=== PATIENT | female | born 1935 | race Caucasian/White ===

== ENCOUNTER 2016-11-22 20:02 | Emergency (ER) | payer MEDICARE, OTHER ==
[~2016-11-22] VITALS: Ht 157.5 cm; Wt 67.8 kg
[~2016-11-22 20:02] MED LIST: CALC-603 PO; DOCU-139 PO; ESTR0.3T26 PO; LEVO125T70 PO; MELO-31 PO; MULT-806 PO; [UNRECOGNIZED DRUG - CODE] PO
[2016-11-22 20:08] VITALS: Ht 157.5 cm; Wt 67.8 kg
--- OUTSIDE RECORDS SUMMARY | 2016-11-22 20:08 | XMS REPORT | Referral Summary ---
Author Author [facility], [facility] Medicine Organization [facility] Address Unknown Phone Unavailable Care Team Providers Care Overnight Caregiver Name Role Phone Marlena Silva Primary Care Physician [phone] Encounter Date(s): 10/27/15 - 10/27/15 [facility], [address] [place] [address] Discharge Diagnosis: Hypertension Discharge Diagnosis: Encounter for removal of sutures Discharge Disposition: 01-Home or Self Care Attending Physician: Tahira Reyes PA-C Admitting Physician: Tahira Reyes PA-C Vital Signs Most recent to 1 oldest [Reference Range]: Peripheral Pulse 68 bpm Rate [60-100 bpm] (10/27/15 12:58 PM) Blood Pressure 165/85 mmHg [90-140/60-90 mmHg] *HI* (10/27/15 12:58 PM) Problem List Condition Effective Dates Status Health Status Informant Allergic Active rhinitis(Confirmed) Hay fever(Confirmed) Active Benign essential Active hypertension(Confirm ed) Bronchitis(Confirmed Active ) Cervical Active radiculopathy(Confir med) Cervical vertebral Active fusion(Confirmed) Cervical Active spondylosis(Confirme d) Cervicogenic Active headache(Confirmed) 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 ) Degeneration of Active lumbar disc(Confirmed) HEADACHE(Confirmed) Active Herpes 2011 Active zoster(Confirmed) 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) IBS (irritable bowel Active syndrome)(Confirmed) Lumbago(Confirmed) Active Lumbosacral Active spondylosis w/o myelopathy(Confirmed ) Neck pain Active (finding)(Confirmed) Cervicalgia(Confirme Active d) Osteoarthritis(Confi Resolved rmed) Overweight(Confirmed Active ) Parotidectomy(Confir Resolved med) PUD (peptic ulcer Active disease)(Confirmed) Sinus Active infections(Confirmed ) Spinal stenosis in Active cervical region (disorder)(Confirmed ) Spinal stenosis, Active lumbar(Confirmed) Spondylolisthesis 2010 Resolved l4-5, l5-S1(Confirmed) Subacromial Active bursitis(Confirmed) Thoracic or Active lumbosacral neuritis or radiculitis, unspecified(Confirme d) thyroid Resolved disease(Confirmed) Ulcers(Confirmed) Active Chicken Active pox(Confirmed) Allergies, Adverse Reactions, Alerts Substance Reaction Severity Status erythromycin Dizziness Active vertigo penicillin Hives/Skin Rash Active WELTS sulfamethoxazole rash Active Medications calcium calcium, 600 mg, Daily, 0 Refill(s) Start Date: 02/04/14 Status: Ordered levothyroxine 100 mcg (0.1 mg) oral tablet See Instructions, TAKE ONE TABLET BY MOUTH DAILY, # 90 tabs, eRx: [facility] #[id number], TAKE ONE TABLET BY MOUTH DAILY Start Date: 09/22/15 Status: Ordered lisinopril 20 mg oral tablet 20 mg 1 tabs, Oral, Daily, # 30 tabs, 1 Refill(s), Pharmacy: [facility] # [id number] Start Date: 10/27/15 Status: Ordered Multivitamin Multivitamin, take 1 by oral route every day, 0 Refill(s) Start Date: 02/04/14 Status: Ordered [place] 5 mg-325 mg oral tablet 1 tabs, Oral, q6hr, as needed for pain, rx must last 30 days Needs appt. for next refill., # 90 tabs, 0 Refill(s) Start Date: 07/15/15 Status: Ordered omeprazole 20 mg oral delayed release capsule See Instructions, TAKE ONE CAPSULE BY MOUTH DAILY, # 30 caps, eRx: [facility] #[id number], TAKE ONE CAPSULE BY MOUTH DAILY Start Date: 10/14/15 Status: Ordered Stool softener Stool softener, take 1 capsule by oral route every day at bedtime as needed, 0 Refill(s) Start Date: 02/04/14 Status: Ordered Results No data available for this section Immunizations Vaccine Date Refusal Reason hepatitis A adult vaccine 06/23/05 hepatitis A adult vaccine 12/29/04 influenza virus vaccine, live 09/14/13 influenza virus vaccine, live 09/15/12 pneumococcal 23-polyvalent vaccine 07/01/06 pneumococcal 23-polyvalent vaccine 05/26/01 tetanus-diphth toxoids (Td) adult/adol 06/11/03 Procedures Procedure Date Related Diagnosis Body Site Left C3-4/C4-5 Transforaminal 08/19/15 Left C2-3 Radiofrequency 06/18/15 Left C4-6 Radiofrequency 04/30/15 Left C2-3 Radiofrequency 10/23/14 Left C2-3 Medial Branch Block w/Diff 09/26/14 Left C2-3 Medial Branch Block 09/12/14 Left Subacromial Bursa Injection Under US 08/26/14 Left C4-6 Radiofrequency 03/06/14 Left C4-6 Medial Branch Block 02/26/14 Left C4-6 Medial Branch Block 02/19/14 NKECHI/BSO 02/06/14 Left C5-6/C6-7 Transforaminal 01/17/14 Left C5-6/C6-7 Transforaminal 12/25/13 Left L3-4/L4-5 Transforaminal 12/13/13 cysto,retrograde pyelogram, balloon dil or 01/20/11 right UPJ obstru bilateral L4-5 Transforaminal 09/29/10 Neck Surgery 2003 Hysterectomy1 1976 Breast Biospy Cataract extraction left Cataract extraction Right Knee Replacement 1ovary sparing Social History Social History Type Response Smoking Status Never smoker Assessment and Plan Extracted from: Title: Ambulatory Patient Education Author: Tahira Reyes PA-C Date : 10/27/15 Family Medicine Suture Removal, Care After Refer to this sheet in the next few weeks. These instructions provide you with information on caring for yourself after your procedure. Your health care provider may also give you more specific instructions. Your treatment has been planned according to current medical practices, but problems sometimes occur. Call your health care provider if you have any problems or questions after your procedure. WHAT TO EXPECT AFTER THE PROCEDURE After your stitches (sutures) are removed, it is typical to have the following: Some discomfort and swelling in the wound area. Slight redness in the area. HOME CARE INSTRUCTIONS If you have skin adhesive strips over the wound area, do not take the strips off. They will fall off on their own in a few days. If the strips remain in place after 14 days, you may remove them. Change any bandages (dressings) at least once a day or as directed by your health care provider. If the bandage sticks, soak it off with warm, soapy water. Apply cream or ointment only as directed by your health care provider. If using cream or ointment, wash the area with soap and water 2 times a day to remove all the cream or ointment. Rinse off the soap and pat the area dry with a clean towel. Keep the wound area dry and clean. If the bandage becomes wet or dirty, or if it develops a bad smell, change it as soon as possible. Continue to protect the wound from injury. Use sunscreen when out in the sun. New scars become sunburned easily. SEEK MEDICAL CARE IF: You have increasing redness, swelling, or pain in the wound. You see pus coming from the wound. You have a fever. You notice a bad smell coming from the wound or dressing. Your wound breaks open (edges not staying together). This information is not intended to replace advice given to you by your health care provider. Make sure you discuss any questions you have with your health care provider. Document Released: 05/17/2002 Document Revised: 06/12/2014 Document Reviewed: [facility] Patient Information 2015 [employer]. Hypertension Hypertension, commonly called high blood pressure, is when the force of blood pumping through your arteries is too strong. Your arteries are the blood vessels that carry blood from your heart throughout your body. A blood pressure reading consists of a higher number over a lower number, such as 110/72. The higher number (systolic) is the pressure inside your arteries when your heart pumps. The lower number (diastolic) is the pressure inside your arteries when your heart relaxes. Ideally you want your blood pressure below 120/80. Hypertension forces your heart to work harder to pump blood. Your arteries may become narrow or stiff. Having hypertension puts you at risk for heart disease, stroke, and other problems. RISK FACTORS Some risk factors for high blood pressure are controllable. Others are not. Risk factors you cannot control include: Race. You may be at higher risk if you are . Age. Risk increases with age. Gender. Men are at higher risk than women before age 45 years. After age 65, women are at higher risk than men. Risk factors you can control include: Not getting enough exercise or physical activity. Being overweight. Getting too much fat, sugar, calories, or salt in your diet. Drinking too much alcohol. SIGNS AND SYMPTOMS Hypertension does not usually cause signs or symptoms. Extremely high blood pressure (hypertensive crisis) may cause headache, anxiety, shortness of breath , and nosebleed. DIAGNOSIS To check if you have hypertension, your health care provider will measure your blood pressure while you are seated, with your arm held at the level of your heart. It should be measured at least twice using the same arm. Certain conditions can cause a difference in blood pressure between your right and left arms. A blood pressure reading that is higher than normal on one occasion does not mean that you need treatment. If it is not clear whether you have high blood pressure, you may be asked to return on a different day to have your blood pressure checked again. Or, you may be asked to monitor your blood pressure at home for 1 or more weeks. TREATMENT Treating high blood pressure includes making lifestyle changes and possibly taking medicine. Living a healthy lifestyle can help lower high blood pressure. You may need to change some of your habits. Lifestyle changes may include: Following the DASH diet. This diet is high in fruits, vegetables, and whole grains. It is low in salt, red meat, and added sugars. Keep your sodium intake below 2,300 mg per day. Getting at least 3045 minutes of aerobic exercise at least 4 times per week. Losing weight if necessary. Not smoking. Limiting alcoholic beverages. Learning ways to reduce stress. Your health care provider may prescribe medicine if lifestyle changes are not enough to get your blood pressure under control, and if one of the following is true: Your systolic blood pressure is above 150. Your diastolic blood pressure is above 90. You have diabetes, and your systolic blood pressure is over 140 or your diastolic blood pressure is over 85. You have heart disease or have had a stroke or heart attack, and your blood pressure is above 130 over 80, which is written as 130/80. HOME CARE INSTRUCTIONS Have your blood pressure rechecked as directed by your health care provider. Take medicines only as directed by your health care provider. Follow the directions carefully. Blood pressure medicines must be taken as prescribed. The medicine does not work as well when you skip doses. Skipping doses also puts you at risk for problems. Do not smoke. Monitor your blood pressure at home as directed by your health care provider. SEEK MEDICAL CARE IF: You think you are having a reaction to medicines taken. You have recurrent headaches or feel dizzy. You have swelling in your ankles. You have trouble with your vision. SEEK IMMEDIATE MEDICAL CARE IF: You develop a severe headache or confusion. You have unusual weakness, numbness, or feel faint. You have severe chest or abdominal pain. You vomit repeatedly. You have trouble breathing. MAKE SURE YOU: Understand these instructions. Will watch your condition. Will get help right away if you are not doing well or get worse. This information is not intended to replace advice given to you by your health care provider. Make sure you discuss any questions you have with your health care provider. Document Released: 08/22/2006 Document Revised: 06/10/2015 Document Reviewed: [facility] Patient Information 2015 [employer]. No follow up information was provided. Extracted from: Title: Office Visit Note- Suture Author: Tahira Reyes PA-C Date: removal/HTN Assessment/Plan Encounter for removal of sutures Sutures were easily removed. Lesion was benign, so no further treatment needed. Ordered: Office Visit Level 4 Est 59887 Hypertension I d/w pt that we should increase lisinopril to 20mg daily. She will take 2 tabs ofwhat she has at home, and a new script wassent to pharmacy. She is to f/u if BP's are still elevated. Ordered: Office Visit Level 4 Est 86258 Orders: lisinopril, 20 mg 1 tabs, Oral, Daily, # 30 tabs, 1 Refill(s), Pharmacy: [facility] #[id number]
--- OUTSIDE RECORDS SUMMARY | 2016-11-22 20:08 | XMS REPORT | Referral Summary ---
Author Author [facility], Family Medicine Organization [facility] Address Unknown Phone Unavailable Care Team Providers Care Cinder Block Mason Name Role Phone Marlena Silva Primary Care Physician [phone] Encounter VC Date(s): 09/29/15 - 09/29/15 [facility] [address] [place] [address]- Discharge Disposition: 01-Home or Self Care Attending Physician: Miguel Angel Silva MD Admitting Physician: Miguel Angel Silva MD Vital Signs Most recent to 1 oldest [Reference Range]: Peripheral Pulse 72 bpm Rate [60-100 bpm] (09/29/15 8:50 AM) Blood Pressure 138/80 mmHg [90-140/60-90 mmHg] (09/29/15 8:50 AM) Problem List Condition Effective Dates Status Health Status Informant Allergic Active rhinitis(Confirmed) Hay fever(Confirmed) Active Bronchitis(Confirmed Active ) Cervical Active radiculopathy(Confir med) Cervical vertebral Active fusion(Confirmed) Cervical Active spondylosis(Confirme d) Cervicogenic Active headache(Confirmed) 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 ) Degeneration of Active lumbar disc(Confirmed) HEADACHE(Confirmed) Active Herpes 2011 Active zoster(Confirmed) IBS (irritable bowel Active syndrome)(Confirmed) Lumbago(Confirmed) Active Lumbosacral Active spondylosis w/o myelopathy(Confirmed ) Neck pain Active (finding)(Confirmed) Cervicalgia(Confirme Active d) Osteoarthritis(Confi Resolved rmed) Overweight(Confirmed Active ) Parotidectomy(Confir Resolved med) PUD (peptic ulcer Active disease)(Confirmed) Sinus Active infections(Confirmed ) Spinal stenosis in Active cervical region (disorder)(Confirmed ) Spinal stenosis, Active lumbar(Confirmed) Spondylolisthesis 2011 Resolved l4-5, l5-S1(Confirmed) Subacromial Active bursitis(Confirmed) Thoracic [...] BY MOUTH DAILY, # 90 tabs, eRx: [facility] #[id number], TAKE ONE TABLET BY MOUTH DAILY Start Date: 09/22/15 Status: Ordered Multivitamin Multivitamin, take 1 by oral route every day, 0 Refill(s) Start Date: 02/04/14 Status: Ordered [place] 5 mg-325 mg oral tablet 1 tabs, Oral, q6hr, as needed for pain, rx must last 30 days Needs appt. for next refill., # 90 tabs, 0 Refill(s) Start Date: 07/15/15 Status: Ordered omeprazole 20 mg oral delayed release capsule See Instructions, TAKE ONE CAPSULE BY MOUTH DAILY, # 30 caps, eRx: [facility] #[id number], TAKE ONE CAPSULE BY MOUTH DAILY Start Date: 09/15/15 Status: Ordered Stool softener Stool softener, take [...] obstru bilateral L4-5 Transforaminal 09/29/10 Neck Surgery 2004 Hysterectomy1 1977 Breast Biospy Cataract extraction left Cataract extraction Right Knee Replacement 1ovary sparing Social History Social History Type Response Smoking Status Never smoker Assessment and Plan Extracted from: Title: Ambulatory Patient Education Author: Miguel Angel Silva MD Date: Allergy Allergic Rhinitis Allergic rhinitis is when the mucous membranes in the nose respond to allergens. Allergens are particles in the air that cause your body to have an allergic reaction. This causes you to release allergic antibodies. Through a chain of events, these eventually cause you to release histamine into the blood stream. Although meant to protect the body, it is this release of histamine that causes your discomfort, such as frequent sneezing, congestion, and an itchy , runny nose. CAUSES Seasonal allergic rhinitis (hay fever) is caused by pollen allergens that may come from grasses, trees, and weeds. Year-round allergic rhinitis (perennial allergic rhinitis) is caused by allergens such as house dust mites, pet dander, and mold spores. SYMPTOMS Nasal stuffiness (congestion). Itchy, runny nose with sneezing and tearing of the eyes. DIAGNOSIS Your health care provider can help you determine the allergen or allergens that trigger your symptoms. If you and your health care provider are unable to determine the allergen, skin or blood testing may be used. TREATMENT Allergic rhinitis does not have a cure, but it can be controlled by: Medicines and allergy shots (immunotherapy). Avoiding the allergen. Hay fever may often be treated with antihistamines in pill or nasal spray forms. Antihistamines block the effects of histamine. There are over-the- counter medicines that may help with nasal congestion and swelling around the eyes. Check with your health care provider before taking or giving this medicine. If avoiding the allergen or the medicine prescribed do not work, there are many new medicines your health care provider can prescribe. Stronger medicine may be used if initial measures are ineffective. Desensitizing injections can be used if medicine and avoidance does not work. Desensitization is when a patient is given ongoing shots until the body becomes less sensitive to the allergen. Make sure you follow up with your health care provider if problems continue. HOME CARE INSTRUCTIONS It is not possible to completely avoid allergens, but you can reduce your symptoms by taking steps to limit your exposure to them. It helps to know exactly what you are allergic to so that you can avoid your specific triggers. SEEK MEDICAL CARE IF: You have a fever. You develop a cough that does not stop easily (persistent). You have shortness of breath. You start wheezing. Symptoms interfere with normal daily activities. Document Released: 05/17/2002 Document Revised: 08/27/2014 Document Reviewed: [facility] Patient Information 2015 [employer]. This information is not intended to replace advice given to you by your health care provider. Make sure you discuss any questions you have with your health care provider. Family Medicine Radicular Pain Radicular pain in either the arm or leg is usually from a bulging or herniated disk in the spine. A piece of the herniated disk may press against the nerves as the nerves exit the spine. This causes pain which is felt at the tips of the nerves down the arm or leg. Other causes of radicular pain may include: Fractures. Heart disease. Cancer. An abnormal and usually degenerative state of the nervous system or nerves (neuropathy). Diagnosis may require CT or MRI scanning to determine the primary cause. Nerves that start at the neck (nerve roots) may cause radicular pain in the outer shoulder and arm. It can spread down to the thumb and fingers. The symptoms vary depending on which nerve root has been affected. In most cases radicular pain improves with conservative treatment. Neck problems may require physical therapy, a neck collar, or cervical traction. Treatment may take many weeks, and surgery may be considered if the symptoms do not improve. Conservative treatment is also recommended for sciatica. Sciatica causes pain to radiate from the lower back or buttock area down the leg into the foot. Often there is a history of back problems. Most patients with sciatica are better after 2 to 4 weeks of rest and other supportive care. Short term bed rest can reduce the disk pressure considerably. Sitting, however, is not a good position since this increases the pressure on the disk. You should avoid bending , lifting, and all other activities which make the problem worse. Traction can be used in severe cases. Surgery is usually reserved for patients who do not improve within the first months of treatment. Only take [id number] or prescription medicines for pain, discomfort, or fever as directed by your caregiver. Narcotics and muscle relaxants may help by relieving more severe pain and spasm and by providing mild sedation. Cold or massage can give significant relief. Spinal manipulation is not recommended. It can increase the degree of disc protrusion. Epidural steroid injections are often effective treatment for radicular pain. These injections deliver medicine to the spinal nerve in the space between the protective covering of the spinal cord and back bones (vertebrae). Your caregiver can give you more information about steroid injections. These injections are most effective when given within two weeks of the onset of pain. You should see your caregiver for follow up care as recommended. A program for neck and back injury rehabilitation with stretching and strengthening exercises is an important part of management. SEEK IMMEDIATE MEDICAL CARE IF: You develop increased pain, weakness, or numbness in your arm or leg. You develop difficulty with bladder or bowel control. You develop abdominal pain. Document Released: 09/29/2005 Document Revised: 11/13/2012 Document Reviewed: [facility] Patient Information 2015 [facility], [facility]. This information is not intended to replace advice given to you by your health care provider. Make sure you discuss any questions you have with your health care provider. No follow up information was provided. Extracted from: Title: Office Visit Note Author: Miguel Angel Silva MD Date: 09/29/15 Assessment/Plan Allergic rhinitis Continue with the current medications. Will also get lab and follow up. Ordered: Office Visit Level 4 Est 38852 Cervical radiculopathy Ordered: Office Visit Level 4 Est 86662 Cervical spondylosis Ordered: Office Visit Level 4 Est 49745 Degeneration of lumbar disc Ordered: Office Visit Level 4 Est 78281 Orders: Comprehensive Metabolic Panel Lipid Panel MG Mammogram Routine Screening Bilat MG Mammogram Routine Screening Bilat TSH with Reflex Free T4
--- OUTSIDE RECORDS SUMMARY | 2016-11-22 20:08 | XMS REPORT | Continuity of Care Document ---
Author Author [facility] Organization 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 Visit Date/Time Discharge Status Pt. Type Provider Facility Loc./Unit Complaint [id number] 11/12/2013 05:32:00 2013 12:30:00 DIS Outpatient Ivan Diaz MD [facility] [id number] 11/08/2013 08:46:00 2013 23:59:59 CLS Outpatient Ivan Diaz MD [facility]
--- OUTSIDE RECORDS SUMMARY | 2016-11-22 20:08 | XMS REPORT | Referral Summary ---
Author Author [facility] Organization [facility] Address Unknown Phone Unavailable Care Team Providers Care Piercing Specialist Name Role Phone Marlena Silva Primary Care Physician [phone] Encounter VC Date(s): 12/29/15 - 12/29/15 [facility] 1946 [address] [place] [id number] Discharge Disposition: 01-Home or Self Care Attending Physician: Wayne Regan Admitting Physician: Wayne Regan Vital Signs Most recent to 1 oldest [Reference Range]: Blood Pressure 156/88 mmHg [90-140/60-90 mmHg] *HI* (12/29/15 10:38 AM) Problem List Condition Effective Dates Status [...] or radiculitis, unspecified(Confirme d) thyroid Resolved disease(Confirmed) Trochanteric Active bursitis, left hip(Confirmed) Ulcers(Confirmed) Active Chicken Active pox(Confirmed) Allergies, Adverse Reactions, Alerts Substance Reaction Severity Status erythromycin Dizziness Active vertigo penicillin Hives/Skin Rash Active WELTS sulfamethoxazole rash Active Medications calcium calcium, 600 mg, Daily, 0 Refill(s) Start Date: 02/04/14 Status: Ordered levothyroxine 100 mcg (0.1 mg) oral tablet See Instructions, TAKE ONE TABLET BY MOUTH DAILY, # 90 tabs, eRx: [facility] #[id number], TAKE ONE TABLET BY MOUTH DAILY Start Date: 12/19/15 Status: Ordered lisinopril 20 mg oral tablet See Instructions, TAKE ONE TABLET BY MOUTH DAILY, # 30 tabs, eRx: [facility] #[id number], TAKE ONE TABLET BY MOUTH DAILY Start Date: 12/29/15 Status: Ordered metoprolol succinate 25 mg oral tablet, extended release 25 mg 1 tabs, Oral, Daily, # 30 tabs, 0 Refill(s), Pharmacy: [facility] # [id number] Start Date: 12/17/15 Status: Ordered Multivitamin Multivitamin, take 1 by oral route every day, 0 Refill(s) Start Date: 02/04/14 Status: Ordered [place] 5 mg-325 mg oral tablet 1 tabs, Oral, q6hr, as needed for pain, rx must last 30 days Needs appt. for next refill., # 90 tabs, 0 Refill(s) Start Date: 07/15/15 Status: Ordered omeprazole 20 mg oral delayed release capsule See Instructions, TAKE ONE CAPSULE BY MOUTH DAILY, # 30 caps, eRx: [facility] #[id number], TAKE ONE CAPSULE BY MOUTH DAILY Start Date: 12/09/15 Status: Ordered Stool softener Stool softener, take [...] Procedure Date Related Diagnosis Body Site Left C4-6 Radiofrequency 11/05/15 Left C3-4/C4-5 Transforaminal 08/19/15 Left C2-3 Radiofrequency [...] Smoking Status Never smoker Assessment and Plan No data available for this section
--- OUTSIDE RECORDS SUMMARY | 2016-11-22 20:08 | XMS REPORT | Continuity of Care Document ---
Author Author [facility] Address Unknown Phone Unavailable Care Team Providers Care Telecommunications Analyst Name Role Phone Miguel Angel Silva PP Unavailable Miguel Angel Silva RP Unavailable Payers Payer name Insurance type Covered green party ID Authorization(s) Unknown Problems Condition Effective Dates (start - stop) Clinical Status Follow-up examination, following other surgery - *Routine Positional vertigo - *Acute URI (upper respiratory infection) - *Acute Epistaxis - *Acute 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 Cervicalgia - Acute Exacerbation Cervicalgia - *Chronic Degeneration of cervical intervertebral disc - *Chronic Postsurgical arthrodesis status - *Chronic Spinal stenosis in cervical region - *Chronic Brachial neuritis or radiculitis nos - *Chronic Cervicalgia - *Chronic Degeneration of cervical intervertebral disc - *Chronic Postsurgical arthrodesis status - *Chronic Spinal stenosis in cervical region - *Chronic Brachial neuritis or radiculitis nos - *Chronic Cervicalgia - Chronic Degeneration of cervical intervertebral disc - Chronic Postsurgical arthrodesis status - Chronic Spinal stenosis in cervical region - Chronic Brachial neuritis or radiculitis nos - Chronic Abdominal pain - *Chronic Anxiety and depression - *Acute Otitis media of right ear - *Acute Postsurgical arthrodesis status - *Chronic Spinal stenosis in cervical region - *Chronic Brachial neuritis or radiculitis nos - *Chronic Postsurgical arthrodesis status - Chronic Spinal stenosis in cervical region - Chronic Brachial neuritis or radiculitis nos - Chronic Benign neoplasm of parotid gland - *Symptomatic Sinusitis, maxillary, chronic - Mild Adult hypothyroidism - *Controlled 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 Postsurgical arthrodesis status - *Chronic Brachial neuritis or radiculitis nos - *Chronic Spinal stenosis in cervical region - *Chronic Postsurgical arthrodesis status - Chronic Brachial neuritis or radiculitis nos - Chronic Spinal stenosis in cervical region - Chronic Influenza Vaccine - Generalized headaches - *Chronic Sinusitis - *Chronic Urinary frequency - *Acute Skin lesion of face - *Acute Hypothyroidism - *Chronic Vaginitis - *Acute LUMBOSACRAL SPONDYLOSIS - LUMB/LUMBOSAC DISC DEGEN - SPIN STEN,LUMBR WO [place] - LUMBAGO - LUMBOSACRAL NEURITIS NOS - ACQ SPONDYLOLISTHESIS - Acute maxillary sinusitis - *Acute Acute bronchitis - *Acute Ear discomfort - *Fair Control Sensorineural hearing loss - *Chronic Sinusitis - *Fair Control Parotid mass - *Stable Swelling, mass, or lump in head and neck - *Chronic Hypothyroidism - *Controlled Other seborrheic keratosis - *Chronic Benign paroxysmal positional vertigo - *Chronic Hyperlipidemia - *Chronic Postsurgical arthrodesis status - *Chronic Spinal stenosis in cervical region - *Chronic Brachial neuritis or radiculitis nos - *Chronic Postsurgical arthrodesis status - Chronic Spinal stenosis in cervical region - Chronic Brachial neuritis or radiculitis nos - Chronic Seborrheic keratosis - *Chronic Solar keratosis - *Chronic Muscle spasm of left shoulder area - *Acute Family History Family Member Diagnosis Age At Onset Status Mother (Unknown) Cancer - breast Yes Father (Unknown) CVA (Stroke) Yes Mother (Unknown) old age Yes Social History Social History Element Description Quantity Unknown Allergies, Adverse Reactions, Alerts Substance Reaction Severity Status ERYTHROMYCIN BASE Dizziness Unknown PENICILLINS Hives/Skin Rash Unknown SULFA (SULFONAMIDE ANTIBIOTICS) RASH Unknown Medications Medication Instructions Dosage Effective Dates (start - stop) Status NORCO (unknown strength) take 1 tablet by oral route every 4 - 6 hours as needed for pain - Active MULTIVITAMINS (unknown strength) take 1 by Oral route every day 2011 - Active Calcium 600 600 mg (1,500 mg) tablet DAILY - Active Synthroid 100 mcg tablet take 1 tablet (100MCG) by oral route every day 100 MCG - Active Flexeril 10 mg tablet take 1 tablet (10MG) by oral route 3 times every day 10 MG - Active ADVIL (unknown strength) take 2 tablet by oral route every 4 - 6 hours as needed with food - Active STOOL SOFTENER (unknown strength) take 1 capsule by oral route every day at bedtime as needed - Active Premarin 0.3 mg tablet QOD - Active gabapentin 100 mg capsule Take 1 capsule by mouth at bedtime for 3 nights. If tolerated, take 2 capsules by mouth at bedtime for 3 nights. If symptoms persist, and medication is tolerated, may take 3 capsules by mouth at bedtime as needed. - Active [place] 5 mg-325 mg tablet take 1 tablet by oral route every 6 hours as needed for pain 0 - Active Immunizations Vaccine Date Status Comments Flu (split) (3 yrs or older) completed Flu (split) (3 yrs or older) completed Results Test Name Date and Time Measure Units Reference Range Abnormal Flag Comments Unknown Vital Signs Date / Time: Height Weight Pulse Rate Blood Pressure Temperature /16:07:00 62.00 in 142.20 lbs 98.1 F Procedures Procedure Date Unknown Encounters Encounter Location Date Patient Visit [facility] FC ENT Patient Visit [facility] FM Patient Visit [facility] New FM Patient Visit Patient Visit [facility] FM Patient Visit [facility] Patient [facility] FM Patient Visit [facility] Patient [facility] FM Patient [facility] New FM Patient [facility] New FM Patient [facility] Patient [facility] Patient Visit [facility] New FM Patient Visit [facility] New FM Patient Visit Con[facility] Patient Visit [facility] FM Patient [facility] Patient [facility] New FM Patient Visit [facility] Patient Visit [facility] New FM Patient Visit [facility] New Patient Visit [facility] Advance Directives Directive Effective Date Unknown
--- OUTSIDE RECORDS SUMMARY | 2016-11-22 20:08 | XMS REPORT | Referral Summary ---
Author Author [facility] Organization [facility] Address Unknown Phone Unavailable Care Team Providers Care Campaign Coordinator Name Role Phone Marlena Silva Primary Care Physician [phone] Encounter VC Date(s): 10/21/15 - 10/21/15 [facility] [address] [facility] [place] [address] Discharge Diagnosis: Cervical vertebral fusion Discharge Diagnosis: Degeneration of cervical intervertebral disc (disorder) Discharge Diagnosis: Cervical spondylosis Discharge Diagnosis: Cervicalgia Discharge Disposition: 01-Home or Self Care Attending Physician: Katelyn Mejia PA-C Admitting Physician: Katelyn Mejia PA-C Referring Physician: Miguel Angel Silva MD Vital Signs Most recent to 1 oldest [Reference Range]: Temperature Tympanic 36.5 degC [36.6-38.1 degC] *LOW* (10/21/15 9:24 AM) Blood Pressure 148/72 mmHg [90-140/60-90 mmHg] *HI* (10/21/15 9:24 AM) Problem List Condition Effective Dates Status [...] BY MOUTH DAILY, # 90 tabs, eRx: [facility] #[id number], TAKE ONE TABLET BY MOUTH DAILY Start Date: 09/22/15 Status: Ordered lisinopril 10 mg oral tablet 10 mg 1 tabs, Oral, Daily, # 30 tabs, 2 Refill(s), Pharmacy: [facility] # [id number], 1 tabs Oral Daily Start Date: 10/16/15 Status: Ordered Multivitamin Multivitamin, take 1 by oral route every day, 0 Refill(s) Start Date: 02/04/14 Status: Ordered [place] 5 mg-325 mg oral tablet 1 tabs, Oral, q6hr, as needed for pain, rx must last 30 days Needs appt. for next refill., # 90 tabs, 0 Refill(s) Start Date: 07/15/15 Status: Ordered omeprazole 20 mg oral delayed release capsule See Instructions, TAKE ONE CAPSULE BY MOUTH DAILY, # 30 caps, eRx: [facility] #[id number], TAKE ONE CAPSULE BY MOUTH DAILY Start Date: 10/14/15 Status: Ordered Stool softener Stool softener, take 1 capsule by oral route every day at bedtime as needed, 0 Refill(s) Start Date: 02/04/14 Status: Ordered Results No data available for this section Immunizations Vaccine Date Refusal Reason hepatitis A adult vaccine 06/23/05 hepatitis A adult vaccine 4/26/05 influenza virus vaccine, live 09/14/13 influenza virus [...] smoker Assessment and Plan Extracted from: Title: Office Visit Note Author: Katelyn Mejia PA-C Date: 10/21/15 Assessment/Plan Cervical spondylosis Cervical vertebral fusion Cervicalgia Degeneration of cervical intervertebral disc (disorder) I discussed the patient's plan of care with Dr. Albright. I also reviewed the patient's most recent cervical MRI. According to this MRI the patient has postoperative changes with ACDF from C5 to C7. She has multiple levels of facet arthropathy with degenerationat the adjacent levelsof her surgery, C3 4 and C4 5 with some stenosis. She is primarily having mechanical painand generally benefits from periodic radiofrequency ablations, although had epidurals years ago. Dr. Albright recommends proceeding with repeating her left C4 to C6 radiofrequency ablation after October 31, 2015.The patient does understand the rationale for the procedure as well as possible complications including bleeding, infection, allergic reaction, nerve irritation or damage. The patient also understands other remote possible complications including paraplegia, quadriplegia, , stroke, and seizure. The patient voiced understanding and wishes to proceed. The patient does request sedation and understands there is no guarantee on insurance coverage of sedation. The patient will follow-up in 2-3 months following the injection. If the patient fails to improve or worsening symptoms, they will follow-up sooner. The patient voiced understanding and agrees to the above plan. The above was in discussionwith .
--- OUTSIDE RECORDS SUMMARY | 2016-11-22 20:08 | XMS REPORT | Referral Summary ---
Author Author [facility] Organization [facility] Address Unknown Phone Unavailable Care Team Providers Care Guide Foreign Tour Name Role Phone Marlena Silva Primary Care Physician [phone] Encounter VC Date(s): 08/04/15 - 08/04/15 [facility] 1946 [facility] [place], [place] [address] Discharge Diagnosis: Cervical vertebral fusion Discharge Diagnosis: Cervical spondylosis Discharge Diagnosis: Cervical radiculopathy Discharge Diagnosis: Spinal stenosis in cervical region (disorder) Discharge Diagnosis: Degeneration of cervical intervertebral disc (disorder) Discharge Disposition: 01-Home or Self Care Attending Physician: Katelyn Mejia PA-C Admitting Physician: Katelyn Mejia PA-C Vital Signs Most recent to 1 oldest [Reference Range]: Temperature Oral 36.6 degC [35.8-37.3 degC] (08/04/15 8:02 AM) Blood Pressure 126/74 mmHg [90-140/60-90 mmHg] (08/04/15 8:02 AM) Problem List Condition Effective Dates Status [...] levothyroxine 100 mcg (0.1 mg) oral tablet 100 mcg 1 tabs, Oral, Daily, # 90 tabs, 1 Refill(s), Pharmacy: [facility] #[id number], 1 tabs Oral Daily,x90 days Start Date: 03/25/15 Stop Date: 06/23/15 Status: Ordered Mobic 7.5 mg oral tablet See Instructions, TAKE ONE TABLET BY MOUTH TWICE A DAY, # 60 tabs, 1 Refill(s), eRx: [facility] #[id number], TAKE ONE TABLET BY MOUTH TWICE A DAY Start Date: 07/23/14 Status: Ordered Multivitamin Multivitamin, take 1 by oral route every day, 0 Refill(s) Start Date: 02/04/14 Status: Ordered [place] 5 mg-325 mg oral tablet 1 tabs, Oral, q6hr, as needed for pain, rx must last 30 days Needs appt. for next refill., # 90 tabs, 0 Refill(s) Start Date: 07/15/15 Status: Ordered omeprazole 20 mg oral delayed release capsule See Instructions, TAKE ONE CAPSULE BY MOUTH DAILY, # 30 caps, 1 Refill(s), eRx: [facility] #[id number], TAKE ONE CAPSULE BY MOUTH DAILY Start Date: 07/15/15 Status: Ordered Premarin 0.3 mg oral tablet See Instructions, TAKE ONE TABLET BY MOUTH EVERY OTHER DAY, # 30 tabs, eRx: [facility] #[id number], TAKE ONE TABLET BY MOUTH EVERY OTHER DAY Start Date: 03/03/15 Status: Ordered Stool softener Stool softener, take [...] Procedure Date Related Diagnosis Body Site Left C2-3 Radiofrequency 06/18/15 Left C4-6 Radiofrequency [...] Visit Note Author: Katelyn Mejia PA-C Date: 08/04/15 Assessment/Plan Cervical radiculopathy Cervical spondylosis Cervical vertebral fusion Degeneration of cervical intervertebral disc (disorder) Spinal stenosis in cervical region (disorder) I discussed this patient's plan of care with Dr. Albright. I also reviewed the patient's most recent cervical MRI. According to this MRI the patient has postoperative changes with ACDF from C5 to C7. She has multiple levels of facet arthropathywithdegeneration abovethe level of her surgery at C3 4 and C4 5causing some moderate to severespinal stenosis . There is no current surgical indication and she does not feel that any further interventional treatments are needed at this time. She does have some mild tenderness in the left paraspinal region, but reports that this is manageable at this time. We discussed that if her symptoms worsen, she may call back to the clinic to repeat her leftC3 4 and C4 5 transforaminal epiduralin the next 4-6 weeks. Otherwise,the patient will follow-up here on an as-needed basis if symptoms worsen. The patient voiced understanding and agrees to the above plans. The above was in discussion with Dr. Albright.
--- OUTSIDE RECORDS SUMMARY | 2016-11-22 20:08 | XMS REPORT | Referral Summary ---
Author Author [facility], [facility] Medicine Organization [facility] Address Unknown Phone Unavailable Care Team Providers Care Product Expert Name Role Phone Marlena Silva Primary Care Physician [phone] Encounter VC Date(s): 12/30/15 - 12/30/15 [facility] [address] [place] [address] Discharge Diagnosis: Benign essential hypertension Discharge Disposition: 01-Home or Self Care Attending Physician: Tahira Reyes PA-C Admitting Physician: Tahira Reyes PA-C Vital Signs Most recent to 1 oldest [Reference Range]: Blood Pressure 136/80 mmHg [90-140/60-90 mmHg] (12/30/15 8:40 AM) Problem List Condition Effective Dates Status [...] Reaction Severity Status erythromycin Dizziness Active vertigo lisinopril JV-I cough Active penicillin Hives/Skin Rash Active WELTS sulfamethoxazole rash Active Medications calcium calcium, 600 mg, Daily, 0 Refill(s) Start Date: 02/04/14 Status: Ordered levothyroxine 100 mcg (0.1 mg) oral tablet See Instructions, TAKE ONE TABLET BY MOUTH DAILY, # 90 tabs, eRx: [facility] #[id number], TAKE ONE TABLET BY MOUTH DAILY Start Date: 12/19/15 Status: Ordered metoprolol succinate 25 mg oral tablet, extended release 25 mg 1 tabs, Oral, Daily, # 30 tabs, 0 Refill(s), Pharmacy: [facility] # [id number] Start Date: 12/17/15 Status: Ordered Multivitamin Multivitamin, take 1 by oral route every day, 0 Refill(s) Start Date: 02/04/14 Status: Ordered [place] 5 mg-325 mg oral tablet 1 tabs, Oral, q6hr, as needed for pain, rx must last 30 days Needs appt. for next refill., # 90 tabs, 0 Refill(s) Start Date: 07/15/15 Status: Ordered omeprazole 20 mg oral delayed release capsule See Instructions, TAKE ONE CAPSULE BY MOUTH DAILY, # 30 caps, eRx: [facility] #[id number], TAKE ONE CAPSULE BY MOUTH DAILY Start Date: 12/09/15 Status: Ordered Stool softener Stool softener, take 1 capsule by oral route every day at bedtime as needed, 0 Refill(s) Start Date: 02/04/14 Status: Ordered Results No data available for this section Immunizations Vaccine Date Refusal Reason tetanus/diphth/pertuss (Tdap) adult/adol 12/30/15 hepatitis A adult vaccine 06/23/05 hepatitis A [...] L4-5 Transforaminal 09/29/10 Neck Surgery 2004 Hysterectomy1 1976 Breast Biospy Cataract extraction left Cataract extraction Right Knee Replacement 1ovary sparing Social History Social History Type Response Smoking Status Never smoker Assessment and Plan Extracted from: Title: Ambulatory Patient Education Author: Tahira Reyes PA-C Date : 12/30/15 Family Medicine Hypertension Hypertension, commonly called high blood pressure, [...] Released: 08/22/2006 Document Revised: 06/10/2015 Document Reviewed: [facility] Patient Information 2015 [employer] [facility]. Tdap Vaccine (Tetanus, Diphtheria and Pertussis): What You Need to Know 1. Why get vaccinated? Tetanus, diphtheria and pertussis are very serious diseases. Tdap vaccine can protect us from these diseases. And, Tdap vaccine given to women can protect babies against pertussis. TETANUS (Lockjaw) is rare in the [place] today. It causes painful muscle tightening and stiffness, usually all over the body. It can lead to tightening of muscles in the head and neck so you can't open your mouth, swallow, or sometimes even breathe. Tetanus kills about 1 out of 10 people who are infected even after receiving the best medical care. DIPHTHERIA is also rare in the [place] today. It can cause a thick coating to form in the back of the throat. It can lead to breathing problems, heart failure, paralysis, and . PERTUSSIS (Whooping Cough) causes severe coughing spells, which can cause difficulty breathing, vomiting and disturbed sleep. It can also lead to weight loss, incontinence, and rib fractures. Up to 2 in 100 adolescents and 5 in 100 adults with pertussis are hospitalized or have complications, which could include pneumonia or . These diseases are caused by bacteria. Diphtheria and pertussis are spread from person to person through secretions from coughing or sneezing. Tetanus enters the body through cuts, scratches, or wounds. Before vaccines, as many as 200,000 cases of diphtheria, 200,000 cases of pertussis, and hundreds of cases of tetanus, were reported in the [place] each year. Since vaccination began, reports of cases for tetanus and diphtheria have dropped by about 99% and for pertussis by about 80%. 2. Tdap vaccine Tdap vaccine can protect adolescents and adults from tetanus, diphtheria, and pertussis. One dose of Tdap is routinely given at age 11 or 12. People who did not get Tdap at that age should get it as soon as possible. Tdap is especially important for healthcare professionals and anyone having close contact with a baby younger than 12 months. women should get a dose of Tdap during every , to protect the from pertussis. Infants are most at risk for severe, life-threatening complications from pertussis. Another vaccine, called Td, protects against tetanus and diphtheria, but not pertussis. A Td booster should be given every 10 years. Tdap may be given as one of these boosters if you have never gotten Tdap before. Tdap may also be given after a severe cut or burn to prevent tetanus infection. Your doctor or the person giving you the vaccine can give you more information. Tdap may safely be given at the same time as other vaccines. 3. Some people should not get this vaccine A person who has ever had a life-threatening allergic reaction after a previous dose of any diphtheria, tetanus or pertussis containing vaccine, OR has a severe allergy to any part of this vaccine, should not get Tdap vaccine. Tell the person giving the vaccine about any severe allergies. Anyone who had coma or long repeated seizures within 7 days after a childhood dose of DTP or DTaP, or a previous dose of Tdap, should not get Tdap, unless a cause other than the vaccine was found. They can still get Td. Talk to your doctor if you: have seizures or another nervous system problem, had severe pain or swelling after any vaccine containing diphtheria, tetanus or pertussis, ever had a condition called Guillain-Hull Syndrome (GBS), aren't feeling well on the day the shot is scheduled. 4. Risks With any medicine, including vaccines, there is a chance of side effects. These are usually mild and go away on their own. Serious reactions are also possible but are rare. Most people who get Tdap vaccine do not have any problems with it. Mild problems following Tdap (Did not interfere with activities) Pain where the shot was given (about 3 in 4 adolescents or 2 in 3 adults) Redness or swelling where the shot was given (about 1 person in 5) Mild fever of at least 100.4F (up to about 1 in 25 adolescents or 1 in 100 adults) Headache (about 3 or 4 people in 10) Tiredness (about 1 person in 3 or 4) Nausea, vomiting, diarrhea, stomach ache (up to 1 in 4 adolescents or 1 in 10 adults) Chills, sore joints (about 1 person in 10) Body aches (about 1 person in 3 or 4) Rash, swollen glands (uncommon) Moderate problems following Tdap (Interfered with activities, but did not require medical attention) Pain where the shot was given (up to 1 in 5 or 6) Redness or swelling where the shot was given (up to about 1 in 16 adolescents or 1 in 12 adults) Fever over 102F (about 1 in 100 adolescents or 1 in 250 adults) Headache (about 1 in 7 adolescents or 1 in 10 adults) Nausea, vomiting, diarrhea, stomach ache (up to 1 or 3 people in 100) Swelling of the entire arm where the shot was given (up to about 1 in 500 ). Severe problems following Tdap (Unable to perform usual activities; required medical attention) Swelling, severe pain, bleeding and redness in the arm where the shot was given (rare). Problems that could happen after any vaccine: People sometimes faint after a medical procedure, including vaccination. Sitting or lying down for about 15 minutes can help prevent fainting, and injuries caused by a fall. Tell your doctor if you feel dizzy, or have vision changes or ringing in the ears. Some people get severe pain in the shoulder and have difficulty moving the arm where a shot was given. This happens very rarely. Any medication can cause a severe allergic reaction. Such reactions from a vaccine are very rare, estimated at fewer than 1 in a million doses, and would happen within a few minutes to a few hours after the vaccination. As with any medicine, there is a very remote chance of a vaccine causing a serious injury or . The safety of vaccines is always being monitored. For more information, visit: www.cdc.gov/vaccinesafety/ 5. What if there is a serious problem? What should I look for? Look for anything that concerns you, such as signs of a severe allergic reaction, very high fever, or unusual behavior. Signs of a severe allergic reaction can include hives, swelling of the face and throat, difficulty breathing, a fast heartbeat, dizziness, and weakness. These would usually start a few minutes to a few hours after the vaccination. What should I do? If you think it is a severe allergic reaction or other emergency that can 't wait, call or get the person to the nearest hospital. Otherwise, call your doctor. Afterward, the reaction should be reported to the Vaccine Adverse Event Reporting System (VAERS). Your doctor might file this report, or you can do it yourself through the VAERS web site at www.vaers.hhs.gov, or by calling 9-613- 825-1519. VAERS does not give medical advice. 6. The National Vaccine Injury Compensation Program The National Vaccine Injury Compensation Program (VICP) is a federal program that was created to compensate people who may have been injured by certain vaccines. Persons who believe they may have been injured by a vaccine can learn about the program and about filing a claim by calling or visiting the VICP website at www.hrsa.gov/vaccinecompensation. There is a time limit to file a claim for compensation. 7. How can I learn more? Ask your doctor. He or she can give you the vaccine package insert or suggest other sources of information. Call your local or state health department. Contact the Centers for Disease Control and Prevention (CDC): Call (4-793-GKA-INFO) or Visit CDC's website at www.cdc.gov/vaccines CDC Tdap Vaccine VIS (10/29/14) This information is not intended to replace advice given to you by your health care provider. Make sure you discuss any questions you have with your health care provider. Document Released: 02/20/2013 Document Revised: 06/10/2015 Document Reviewed: [employer] Patient Information 2015 [employer]. No follow up information was provided. Extracted from: Title: Office Visit Note- HTN, TDAP Author: Tahira Reyes PA-C Date : 12/30/15 Assessment/Plan Benign essential hypertension Pt advised to stay off of the Lisinopril for now. Continue on Metoprolol. Today, BP seems to be fairly controlled. Check BP' s at home/Sunil's and RTC if consistently elevated. Could add Norvasc, or ARB. Ordered: Office Visit Level 3 Est 61191 Encounter for immunization TdAP given to pt today. Monitor abrasion, and let us know if changing. Ordered: Office Visit Level 3 Est [id number]
--- OUTSIDE RECORDS SUMMARY | 2016-11-22 20:08 | XMS REPORT | Referral Summary ---
Author Author [facility], [facility] Organization [facility] Address Unknown Phone Unavailable Care Team Providers Care Certified Nuclear Medicine Technologist Name Role Phone Marlena Silva Primary Care Physician [phone] Encounter VC Date(s): 10/22/16 - 10/22/16 [facility] [address] [place] [id number] Discharge Disposition: 01-Home or Self Care Attending Physician: Miguel Angel Silva MD Admitting Physician: Miguel Angel Silva MD Vital Signs Most recent to 1 oldest [Reference Range]: Blood Pressure 158/82 mmHg [90-140/60-90 mmHg] *HI* (10/22/16 10:28 AM) Problem List Condition Effective Dates Status Health Status Informant Allergic Active rhinitis(Confirmed) Hay fever(Confirmed) Active Benign essential Active hypertension(Confirm ed) Abnormal blood Active sugar(Confirmed) Bronchitis(Confirmed Active ) Cervical Active radiculopathy(Confir med) [...] TABLET BY MOUTH DAILY, # 90 tabs, 2 Refill(s), eRx: [facility] #[id number], TAKE ONE TABLET BY MOUTH DAILY Start Date: 03/09/16 Status: Ordered Metoprolol Succinate ER 25 mg oral tablet, extended release See Instructions, TAKE ONE TABLET BY MOUTH DAILY, # 30 tabs, 4 Refill(s), eRx: [facility] #[id number], TAKE ONE TABLET BY MOUTH DAILY Start Date: 09/13/16 Status: Ordered Multivitamin Multivitamin, take 1 by oral route every day, 0 Refill(s) Start Date: 02/04/14 Status: Ordered omeprazole 20 mg oral delayed release capsule See Instructions, TAKE ONE CAPSULE BY MOUTH DAILY, # 30 caps, eRx: [facility] #[id number], TAKE ONE CAPSULE BY MOUTH DAILY Start Date: 06/28/16 Status: Ordered Bermudez Stool Softener mg, Oral, BID, 0 Refill(s) Start Date: 10/22/16 Status: Ordered Tylenol 8 HR Arthritis Pain mg, Oral, q8hr, 0 Refill(s) Start Date: 10/22/16 Status: Ordered Results No data available for this section Immunizations Given and Recorded Vaccine Date Status Refusal Reason tetanus/diphth/pertuss (Tdap) adult/adol 12/30/15 Given hepatitis A adult vaccine 06/23/05 Recorded hepatitis A adult vaccine 12/29/04 Recorded influenza virus vaccine, inactivated1 06/04/16 Recorded influenza virus vaccine, inactivated 06/04/16 Recorded influenza virus vaccine, live 09/14/13 Given influenza virus vaccine, live 09/15/12 Given pneumococcal 13-valent conjugate vaccine 10/22/16 Given pneumococcal 23-polyvalent vaccine 07/01/06 Recorded pneumococcal 23-polyvalent vaccine 05/26/01 Recorded tetanus-diphth toxoids (Td) adult/adol 06/11/03 Recorded 1Location History: [facility] Procedures Procedure Date Related Diagnosis Body Site Left C4-6 Radiofrequency 06/09/16 Left C2-3 Radiofrequency 01/07/16 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 2ovary sparing Social History Social History Type Response Smoking Status Never smoker Assessment and Plan Extracted from: Title: Ambulatory Patient Education Author: José Luis Joyce RN Date: 10/22/16 Endocrinology Hypoglycemia Low blood sugar (hypoglycemia) means that the level of sugar in your blood is lower than it should be. Signs of low blood sugar include: Getting sweaty. Feeling hungry. Feeling dizzy or weak. Feeling sleepier than normal. Feeling nervous. Headaches. Having a fast heartbeat. Low blood sugar can happen fast and can be an emergency. Your doctor can do tests to check your blood sugar level. You can have low blood sugar and not have diabetes. HOME CARE Check your blood sugar as told by your doctor. If it is less than 70 mg/ dl or as told by your doctor, take 1 of the followin to 4 glucose tablets. cup clear juice. cup soda pop, not diet. 1 cup milk. 5 to 6 hard candies. Recheck blood sugar after 15 minutes. Repeat until it is at the right level. Eat a snack if it is more than 1 hour until the next meal. Only take medicine as told by your doctor. Do not skip meals. Eat on time. Do not drink alcohol except with meals. Check your blood glucose before driving. Check your blood glucose before and after exercise. Always carry treatment with you, such as glucose pills. Always wear a medical alert bracelet if you have diabetes. GET HELP RIGHT AWAY IF: Your blood glucose goes below 70 mg/dl or as told by your doctor, and you : Are confused. Are not able to swallow. Pass out (faint). You cannot treat yourself. You may need someone to help you. You have low blood sugar problems often. You have problems from your medicines. You are not feeling better after 3 to 4 days. You have vision changes. MAKE SURE YOU: Understand these instructions. Will watch this condition. Will get help right away if you are not doing well or get worse. This information is not intended to replace advice given to you by your health care provider. Make sure you discuss any questions you have with your health care provider. Document Released: 11/16/2010 Document Revised: 09/12/2015 Document Reviewed: [employer] Patient Education 2016 [employer] No follow up information was provided.
--- OUTSIDE RECORDS SUMMARY | 2016-11-22 20:08 | XMS REPORT | Continuity of Care Document ---
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 Positional vertigo - *Acute URI (upper respiratory infection) - *Acute Epistaxis - *Acute Swelling, mass, or lump in head and neck - *Chronic Hypothyroidism - *Controlled Other seborrheic keratosis - *Chronic Benign paroxysmal positional vertigo - *Chronic Hyperlipidemia - *Chronic Abdominal pain - *Chronic Anxiety and depression - *Acute Otitis media of right ear - *Acute Benign neoplasm of parotid gland - *Symptomatic Sinusitis, maxillary, chronic - Mild Adult hypothyroidism - *Controlled 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 Influenza Vaccine - Generalized headaches - *Chronic [...] - *Fair Control Parotid mass - *Stable Seborrheic keratosis - *Chronic Solar keratosis - *Chronic Family History Family Member Diagnosis Age At Onset Status Unknown Social History Social History Element Description Quantity Unknown Allergies, Adverse Reactions, Alerts Substance Reaction Severity Status ERYTHROMYCIN BASE Dizziness Unknown PENICILLINS Hives/Skin Rash Unknown SULFA (SULFONAMIDE ANTIBIOTICS) RASH Unknown Medications Medication Instructions Dosage Effective Dates (start - stop) Status Calcium 600 600 mg (1,500 mg) tablet DAILY - Active MULTIVITAMINS (unknown strength) take 1 by Oral route every day 2011 - Active Premarin 0.3 mg tablet QOD - Active Mobic 7.5 mg tablet one daily 7.5 MG - Active Synthroid 100 mcg tablet take 1 tablet (100MCG) by oral route every day 100 MCG - Active Immunizations Vaccine Date Status Comments Flu (split) (3 yrs or older) completed Flu (split) (3 yrs or older) completed Results Test Name Date and Time Measure Units Reference Range Abnormal Flag Comments Unknown Vital Signs Date / Time: Height Weight Pulse Rate Blood Pressure Temperature /15:04:00 62.00 in 142.00 lbs 138/80 mm[Hg] 97.2 F Procedures Procedure Date Unknown Encounters Encounter Location Date Patient Visit [facility] Patient Visit [facility] Patient Visit [facility] Patient Visit [facility] Patient Visit Patient Visit [facility] Patient Visit [facility] Patient Visit [facility] Patient Visit [facility] Patient Visit [facility] Patient Visit [facility] Patient Visit [facility] Patient Visit [facility] Patient Visit [facility] Patient Visit [facility] Advance Directives Directive Effective Date Unknown
--- OUTSIDE RECORDS SUMMARY | 2016-11-22 20:09 | XMS REPORT | Referral Summary ---
Author Author [facility], [facility] Medicine Organization [facility] Address Unknown Phone Unavailable Care Team Providers Care Bearing Maker Name Role Phone Marlena Silva Primary Care Physician [phone] Encounter VC Date(s): 01/24/15 - 01/24/15 [facility], [address] [place] [address] Discharge Diagnosis: Fatigue Discharge Diagnosis: Difficulty swallowing Discharge Diagnosis: Hair loss Discharge Disposition: 01-Home or Self Care Attending Physician: Brittany Ybarra APRN Admitting Physician: Brittany Ybarra APRN Vital Signs Most recent to 1 oldest [Reference Range]: Temperature Tympanic 36.3 degC [36.6-38.1 degC] *LOW* (01/24/15 9:35 AM) Peripheral Pulse 72 bpm Rate [60-100 bpm] (01/24/15 9:35 AM) Blood Pressure 132/86 mmHg [90-140/60-90 mmHg] (01/24/15 9:35 AM) Problem List Condition Effective Dates Status [...] Daily, # 90 tabs, 1 Refill(s), Pharmacy: [facility] #[id number], 1 tabs Oral Daily,x90 days Start Date: 03/25/15 Stop Date: 06/23/15 Status: Ordered Mobic 7.5 mg oral tablet See Instructions, TAKE ONE TABLET BY MOUTH TWICE A DAY, # 60 tabs, 1 Refill(s), eRx: [facility] #[id number], TAKE ONE TABLET BY MOUTH TWICE A DAY Start Date: 07/23/14 Status: Ordered Multivitamin Multivitamin, take 1 by oral route every day, 0 Refill(s) Start Date: 02/04/14 Status: Ordered [place] 5 mg-325 mg oral tablet 1 tabs, Oral, q6hr, as needed for pain, rx must last 30 days Needs appt. for next refill., # 90 tabs, 0 Refill(s) Start Date: 07/15/15 Status: Ordered omeprazole 20 mg oral delayed release capsule See Instructions, TAKE ONE CAPSULE BY MOUTH DAILY, # 30 caps, 1 Refill(s), eRx: [facility] #[id number], TAKE ONE CAPSULE BY MOUTH DAILY Start Date: 07/15/15 Status: Ordered Premarin 0.3 mg oral tablet See Instructions, TAKE ONE TABLET BY MOUTH EVERY OTHER DAY, # 30 tabs, eRx: [facility] #[id number], TAKE ONE TABLET BY MOUTH EVERY OTHER DAY Start Date: 03/03/15 Status: Ordered Stool softener Stool softener, take 1 capsule by oral route every day at bedtime as needed, 0 Refill(s) Start Date: 02/04/14 Status: Ordered Results Chemistry Most recent to 1 oldest [Reference Range]: Sodium Lvl [135-144 142 mEq/L mEq/L] (01/24/15 2:00 PM) Potassium Lvl 4.0 mEq/L [3.5-5.2 mEq/L] (01/24/15 2:00 PM) Chloride [99-111 105 mEq/L mEq/L] (01/24/15 2:00 PM) CO2 [22-31 mEq/L] 28 mEq/L (01/24/15 2:00 PM) AGAP [3-20] 9 (01/24/15 2:00 PM) BUN [10-20 mg/dL] 19 mg/dL (01/24/15 2:00 PM) Glucose Lvl [70-99 107 mg/dL mg/dL] *HI* (01/24/15 2:00 PM) Creatinine Lvl 0.73 mg/dL [0.57-1.11 mg/dL] (01/24/15 2:00 PM) eGFR [>60 mL/min] >60 mL/min 1 (01/24/15 2:00 PM) Calcium Lvl 10.5 mg/dL [8.9-10.5 mg/dL] (01/24/15 2:00 PM) Albumin Lvl [3.4-4.8 4.0 gm/dL gm/dL] (01/24/15 2:00 PM) Total Protein 6.3 gm/dL [6.2-8.1 gm/dL] (01/24/15 2:00 PM) Globulin [1.8-4.0 2.3 gm/dL gm/dL] (01/24/15 2:00 PM) ALT [0-55 U/L] 16 U/L (01/24/15 2:00 PM) AST [5-34 U/L] 19 U/L (01/24/15 2:00 PM) Alk Phos [40-150 84 U/L U/L] (01/24/15 2:00 PM) Bili Total [0.2-1.2 0.3 mg/dL mg/dL] (01/24/15 2:00 PM) Iron [50-170 mcg/dL] 56 mcg/dL (01/24/15 2:00 PM) TIBC [260-445 327 mcg/dL mcg/dL] (01/24/15 2:00 PM) Unbound Iron Content 271 [126-382] (01/24/15 2:00 PM) Iron Sat [11-46 %] 17 % (01/24/15 2:00 PM) TSH with Reflex Free 1.43 T4 [0.35-4.94] (01/24/15 2:00 PM) 1Result Comment: Multiply eGFR results by 1.21 for race. Immunizations Vaccine Date Refusal Reason hepatitis A [...] obstru bilateral L4-5 Transforaminal 09/29/10 Neck Surgery 20031 1976 Breast Biospy Cataract extraction left Cataract extraction Right Knee Replacement 1ovary sparing Social History Social History Type Response Smoking Status Never smoker Assessment and Plan No data available for this section
--- OUTSIDE RECORDS SUMMARY | 2016-11-22 20:09 | XMS REPORT | Referral Summary ---
Author Author [facility] Organization [facility] Address Unknown Phone Unavailable Care Team Providers Care Directional Drill Operator Name Role Phone Marlena Silva Primary Care Physician [phone] Encounter VC Date(s): 06/18/15 - 06/18/15 [facility] [address] [facility] [place] [id number] Discharge Diagnosis: Cervical spondylosis Discharge Diagnosis: Cervical vertebral fusion Discharge Diagnosis: Cervicalgia Discharge Diagnosis: Cervicogenic headache Discharge Disposition: 01-Home or Self Care Attending Physician: Felton Albright MD Admitting Physician: Felton Albright MD Vital Signs Most recent to 1 oldest [Reference Range]: Peripheral Pulse 73 bpm Rate [60-100 bpm] (06/18/15 7:49 AM) Respiratory Rate 14 br/min [14-20 br/min] (06/18/15 7:49 AM) Blood Pressure 140/90 mmHg [90-140/60-90 mmHg] (06/18/15 7:49 AM) SpO2 100 % (06/18/15 7:49 AM) Problem List Condition Effective Dates Status Health Status Informant Allergic Active rhinitis(Confirmed) Hay fever(Confirmed) Active Bronchitis(Confirmed Active ) Cervical fusion in Resolved neck(Confirmed) Cervical vertebral Active fusion(Confirmed) Cervical Active spondylosis(Confirme [...] # 90 tabs, 1 Refill(s), Pharmacy: [facility] #[id number], 1 tabs Oral Daily,x90 days Start Date: 03/25/15 Stop Date: 06/23/15 Status: Ordered Mobic 7.5 mg oral tablet See Instructions, TAKE ONE TABLET BY MOUTH TWICE A DAY, # 60 tabs, 1 Refill(s), eRx: [facility] #[id number], TAKE ONE TABLET BY MOUTH TWICE A DAY Start Date: 07/23/14 Status: Ordered Multivitamin Multivitamin, take 1 by oral route every day, 0 Refill(s) Start Date: 02/04/14 Status: Ordered [place] 5 mg-325 mg oral tablet 1 tabs, Oral, q6hr, as needed for pain, rx must last 30 days, # 90 tabs, 0 Refill(s) Start Date: 06/04/15 Status: Ordered omeprazole 20 mg oral delayed release capsule See Instructions, TAKE ONE CAPSULE BY MOUTH DAILY, # 30 caps, 2 Refill(s), eRx: [facility] #[id number], TAKE ONE CAPSULE BY MOUTH DAILY Start Date: 04/14/15 Status: Ordered Premarin 0.3 mg oral tablet See Instructions, TAKE ONE TABLET BY MOUTH EVERY OTHER DAY, # 30 tabs, eRx: [facility] #[id number], TAKE ONE TABLET BY MOUTH EVERY OTHER [...] Procedures Procedure Date Related Diagnosis Body Site Destruction by neurolytic agent, 06/18/15 paravertebral facet joint nerve(s), with imaging guidance (fluoroscopy or CT); cervical or thoracic, single facet joint Left C2-3 Radiofrequency 06/18/15 Left C4-6 Radiofrequency [...]
--- OUTSIDE RECORDS SUMMARY | 2016-11-22 20:09 | XMS REPORT | Referral Summary ---
Author Author [facility] Organization [facility] Address Unknown Phone Unavailable Care Team Providers Care Disintegrator Name Role Phone Marlena Silva Primary Care Physician [phone] Encounter VC Date(s): 05/13/16 - 05/13/16 [facility] [address] [facility] [place], [place] [id number] Discharge Diagnosis: Spinal stenosis in cervical region (disorder) Discharge Diagnosis: Neck pain (finding) Discharge Diagnosis: Degeneration of cervical intervertebral disc (disorder) Discharge Diagnosis: Cervical spondylosis Discharge Diagnosis: Cervicalgia Discharge Diagnosis: Cervical vertebral fusion Discharge Disposition: 01-Home or Self Care Attending Physician: Wayne Regan Admitting Physician: Wayne Regan Vital Signs Most recent to 1 oldest [Reference Range]: Blood Pressure 118/64 mmHg [90-140/60-90 mmHg] (05/13/16 10:34 AM) Problem List Condition Effective Dates Status [...] DAILY, # 90 tabs, 2 Refill(s), eRx: [facility] #[id number], TAKE ONE TABLET BY MOUTH DAILY Start Date: 03/09/16 Status: Ordered Metoprolol Succinate ER 25 mg oral tablet, extended release See Instructions, TAKE ONE TABLET BY MOUTH DAILY, # 30 tabs, 4 Refill(s), eRx: [facility] #[id number], TAKE ONE TABLET BY MOUTH DAILY Start Date: 02/09/16 Status: Ordered Multivitamin Multivitamin, take 1 by oral route every day, 0 Refill(s) Start Date: 02/04/14 Status: Ordered [place] 5 mg-325 mg oral tablet 1 tabs, Oral, q6hr, as needed for pain, rx must last 30 days Needs appt. for next refill., # 90 tabs, 0 Refill(s) Start Date: 07/15/15 Status: Ordered omeprazole 20 mg oral delayed release capsule See Instructions, TAKE ONE CAPSULE BY MOUTH DAILY, # 30 caps, eRx: [facility] #[id number], TAKE ONE CAPSULE BY MOUTH DAILY Start Date: 04/14/16 Status: Ordered Stool softener Stool softener, take [...] Related Diagnosis Body Site Left C2-3 Radiofrequency 01/07/16 Excision of squamous [...] Extracted from: Title: Office Visit Note Author: Wayne Regan Date: 05/13/16 Assessment/Plan Cervical spondylosis Cervical vertebral fusion Cervicalgia, Neck pain (finding) Degeneration of cervical intervertebral disc (disorder) Spinal stenosis in cervical region (disorder) I did discuss this patient's care with Dr. Albright. I did reviewher previous cervical spine MRI results withpostoperative changes at C5 to C7. Mild left facet arthropathyat C2 3. Small disc bulge and facet arthropathy small left C3 4 facet effusion with moderate to severe central canal narrowing and severe left foraminal narrowing at C3 4. C4 5 disc bulging facet arthropathy moderate to severe central canal narrowing and severe bilateral foraminal narrowing. C5 6 mild central canal narrowing and moderate to severe bilateral foraminal narrowing. C6 7 mild to moderate bilateral foraminal narrowing and mild centralstenosis. She really does not describe any significant arm pain or radicular type symptoms. She does feel that she has had improvement with periodic radiofrequency ablations. She recently had a left C2 3 radiofrequency ablation on January 062015 still feels like her symptoms are improved but clinically having some recurring symptoms in the left C4 to 6 joints. Her previous left C4 to 6 radiofrequency ablation was over 6 months ago on 2015 and she would like to have it repeated. Dr. Albright recommend scheduling to repeat her left C4 to 6 radiofrequency ablation. She understands the rationale for the procedure possible complicationsincluding that of neuralgia and she voiced understanding and wishes to proceed. We did discuss she had some lower back painwith previous lumbar spine MRI showing mild disc bulging L5-S1, primary finding at L4 5 there is disc bulging moderate central stenosis and moderate bilateral neuroforaminal narrowing. At this time she does not feel her symptoms are severe enough to proceed with interventional treatments for her lower back. She'll continue home exercises and stretches. She does not desire any surgical interventions atthis timefor her neck her lower back. She was asked to take a new cervical spine flexion-extension x-ray today. She'll follow-up here on an as-needed basis. She voiced understanding and agrees to theabove plan. The above was in discussion with Dr. Albright.
--- OUTSIDE RECORDS SUMMARY | 2016-11-22 20:09 | XMS REPORT | Referral Summary ---
Author Organization Unknown Address Unknown Phone Unavailable Care Team Providers Care Crop Adjuster Name Role Phone Marlena Silva Primary Care Physician [phone] Encounter VC Date(s): 09/26/14 - 09/26/14 [facility] [address] [place], [place] [address] Discharge Diagnosis: Cervical pain Discharge Diagnosis: HEADACHE Discharge Diagnosis: Cervical spondylosis Discharge Disposition: Home or Self Care Attending Physician: Felton Albright MD Admitting Physician: Felton Albright MD Vital Signs Most recent to 1 oldest [Reference Range]: Apical Heart Rate 65 bpm [60-100 bpm] (09/26/14 7:49 AM) Respiratory Rate 14 br/min [14-20 br/min] (09/26/14 7:49 AM) Blood Pressure 143/75 mmHg [90-140/60-90 mmHg] *HI* (09/26/14 7:49 AM) Most recent to 1 oldest [Reference Range]: SpO2 98 % (09/26/14 7:49 AM) Problem List Condition Effective Dates Status Health Status Informant Allergic Active rhinitis(Confirmed) Hay fever(Confirmed) Active Bronchitis(Confirmed Active ) Cervical fusion in Resolved neck(Confirmed) Cervical vertebral Active fusion(Confirmed) Cervical vertebral Active fusion(Confirmed) Cervical Active spondylosis(Confirme d) 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 ) Degeneration of Active lumbar disc(Confirmed) HEADACHE(Confirmed) Active Herpes 2011 Active zoster(Confirmed) IBS (irritable bowel Active syndrome)(Confirmed) Lumbago(Confirmed) Active Lumbosacral Active spondylosis w/o myelopathy(Confirmed ) Neck pain Active (finding)(Confirmed) Osteoarthritis(Confi Resolved rmed) Overweight(Confirmed Active ) Parotidectomy(Confir [...] 0 Refill(s) Start Date: 02/04/14 Status: Ordered Mobic 7.5 mg oral tablet See Instructions, TAKE ONE TABLET BY MOUTH TWICE A DAY, # 60 tabs, 1 Refill(s), eRx: [facility] #[id number], TAKE ONE TABLET BY MOUTH TWICE A DAY Special Instructions: TAKE ONE TABLET BY MOUTH TWICE A DAY Start Date: 07/23/14 Status: Ordered Multivitamin Multivitamin, take 1 by oral route every day, 0 Refill(s) Special Instructions: take 1 by oral route every day Start Date: 02/04/14 Status: Ordered [place] 5 mg-325 mg oral tablet 1 tabs, Oral, q6hr, as needed for pain, # 60 tabs, 0 Refill(s) Start Date: 09/16/14 Status: Ordered omeprazole 20 mg oral delayed release tablet 1 tabs, Oral, Daily, # 30 tabs, 4 Refill(s), Pharmacy: [facility] #[id number] , 1 tabs Oral Daily Start Date: 06/05/14 Status: Ordered Premarin 0.3 mg oral tablet See Instructions, TAKE ONE TABLET BY MOUTH EVERY OTHER DAY, # 30 tabs, 1 Refill( s), eRx: [facility] #[id number], TAKE ONE TABLET BY MOUTH EVERY OTHER DAY Special Instructions: TAKE ONE TABLET BY MOUTH EVERY OTHER DAY Start Date: 09/13/14 Status: Ordered Stool softener Stool softener, take 1 capsule by oral route every day at bedtime as needed, 0 Refill(s) Special Instructions: take 1 capsule by oral route every day at bedtime as needed Start Date: 02/04/14 Status: Ordered Synthroid 100 mcg (0.1 mg) oral tablet See Instructions, TAKE ONE TABLET BY MOUTH EVERY DAY, # 30 tabs, 2 Refill(s), eRx: [facility] #[id number], TAKE ONE TABLET BY MOUTH EVERY DAY Special Instructions: TAKE ONE TABLET BY MOUTH EVERY DAY Start Date: 07/23/14 Status: Ordered Results No data available for this section Immunizations Vaccine Date Refusal Reason hepatitis A adult vaccine 06/23/05 hepatitis A adult vaccine 12/29/04 influenza virus vaccine, live 09/14/13 influenza virus vaccine, live 09/15/12 pneumococcal 23-polyvalent vaccine 07/01/06 pneumococcal 23-polyvalent vaccine 05/26/01 tetanus-diphth toxoids (Td) adult/adol 06/11/03 Procedures Procedure Date Related Diagnosis Body Site Injection(s), diagnostic or therapeutic 09/26/14 agent, paravertebral facet (zygapophyseal) joint (or nerves innervating that joint) with image guidance (fluoroscopy or CT), cervical or thoracic; single level Left C2-3 Medial Branch Block w/Diff 09/26/14 [...]
--- OUTSIDE RECORDS SUMMARY | 2016-11-22 20:09 | XMS REPORT | Referral Summary ---
Author Organization Unknown Address Unknown Phone Unavailable Care Team Providers Care Fabricator Foam Rubber Name Role Phone Marlena Silva Primary Care Physician [phone] Encounter VC Date(s): 09/30/14 - 09/30/14 [facility], [place], [address] [place] [address]- Discharge Diagnosis: Hypothyroid Discharge Diagnosis: Back pain Discharge Disposition: Home or Self Care Attending Physician: Miguel Angel Silva MD Admitting Physician: Miguel Angel Silva MD Vital Signs Most recent to 1 oldest [Reference Range]: Blood Pressure 170/98 mmHg [90-140/60-90 mmHg] *HI* (09/30/14 10:06 AM) Problem List Condition Effective Dates Status [...] 0 Refill(s) Start Date: 02/04/14 Status: Ordered cyclobenzaprine 5 mg oral tablet 1 tabs, Oral, TID, X 10 days, # 30 tabs, 1 Refill(s), Pharmacy: [facility] #[id number], 1 tabs Oral TID,x10 days Start Date: 09/30/14 Stop Date: 10/20/14 Status: Ordered Mobic 7.5 mg oral tablet See Instructions, TAKE ONE TABLET BY MOUTH TWICE A DAY, # 60 tabs, 1 Refill(s), eRx: [facility] #[id number], TAKE ONE TABLET BY MOUTH TWICE A DAY Special Instructions: TAKE ONE TABLET BY MOUTH TWICE A DAY Start Date: 07/23/14 Status: Ordered Multivitamin Multivitamin, take 1 by oral route every day, 0 Refill(s) Special Instructions: take 1 by oral route every day Start Date: 02/04/14 Status: Ordered [place] 5 mg-325 mg oral tablet 1 tabs, Oral, q6hr, as needed for pain, # 60 tabs, 0 Refill(s) Start Date: 09/16/14 Status: Ordered omeprazole 20 mg oral delayed release tablet 1 tabs, Oral, Daily, # 30 tabs, 4 Refill(s), Pharmacy: [facility] #[id number] , 1 tabs Oral Daily Start Date: 06/05/14 Status: Ordered Premarin 0.3 mg oral tablet See Instructions, TAKE ONE TABLET BY MOUTH EVERY OTHER DAY, # 30 tabs, 1 Refill( s), eRx: [facility] #[id number], TAKE ONE TABLET BY MOUTH EVERY OTHER [...] DAY, # 30 tabs, 2 Refill(s), eRx: [facility] #[id number], TAKE ONE TABLET BY MOUTH EVERY DAY [...] Date Related Diagnosis Body Site Left C2-3 Medial Branch Block w/Diff 09/26/14 [...] Education Author: Miguel Angel Silva MD Date: Family Medicine Back Pain, Adult Low back pain is very common. About 1 in 5 people have back pain.The cause of low back pain is rarely dangerous. The pain often gets better over time.About half of people with a sudden onset of back pain feel better in just 2 weeks. About 8 in 10 people feel better by 6 weeks. CAUSES Some common causes of back pain include: Strain of the muscles or ligaments supporting the spine. Wear and tear (degeneration ) of the spinal discs. Arthritis. Direct injury to the back. DIAGNOSIS Most of the time, the direct cause of low back pain is not known.However, back pain can be treated effectively even when the exact cause of the pain is unknown.Answering your caregiver's questions about your overall health and symptoms is one of the most accurate ways to make sure the cause of your pain is not dangerous. If your caregiver needs more information, he or she may order lab work or imaging tests (X-rays or MRIs).However, even if imaging tests show changes in your back, this usually does not require surgery. HOME CARE INSTRUCTIONS For many people, back pain returns.Since low back pain is rarely dangerous, it is often a condition that people can learn to manageon their own. Remain active. It is stressful on the back to sit or bowling alley operator one place. Do not sit, drive, or bowling alley operator one place for more than 30 minutes at a time. Take short walks on level surfaces as soon as pain allows.Try to increase the length of time you walk each day. Do not stay in bed.Resting more than 1 or 2 days can delay your recovery. Do not avoid exercise or work.Your body is made to move.It is not dangerous to be active, even though your back may hurt.Your back will likely heal faster if you return to being active before your pain is gone. Pay attention to your body when you bend and lift. Many people have less discomfortwhen lifting if they bend their knees, keep the load close to their bodies,and avoid twisting. Often, the most comfortable positions are those that put less stress on your recovering back. Find a comfortable position to sleep. Use a firm mattress and lie on your side with your knees slightly bent. If you lie on your back, put a pillow under your knees. Only take ugyd-ilc-lvswqwj or prescription medicines as directed by your caregiver. Dcwx-lzw-uvydwpt medicines to reduce pain and inflammation are often the most helpful.Your caregiver may prescribe muscle relaxant drugs.These medicines help dull your pain so you can more quickly return to your normal activities and healthy exercise. Put ice on the injured area. Put ice in a plastic bag. Place a towel between your skin and the bag. Leave the ice on for 15-20 minutes, 3-4 times a day for the first 2 to 3 days. After that, ice and heat may be alternated to reduce pain and spasms. Ask your caregiver about trying back exercises and gentle massage. This may be of some benefit. Avoid feeling anxious or stressed.Stress increases muscle tension and can worsen back pain.It is important to recognize when you are anxious or stressed and learn ways to manage it.Exercise is a great option. SEEK MEDICAL CARE IF: You have pain that is not relieved with rest or medicine. You have pain that does not improve in 1 week. You have new symptoms. You are generally not feeling well. SEEK IMMEDIATE MEDICAL CARE IF: You have pain that radiates from your back into your legs. You develop new bowel or bladder control problems. You have unusual weakness or numbness in your arms or legs. You develop nausea or vomiting. You develop abdominal pain. You feel faint. Document Released: 08/22/2006 Document Revised: 02/20/2013 Document Reviewed: [facility] Patient Information 2014 [employer]. No follow up information was provided. Extracted from: Title: Office Visit Note Author: Miguel Angel Silva MD Date: 09/30/14 Assessment/Plan Back pain Hot packs and muscle relaxer and Nsaids. She is due for lab. Ordered: Office Visit Level 4 Est 42865 Hypothyroid Ordered: Office Visit Level 4 Est 00168 Orders: cyclobenzaprine, 1 tabs, Oral, TID, X 10 days, # 30 tabs, 1 Refill(s) , Pharmacy: [facility] #[id number], 1 tabs Oral TID,x10 days Comprehensive Metabolic Panel Lipid Panel TSH with Reflex Free T4
--- OUTSIDE RECORDS SUMMARY | 2016-11-22 20:09 | XMS REPORT | Referral Summary ---
Author Author [facility] Organization [facility] Address Unknown Phone Unavailable Care Team Providers Care Sight Mounter Name Role Phone Marlena Silva Primary Care Physician [phone] Encounter VC Date(s): 08/19/15 - 08/19/15 [facility] [address] [facility] [place] [address] Discharge Diagnosis: Spinal stenosis in cervical region (disorder) Discharge Diagnosis: Cervical radiculopathy Discharge Diagnosis: Cervical vertebral fusion Discharge Disposition: 01-Home or Self Care Attending Physician: Felton Albright MD Admitting Physician: Felton Albright MD Vital Signs Most recent to 1 oldest [Reference Range]: Peripheral Pulse 70 bpm Rate [60-100 bpm] (08/19/15 7:41 AM) Respiratory Rate 16 br/min [14-20 br/min] (08/19/15 7:41 AM) Blood Pressure 141/88 mmHg [90-140/60-90 mmHg] *HI* (08/19/15 7:41 AM) SpO2 97 % (08/19/15 7:41 AM) Problem List Condition Effective Dates Status [...] Daily, # 90 tabs, 1 Refill(s), Pharmacy: [facility] #[id number], 1 tabs Oral Daily,x90 days Start Date: 03/25/15 Stop Date: 06/23/15 Status: Ordered Multivitamin Multivitamin, take 1 by oral route every day, 0 Refill(s) Start Date: 02/04/14 Status: Ordered [place] 5 mg-325 mg oral tablet 1 tabs, Oral, q6hr, as needed for pain, rx must last 30 days Needs appt. for next refill., # 90 tabs, 0 Refill(s) Start Date: 07/15/15 Status: Ordered omeprazole 20 mg oral delayed release capsule See Instructions, TAKE ONE CAPSULE BY MOUTH DAILY, # 30 caps, 1 Refill(s), eRx: [facility] #[id number], TAKE ONE CAPSULE BY MOUTH DAILY Start Date: 07/15/15 Status: Ordered Stool softener Stool softener, take [...] Procedure Date Related Diagnosis Body Site Injection(s), anesthetic agent and/or 08/19/15 steroid, transforaminal epidural, with imaging guidance (fluoroscopy or CT); cervical or thoracic, each additional level (List separately in addition to code for primary procedure) Injection(s), anesthetic agent and/or 08/19/15 steroid, transforaminal epidural, with imaging guidance (fluoroscopy or CT); cervical or thoracic, single level Left C3-4/C4-5 Transforaminal 08/19/15 Left C2-3 Radiofrequency [...]
--- OUTSIDE RECORDS SUMMARY | 2016-11-22 20:09 | XMS REPORT | Continuity of Care Document ---
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 Epistaxis - *Acute URI (upper respiratory infection) - *Acute Positional vertigo - *Acute 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 Hyperlipidemia - *Chronic Benign paroxysmal positional vertigo - *Chronic Other seborrheic keratosis - *Chronic Hypothyroidism - *Controlled Swelling, mass, or lump in head and neck - *Chronic Otitis media of right ear - *Acute Generalized headaches - *Chronic Sinusitis - *Chronic Urinary frequency - *Acute Skin lesion of face - *Acute Hypothyroidism - *Chronic Vaginitis - *Acute LUMBOSACRAL SPONDYLOSIS - LUMB/LUMBOSAC DISC DEGEN - SPIN STEN,LUMBR WO LATRICIA - LUMBAGO - LUMBOSACRAL NEURITIS NOS - ACQ SPONDYLOLISTHESIS - Ear discomfort - *Fair Control Sensorineural hearing loss - *Chronic Sinusitis - *Fair Control Parotid mass - *Stable Seborrheic keratosis - *Chronic Solar keratosis - *Chronic Acute bronchitis - *Acute Acute maxillary sinusitis - *Acute Influenza Vaccine - Anxiety and depression - *Acute Abdominal pain - *Chronic Family History Family Member Diagnosis Age At Onset Status Unknown Social History Social History Element Description Quantity Unknown Allergies, Adverse Reactions, Alerts Substance Reaction Severity Status ERYTHROMYCIN BASE Dizziness Unknown PENICILLINS Hives/Skin Rash Unknown SULFA (SULFONAMIDE ANTIBIOTICS) RASH Unknown Medications Medication Instructions Dosage Effective Dates (start - stop) Status MULTIVITAMINS (unknown strength) take 1 by Oral route every day 2011 - Active Premarin 0.3 mg tablet QOD - Active Calcium 600 600 mg (1,500 mg) tablet DAILY - Active Mobic 7.5 mg tablet one [...] Height Weight Pulse Rate Blood Pressure Temperature /15:47:00 62.00 in 140.00 lbs 97.5 F Procedures Procedure Date Unknown Encounters Encounter Location Date Patient Visit [facility] Patient Visit [facility] Patient Visit [facility] Patient Visit [facility] Patient Visit [facility] Patient Visit Patient Visit [facility] Patient Visit [facility] Patient Visit Conversion Patient Visit [facility] Patient Visit [facility] Patient Visit [facility] Patient Visit [facility] Patient Visit [facility] Patient Visit [facility] Advance Directives Directive Effective Date Unknown
--- OUTSIDE RECORDS SUMMARY | 2016-11-22 20:09 | XMS REPORT | Referral Summary ---
Author Author [facility] Organization [facility] Address Unknown Phone Unavailable Care Team Providers Care Sprinkler Worker Name Role Phone Marlena Silva Primary Care Physician [phone] Encounter VC Date(s): 06/05/15 - 06/05/15 [facility] [address] [place] [address] Discharge Diagnosis: Cervicalgia Discharge Diagnosis: Spinal stenosis in cervical region (disorder) Discharge Diagnosis: Other cervical disc degeneration, mid-cervical region Discharge Diagnosis: Cervical vertebral fusion Discharge Diagnosis: Cervical spondylosis Discharge Disposition: 01-Home or Self Care Attending Physician: Katelyn Mejia PA-C Admitting Physician: Katelyn Mejia PA-C Vital Signs Most recent to 1 oldest [Reference Range]: Blood Pressure 110/52 mmHg [90-140/60-90 mmHg] (06/05/15 8:49 AM) Problem List Condition Effective Dates Status [...] BY MOUTH DAILY, # 90 tabs, eRx: [facility] #[id number], TAKE ONE TABLET BY MOUTH DAILY Start Date: 09/22/15 Status: Ordered lisinopril 20 mg oral tablet 20 mg 1 tabs, Oral, Daily, # 30 tabs, 1 Refill(s), Pharmacy: [facility] # [id number] Start Date: 10/27/15 Status: Ordered Multivitamin Multivitamin, take 1 by oral route every day, 0 Refill(s) Start Date: 02/04/14 Status: Ordered Mitchell 5 mg-325 mg oral tablet 1 tabs, Oral, q6hr, as needed for pain, rx must last 30 days Needs appt. for next refill., # 90 tabs, 0 Refill(s) Start Date: 07/15/15 Status: Ordered omeprazole 20 mg oral delayed release capsule See Instructions, TAKE ONE CAPSULE BY MOUTH DAILY, # 30 caps, eRx: [facility] #[id number], TAKE ONE CAPSULE BY MOUTH DAILY Start [...] Visit Note Author: Katelyn Mejia PA-C Date: 06/05/15 Assessment/Plan Cervical spondylosis Cervical vertebral fusion Cervicalgia Other cervical disc degeneration, mid-cervical region Spinal stenosis in cervical region (disorder) I discussed the patient's plan of care with Dr. Albright. I also reviewed the patient's most recent cervical MRI. According to this MRI the patient has postoperative changes with ACDF from C5 to C7. She has multiple levels of facet arthropathywithdegeneration abovethe level of her surgery at C3 4 and C4 5causing some moderate to severespinal stenosis. She is most tender over her left upper cervical facet joints. She has previously had a left C2 3 radiofrequency ablation in October 2014. She most recently had a leftC4 to C6 radiofrequency ablation on April 30, 2015. She does appear to have some minimal radicular complaints. Dr. Albright recommends proceeding with repeating her left C2 3 radiofrequency ablation.The patient does understand the rationale for the procedure as well as possible complications including bleeding, infection, allergic reaction, nerve irritation or damage, and risk of spinal headache. The patient also understands other remote possible [...] understanding and agrees to the above plan. Physical exam findings, history present illness, and recommendations are performed with and in agreement with Dr. Albright's findings.
--- OUTSIDE RECORDS SUMMARY | 2016-11-22 20:09 | XMS REPORT | Referral Summary ---
Author Author [facility], [facility] Medicine Organization [facility] Address Unknown Phone Unavailable Care Team Providers Care Cash Register Operator Name Role Phone Marlena Silva Primary Care Physician [phone] Encounter VC Date(s): 10/16/15 - 10/16/15 [facility] [address] [place] [address] Discharge Disposition: 01-Home or Self Care Attending Physician: Miguel Angel Silva MD Admitting Physician: Miguel Angel Silva MD Vital Signs Most recent to 1 oldest [Reference Range]: Peripheral Pulse 64 bpm Rate [60-100 bpm] (10/16/15 8:31 AM) Blood Pressure 170/92 mmHg [90-140/60-90 mmHg] *HI* (10/16/15 8:31 AM) Problem List Condition Effective Dates Status [...] BY MOUTH DAILY, # 90 tabs, eRx: [facility] #[id number], TAKE ONE TABLET BY MOUTH DAILY Start Date: 09/22/15 Status: Ordered lisinopril 10 mg oral tablet 10 mg 1 tabs, Oral, Daily, # 30 tabs, 2 Refill(s), Pharmacy: [facility] # [id number], 1 tabs Oral Daily Start Date: 10/16/15 Status: Ordered Multivitamin Multivitamin, take 1 by oral route every day, 0 Refill(s) Start Date: 02/04/14 Status: Ordered Hermann 5 mg-325 mg oral tablet 1 tabs, Oral, q6hr, as needed for pain, rx must last 30 days Needs appt. for next refill., # 90 tabs, 0 Refill(s) Start Date: 07/15/15 Status: Ordered omeprazole 20 mg oral delayed release capsule See Instructions, TAKE ONE CAPSULE BY MOUTH DAILY, # 30 caps, eRx: [facility] #[id number], TAKE ONE CAPSULE BY MOUTH DAILY Start Date: 10/14/15 Status: Ordered Stool softener Stool softener, take 1 capsule by oral route every day at bedtime as needed, 0 Refill(s) Start Date: 02/04/14 Status: Ordered Results Chemistry Most recent to 1 oldest [Reference Range]: Sodium Lvl [135-144 141 mEq/L mEq/L] (10/16/15 11:23 AM) Potassium Lvl 3.5 mEq/L [3.5-5.2 mEq/L] (10/16/15 11:23 AM) Chloride [99-111 104 mEq/L mEq/L] (10/16/15) CO2 [22-31 mEq/L] 29 mEq/L (10/16/15) AGAP [3-20] 8 (10/16/15) BUN [10-20 mg/dL] 10 mg/dL (10/16/15) Glucose Lvl [70-99 130 mg/dL mg/dL] *HI* (10/16/15) Creatinine Lvl 0.70 mg/dL [0.57-1.11 mg/dL] (10/16/15) eGFR [>60 mL/min] >60 mL/min 1 (10/16/15) Calcium Lvl 9.9 mg/dL [8.9-10.5 mg/dL] (10/16/15) Albumin Lvl [3.4-4.8 4.2 gm/dL gm/dL] (10/16/15) Total Protein 6.7 gm/dL [6.2-8.1 gm/dL] (10/16/15) Globulin [1.8-4.0 2.5 gm/dL gm/dL] (10/16/15) ALT [0-55 U/L] 14 U/L (10/16/15) AST [5-34 U/L] 18 U/L (10/16/15) Alk Phos [40-150 94 U/L U/L] (10/16/15) Bili Total [0.2-1.2 0.3 mg/dL mg/dL] (10/16/15) Chol [0-199 mg/dL] 195 mg/dL (10/16/15) Trig [0-149 mg/dL] 121 mg/dL (10/16/15) HDL [40-84 mg/dL] 62 mg/dL (10/16/15) LDL [0-130 mg/dL] 109 mg/dL (10/16/15) VLDL Cholesterol 24 mg/dL [0-28 mg/dL] (10/16/15 11:23 AM) Cardiac Risk 3.1 [0.0-5.0] (10/16/15 11:23 AM) TSH with Reflex Free 2.81 T4 [0.35-4.94] (10/16/15 11:23 AM) 1Result Comment: Multiply eGFR results by 1.21 [...] Education Author: Miguel Angel Silva MD Date: 07/21 Family Medicine Hypertension Hypertension is another name for high blood pressure. High blood pressure forces your heart to work harder to pump blood. A blood pressure reading has two numbers, which includes a higher number over a lower number (example: 110/72 ). HOME CARE Have your blood pressure rechecked by your doctor. Only take medicine as told by your doctor. Follow the directions carefully. The medicine does not work as well if you skip doses. Skipping doses also puts you at risk for problems. Do not smoke. Monitor your blood pressure at home as told by your doctor. GET HELP IF: You think you are having a reaction to the medicine you are taking. You have repeat headaches or feel dizzy. You have puffiness (swelling) in your ankles. You have trouble with your vision. GET HELP RIGHT AWAY IF: You get a very bad headache and are confused. You feel weak, numb, or faint. You get chest or belly (abdominal) pain. You throw up (vomit). You cannot breathe very well. MAKE SURE YOU: Understand these instructions. Will watch your condition. Will get help right away if you are not doing well or get worse. This information is not intended to replace advice given to you by your health care provider. Make sure you discuss any questions you have with your health care provider. Document Released: 02/07/2009 Document Revised: 08/27/2014 Document Reviewed: Exit[employer] Patient Information 2015 [employer]. No follow up information was provided. 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
--- OUTSIDE RECORDS SUMMARY | 2016-11-22 20:10 | XMS REPORT | Referral Summary ---
Author Organization Unknown Address Unknown Phone Unavailable Care Team Providers Care Insurance Processor Name Role Phone Marlena Silva Primary Care Physician [phone] Encounter VC Date(s): 10/03/14 - 10/03/14 [facility] 1946 [place], [place] [address] Discharge Diagnosis: Degeneration of cervical intervertebral disc (disorder) Discharge Diagnosis: Neck pain (finding) Discharge Diagnosis: Cervical spondylosis Discharge Diagnosis: Cervical vertebral fusion Discharge Diagnosis: HEADACHE Discharge Diagnosis: Spinal stenosis in cervical region (disorder) Discharge Disposition: Home or Self Care Attending Physician: Marli Petersen Admitting Physician: Marli Petersen Vital Signs Most recent to 1 oldest [Reference Range]: Blood Pressure 130/84 mmHg [90-140/60-90 mmHg] (10/03/14 7:57 AM) Problem List Condition Effective Dates Status [...] days, # 30 tabs, 1 Refill(s), Pharmacy: [facility] #[id number], 1 tabs Oral TID,x10 days Start Date: 09/30/14 Stop Date: 10/20/14 Status: Ordered Mobic 7.5 mg oral tablet See Instructions, TAKE ONE TABLET BY MOUTH TWICE A DAY, # 60 tabs, 1 Refill(s), eRx: [facility] #[id number], TAKE ONE TABLET BY MOUTH TWICE A DAY Special Instructions: TAKE ONE TABLET BY MOUTH TWICE A DAY Start Date: 07/23/14 Status: Ordered Multivitamin Multivitamin, take 1 by oral route every day, 0 Refill(s) Special Instructions: take 1 by oral route every day Start Date: 02/04/14 Status: Ordered Lisbon 5 mg-325 mg oral tablet 1 tabs, Oral, q6hr, as needed for pain, # 60 tabs, 0 Refill(s) Start Date: 09/16/14 Status: Ordered omeprazole 20 mg oral delayed release tablet 1 tabs, Oral, Daily, # 30 tabs, 4 Refill(s), Pharmacy: [facility] #[id number] , 1 tabs Oral Daily Start Date: 06/05/14 Status: Ordered Premarin 0.3 mg oral tablet See Instructions, TAKE ONE TABLET BY MOUTH EVERY OTHER DAY, # 30 tabs, 1 Refill( s), eRx: [facility] #[id number], TAKE ONE TABLET BY MOUTH EVERY OTHER [...] DAY, # 30 tabs, 2 Refill(s), eRx: [facility] #[id number], TAKE ONE TABLET BY MOUTH EVERY DAY [...] Extracted from: Title: Office Visit Note Author: Marli Petersen Date: 10/03/14 Assessment/Plan Cervical spondylosis Cervical vertebral fusion Degeneration of cervical intervertebral disc (disorder) HEADACHE Neck pain (finding) Spinal stenosis in cervical region (disorder) I discussed the patient's care with Dr. Albright. Her shoulder pain as greater than 50 percent improvement following her previous left subacromial bursa injection. She is pleased with the result. She has persisting pain in the left lateral neck higher up. She is primarily tender over the left C2-3 facet joint with increased pain with facet joint loading. She is having headaches because of this pain. She responded well to left C2-3 medial branch blocks twice with 80 percent improvement for 3-4 hours after both of her trials. Dr. Albright feels she is primarily symptomatic from her facet arthrosis at the left C2- 3 level and recommends proceeding with left C2-3 radial frequency ablation. I discussed with the patient the rationale for the procedure, possible complications including transiently elevated blood sugars, bleeding, infection, allergic reaction to medication, nerve irritation or damage, remote risk of spinal headache, paralysis, quadriplegia, paraplegia, embolism, and the patient voiced understanding and wished to proceed. The patient wants to proceed with sedation secondary to anxiety with the procedure and patient request. They understand sedation is not considered medically necessary and their insurance may not cover sedation. She may have a lesser component of pain from the left C4-6 facet joints and we may need to consider repeating this radiofrequency in the future however it is not her primary complaint at this time. She'll follow-up in the clinic in 6 weeks after her injection. She is encouraged to continue home stretches and exercises. Patient voiced understanding and agreed to the above plan. I discussed the patient with the preceptor.
--- OUTSIDE RECORDS SUMMARY | 2016-11-22 20:10 | XMS REPORT | Continuity of Care Document ---
Author Author Merlin Huynh [facility] Ambulatory Address Unknown Phone Unavailable Care Team Providers Care Lockstitch Lining Maker Name Role Phone Miguel Angel Silva PP Unavailable Payers Payer name Insurance type Covered alliance party ID Authorization(s) Unknown Problems Condition Effective Dates (start - stop) Clinical Status Acute maxillary sinusitis - *Acute Acute bronchitis - *Acute Positional vertigo - *Acute URI (upper respiratory infection) - *Acute Epistaxis - *Acute Abdominal pain - *Chronic Anxiety and depression - *Acute Otitis media of right ear - *Acute Influenza Vaccine - Generalized headaches - *Chronic [...] Dosage Effective Dates (start - stop) Status Zithromax Z-Reynaldo 250 mg tablet take 2 tablet (500MG) by oral route every day for 1 day then 1 tablet (250 mg) by oral route once daily for 4 days 500 MG - Active MULTIVITAMINS (unknown strength) take 1 by Oral route every day 2011 - Active Synthroid 125 mcg tablet Take 1 tablet by mouth every day. - Active antipyrine-benzocaine 5.4 %-1.4 % Ear Drops Instill 2-4 drops in affected ear every 1-2 hours prn pain - Active Mobic 7.5 mg tablet take 1 tablet (7.5MG) by oral route 2 times every day 7.5 MG - Active Premarin 0.3 mg tablet QOD - Active Immunizations Vaccine Date Status Comments Flu (split) (3 yrs or older) completed Results Test Name Date and Time Measure Units Reference Range Abnormal Flag Comments Unknown Vital Signs Date / Time: Height Weight Pulse Rate Blood Pressure Temperature /10:55:00 62.00 in 137.00 lbs 70 /min 128/80 mm[Hg] 97.3 F Procedures Procedure Date Unknown Encounters Encounter Location Date Patient Visit [facility] Patient Visit [facility] Patient Visit [facility] Patient Visit [facility] Patient Visit [facility] Patient Visit [facility] Patient Visit [facility] Patient Visit [facility] Patient Visit [facility] Patient Visit [facility] Patient Visit Conversion Patient Visit [facility] ENT Patient Visit [facility] Advance Directives Directive Effective Date Unknown
--- OUTSIDE RECORDS SUMMARY | 2016-11-22 20:10 | XMS REPORT | Referral Summary ---
Author Organization Unknown Address Unknown Phone Unavailable Care Team Providers Care Import Clerk Name Role Phone Marlena Silva Primary Care Physician [phone] Encounter VC Date(s): 10/23/14 - 10/23/14 [facility] [address] [place], [place] [address] Discharge Diagnosis: Cervical pain Discharge Diagnosis: HEADACHE Discharge Diagnosis: Cervical vertebral fusion Discharge Diagnosis: Cervical spondylosis Discharge Disposition: Home or Self Care Attending Physician: Felton Albright MD Admitting Physician: Felton Albright MD Referring Physician: Miguel Angel Silva MD Vital Signs Most recent to 1 oldest [Reference Range]: Peripheral Pulse 69 bpm Rate [60-100 bpm] (10/23/14 8:51 AM) Respiratory Rate 17 br/min [14-20 br/min] (10/23/14 8:51 AM) Blood Pressure 177/89 mmHg [90-140/60-90 mmHg] *HI* (10/23/14 8:51 AM) Most recent to 1 oldest [Reference Range]: SpO2 98 % (10/23/14 8:51 AM) Problem List Condition Effective Dates Status [...] DAY, # 60 tabs, 1 Refill(s), eRx: [facility] #[id number], TAKE ONE TABLET BY MOUTH TWICE A DAY Special Instructions: TAKE ONE TABLET BY MOUTH TWICE A DAY Start Date: 07/23/14 Status: Ordered Multivitamin Multivitamin, take 1 by oral route every day, 0 Refill(s) Special Instructions: take 1 by oral route every day Start Date: 02/04/14 Status: Ordered Lansford 5 mg-325 mg oral tablet 1 tabs, Oral, q6hr, as needed for pain, rx must last 30 days, # 60 tabs, 0 Refill(s) Special Instructions: rx must last 30 days Start Date: 10/14/14 Status: Ordered omeprazole 20 mg oral delayed release tablet 1 tabs, Oral, Daily, # 30 tabs, 4 Refill(s), Pharmacy: [facility] #[id number] , 1 tabs Oral Daily Start Date: 06/05/14 Status: Ordered Premarin 0.3 mg oral tablet See Instructions, TAKE ONE TABLET BY MOUTH EVERY OTHER DAY, # 30 tabs, 1 Refill( s), eRx: [facility] #[id number], TAKE ONE TABLET BY MOUTH EVERY OTHER [...] DAY, # 30 tabs, 2 Refill(s), eRx: [facility] #[id number], TAKE ONE TABLET BY MOUTH EVERY DAY [...] Diagnosis Body Site Destruction by neurolytic agent, 10/23/14 paravertebral facet joint nerve(s), with imaging guidance (fluoroscopy or CT); cervical or thoracic, single facet joint Left C2-3 Radiofrequency 10/23/14 Left C2-3 Medial [...]
--- OUTSIDE RECORDS SUMMARY | 2016-11-22 20:10 | XMS REPORT | Referral Summary ---
Author Author [facility] Organization [facility] Address Unknown Phone Unavailable Care Team Providers Care Driller Multiple Spindle Name Role Phone Marlena Silva Primary Care Physician [phone] Encounter VC Date(s): 05/19/15 - 05/19/15 [facility] 1946 [facility] [place] [address] Discharge Diagnosis: Cervical spondylosis Discharge Diagnosis: Degeneration of cervical intervertebral disc (disorder) Discharge Diagnosis: Spinal stenosis in cervical region (disorder) Discharge Diagnosis: Cervicalgia Discharge Diagnosis: Cervical vertebral fusion Discharge Disposition: 01-Home or Self Care Attending Physician: Wayne Regan Admitting Physician: Wayne Regan Referring Physician: Miguel Angel Silva MD Vital Signs Most recent to 1 oldest [Reference Range]: Blood Pressure 142/88 mmHg [90-140/60-90 mmHg] *HI* (05/19/15 1:19 PM) Problem List Condition Effective Dates Status [...] BY MOUTH DAILY, # 90 tabs, eRx: [facility] #[id number], TAKE ONE TABLET BY MOUTH DAILY Start Date: 09/22/15 Status: Ordered lisinopril 20 mg oral tablet 20 mg 1 tabs, Oral, Daily, # 30 tabs, 1 Refill(s), Pharmacy: [facility] # [id number] Start Date: 10/27/15 Status: Ordered Multivitamin Multivitamin, take 1 by oral route every day, 0 Refill(s) Start Date: 02/04/14 Status: Ordered Crane 5 mg-325 mg oral tablet 1 tabs, Oral, q6hr, as needed for pain, rx must last 30 days Needs appt. for next refill., # 90 tabs, 0 Refill(s) Start Date: 07/15/15 Status: Ordered omeprazole 20 mg oral delayed release capsule See Instructions, TAKE ONE CAPSULE BY MOUTH DAILY, # 30 caps, eRx: [facility] #[id number], TAKE ONE CAPSULE BY MOUTH DAILY Start Date: 11/13/15 Status: Ordered Stool softener Stool softener, take [...] Office Visit Note Author: Wayne Regan Date: 05/19/15 Assessment/Plan Cervical spondylosis Cervical vertebral fusion Cervicalgia Degeneration of cervical intervertebral disc (disorder) Spinal stenosis in cervical region (disorder) I did discuss this patient's care with Dr. Albright. I did review her previous cervical MRI from 12/06/2013. She has had previous cervical surgery at the C5 6 C6 7 levels with thespinal stenosis moderate to severe at C4 5 and and C3-4 with severe left foraminal narrowing at C3 4and severe bilateral foraminal narrowing at C4 5. It did seem like her symptoms have improved following the Medrol Dosepak likely was result of neuralgia following her radiofrequency ablation. If she continues to do well she would just follow-up here on an as- needed basis. We discussed if her symptoms recurred thatcould be potentially coming from her spinal stenosis above where she had her surgery and would recommending getting an updated cervical MRI and x-rays if symptoms recurred. Again at this pointsince her symptoms are improved he will defer this but if she calls back with recurring symptoms plan on getting some new investigations. She has no myelopathic signs at this time. She would follow- up as needed then. She voiced understanding and agrees to the above plans. The above was in discussion with Dr. Albright.
--- OUTSIDE RECORDS SUMMARY | 2016-11-22 20:10 | XMS REPORT | Referral Summary ---
Author Author [facility] Organization [facility] Address Unknown Phone Unavailable Care Team Providers Care Sheet Pile Driver Operator Name Role Phone Marlena Silva Primary Care Physician [phone] Encounter VC Date(s): 06/05/15 - 06/05/15 [facility] 1946 [facility] [place] [email or web address] Discharge Diagnosis: Cervicalgia Discharge Diagnosis: Spinal stenosis [...] Daily, # 90 tabs, 1 Refill(s), Pharmacy: [facility] #[id number], 1 tabs Oral Daily,x90 days Start Date: 03/25/15 Stop Date: 06/23/15 Status: Ordered Mobic 7.5 mg oral tablet See Instructions, TAKE ONE TABLET BY MOUTH TWICE A DAY, # 60 tabs, 1 Refill(s), eRx: [facility] #[id number], TAKE ONE TABLET BY MOUTH TWICE A DAY Start Date: 07/23/14 Status: Ordered Multivitamin Multivitamin, take 1 by oral route every day, 0 Refill(s) Start Date: 02/04/14 Status: Ordered Mantoloking 5 mg-325 mg oral tablet 1 tabs, Oral, q6hr, as needed for pain, rx must last 30 days, # 90 tabs, 0 Refill(s) Start Date: 06/04/15 Status: Ordered omeprazole 20 mg oral delayed release capsule See Instructions, TAKE ONE CAPSULE BY MOUTH DAILY, # 30 caps, 2 Refill(s), eRx: [facility] #[id number], TAKE ONE CAPSULE BY MOUTH DAILY Start Date: 04/14/15 Status: Ordered Premarin 0.3 mg oral tablet See Instructions, TAKE ONE TABLET BY MOUTH EVERY OTHER DAY, # 30 tabs, eRx: [facility] #[id number], TAKE ONE TABLET BY MOUTH EVERY OTHER [...] Related Diagnosis Body Site Left C4-6 Radiofrequency 04/30/15 Left C2-3 Radiofrequency [...]
--- OUTSIDE RECORDS SUMMARY | 2016-11-22 20:10 | XMS REPORT | Referral Summary ---
Author Author [facility] Organization [facility] Address Unknown Phone Unavailable Care Team Providers Care Television Production Clerk Name Role Phone Marlena Silva Primary Care Physician [phone] Encounter VC Date(s): 06/09/16 - 06/09/16 [facility] [address] [place] [id number] Discharge Diagnosis: Cervical vertebral fusion Discharge Diagnosis: Cervical spondylosis Discharge Disposition: 01-Home or Self Care Attending Physician: Felton Albright MD Admitting Physician: Felton Albright MD Vital Signs Most recent to 1 oldest [Reference Range]: Apical Heart Rate 66 bpm [60-100 bpm] (06/09/16 7:43 AM) Respiratory Rate 18 br/min [14-20 br/min] (06/09/16 7:43 AM) Blood Pressure 166/90 mmHg [90-140/60-90 mmHg] *HI* (06/09/16 7:43 AM) SpO2 98 % (06/09/16 7:43 AM) Problem List Condition Effective Dates Status [...] DAILY, # 90 tabs, 2 Refill(s), eRx: [facility] #[id number], TAKE ONE TABLET BY MOUTH DAILY Start Date: 03/09/16 Status: Ordered Metoprolol Succinate ER 25 mg oral tablet, extended release See Instructions, TAKE ONE TABLET BY MOUTH DAILY, # 30 tabs, 4 Refill(s), eRx: [facility] #[id number], TAKE ONE TABLET BY MOUTH DAILY Start Date: 02/09/16 Status: Ordered Multivitamin Multivitamin, take 1 by oral route every day, 0 Refill(s) Start Date: 02/04/14 Status: Ordered [place] 5 mg-325 mg oral tablet 1 tabs, Oral, q6hr, as needed for pain, rx must last 30 days Needs appt. for next refill., # 90 tabs, 0 Refill(s) Start Date: 07/15/15 Status: Ordered omeprazole 20 mg oral delayed release capsule See Instructions, TAKE ONE CAPSULE BY MOUTH DAILY, # 30 caps, eRx: [facility] #[id number], TAKE ONE CAPSULE BY MOUTH DAILY Start Date: 05/17/16 Status: Ordered Stool softener Stool softener, take 1 capsule by oral route every day at bedtime as needed, 0 Refill(s) Start Date: 02/04/14 Status: Ordered Results No data available for this section Immunizations Vaccine Date Refusal Reason tetanus/diphth/pertuss (Tdap) adult/adol 12/30/15 hepatitis A adult vaccine 06/23/05 hepatitis A adult vaccine 12/29/04 influenza virus vaccine, inactivated1 06/04/16 influenza virus vaccine, live 09/14/13 influenza virus vaccine, live 09/15/12 pneumococcal 23-polyvalent vaccine 07/01/06 pneumococcal 23-polyvalent vaccine 05/26/01 tetanus-diphth toxoids (Td) adult/adol 06/11/03 1Location History: [facility] Procedures Procedure Date Related Diagnosis Body Site Destruction by neurolytic agent, 06/09/16 paravertebral facet joint nerve(s), with imaging guidance (fluoroscopy or CT); cervical or thoracic, each additional facet joint (List separately in addition to code for primary procedure).. Destruction by neurolytic agent, 06/09/16 paravertebral facet joint nerve(s), with imaging guidance (fluoroscopy or CT); cervical or thoracic, single facet joint Left C4-6 Radiofrequency 06/09/16 Left C2-3 Radiofrequency [...] obstru bilateral L4-5 Transforaminal 09/29/10 Neck Surgery [id number] Breast Biospy Cataract extraction left Cataract extraction Right Knee Replacement 1Left pretibial surface, margins free of neoplasm. 2ovary sparing Social History Social History Type Response Smoking Status Never smoker Assessment and Plan Extracted from: Title: Ambulatory Patient Education Author: Carie Ferguson RN Date: Procedures Radiofrequency Lesioning Radiofrequency lesioning is a procedure to relieve pain. The procedure is often used for back, neck, or arm pain. Radiofrequency lesioning uses a specialized machine that creates radio waves to make heat. The heat damages the nerve that carries the pain signal. Pain relief usually lasts 6 months to 1 year. LET YOUR CAREGIVER KNOW ABOUT: Allergies to food or medicine. Medicines taken, including vitamins, herbs, eyedrops, qtrm-kwh-adggnfa medicines, and creams. Use of steroids (by mouth or creams). Previous problems with anesthetics or numbing medicines. History of bleeding problems or blood clots. Previous surgery. Other health problems, including diabetes and kidney problems. Possibility of , if this applies. Breathing problems and smoking history. Any recent colds or infections. RISKS AND COMPLICATIONS This procedure is generally safe. The risks and complications depend on what treatment site is used. General complications may include: Pain or soreness at the injection site. Infection at the injection site. Damage to nerves or blood vessels. BEFORE THE PROCEDURE Ask your caregiver about changing or stopping any medicines you are on before the procedure. If you take blood thinners, ask if you should stop taking them before the procedure. You may be asked to wash with an antibiotic soap before the procedure. Do not eat or drink for 8 hours before your procedure or as told by your caregiver. Ask your caregiver what time you need to arrive for your procedure. This is an outpatient procedure. This means you will be able to go home the same day. Make plans for someone to drive you home. PROCEDURE You will be awake during the procedure. You need to be able to talk to the surgeon during the procedure. However, you might be given medicine to help you relax (sedative). Medicine to numb the area (local anesthetic) will be injected. With the help of a type of X-ray (fluoroscopy), a radio frequency needle will be inserted into the area to be treated. Then, a wire that carries the radio waves (electrode) will be put through the radio frequency needle. An electrical pulse will be sent through the electrode to verify the correct nerve. You will feel a tingling sensation similar to hitting your "funny bone." You may also have muscle twitching. The tissue around the needle tip is then heated when electric current is passed using the radio frequency machine. This numbs the nerves. A bandage (dressing) will be put on the area after the procedure is done. AFTER THE PROCEDURE You will stay in a recovery area until you are awake enough to eat and drink. Once everything is back to normal, you will be able to go home. You will need to arrange for someone to drive you home if you received a sedative or pain relieving medicine during the procedure. This information is not intended to replace advice given to you by your health care provider. Make sure you discuss any questions you have with your health care provider. Document Released: 04/19/2012 Document Revised: 11/13/2012 Document Reviewed: [facility] Patient Information 2016 [employer], [facility]. No follow up information was provided.
--- OUTSIDE RECORDS SUMMARY | 2016-11-22 20:10 | XMS REPORT | Referral Summary ---
Author Author [facility] Organization [facility] Address Unknown Phone Unavailable Care Team Providers Care Lunchroom Supervisor Name Role Phone Marlena Silva Primary Care Physician [phone] Encounter VC Date(s): 01/07/16 - 01/07/16 [facility] [address] [facility] [place] [address] Discharge Diagnosis: Cervical spondylosis Discharge Diagnosis: Cervicogenic headache Discharge Diagnosis: Cervical vertebral fusion Discharge Disposition: 01-Home or Self Care Attending Physician: Felton Albright MD Admitting Physician: Felton Albright MD Vital Signs Most recent to 1 oldest [Reference Range]: Apical Heart Rate 68 bpm [60-100 bpm] (01/07/16 7:37 AM) Respiratory Rate 16 br/min [14-20 br/min] (01/07/16 7:37 AM) Blood Pressure 146/87 mmHg [90-140/60-90 mmHg] *HI* (01/07/16 7:37 AM) SpO2 99 % (01/07/16 7:37 AM) Problem List Condition Effective Dates Status [...] MOUTH DAILY, # 90 tabs, eRx: [facility] #[id number], TAKE ONE TABLET BY MOUTH DAILY Start Date: 12/19/15 Status: Ordered metoprolol succinate 25 mg oral tablet, extended release 25 mg 1 tabs, Oral, Daily, # 30 tabs, 0 Refill(s), Pharmacy: [facility] # [id number] Start Date: 12/17/15 Status: Ordered Multivitamin Multivitamin, take 1 by oral route every day, 0 Refill(s) Start Date: 02/04/14 Status: Ordered [place] 5 mg-325 mg oral tablet 1 tabs, Oral, q6hr, as needed for pain, rx must last 30 days Needs appt. for next refill., # 90 tabs, 0 Refill(s) Start Date: 07/15/15 Status: Ordered omeprazole 20 mg oral delayed release capsule See Instructions, TAKE ONE CAPSULE BY MOUTH DAILY, # 30 caps, eRx: [facility] #[id number], TAKE ONE CAPSULE BY MOUTH DAILY Start [...] Diagnosis Body Site Destruction by neurolytic agent, 01/07/16 paravertebral facet joint nerve(s), with imaging guidance (fluoroscopy or CT); cervical or thoracic, single facet joint Left C2-3 Radiofrequency 01/07/16 Left C4-6 Radiofrequency 11/05/15 Left C3-4/C4-5 Transforaminal [...]
--- OUTSIDE RECORDS SUMMARY | 2016-11-22 20:10 | XMS REPORT | Referral Summary ---
Author Author [facility] Organization [facility] Address Unknown Phone Unavailable Care Team Providers Care Cooker Sulfate Name Role Phone Marlena Silva Primary Care Physician [phone] Encounter VC Date(s): 04/17/15 - 04/17/15 [facility] 1946 [facility] [place] [id number] Discharge Diagnosis: Cervical spondylosis Discharge Diagnosis: Degeneration of cervical intervertebral disc (disorder) Discharge Diagnosis: Spinal stenosis in cervical region (disorder) Discharge Diagnosis: Cervical vertebral fusion Discharge Disposition: 01-Home or Self Care Attending Physician: Wayne Regan Admitting Physician: Wayne Regan Referring Physician: Miguel Angel Silva MD Vital Signs Most recent to 1 oldest [Reference Range]: Blood Pressure 118/72 mmHg [90-140/60-90 mmHg] (04/17/15 2:12 PM) Problem List Condition Effective Dates Status [...] BY MOUTH DAILY, # 90 tabs, eRx: [facility] #[id number], TAKE ONE TABLET BY MOUTH DAILY Start Date: 09/22/15 Status: Ordered lisinopril 20 mg oral tablet 20 mg 1 tabs, Oral, Daily, # 30 tabs, 1 Refill(s), Pharmacy: [facility] # [id number] Start Date: 10/27/15 Status: Ordered Multivitamin Multivitamin, take 1 by oral route every day, 0 Refill(s) Start Date: 02/04/14 Status: Ordered [place] 5 mg-325 mg oral tablet 1 tabs, Oral, q6hr, as needed for pain, rx must last 30 days Needs appt. for next refill., # 90 tabs, 0 Refill(s) Start Date: 07/15/15 Status: Ordered omeprazole 20 mg oral delayed release capsule See Instructions, TAKE ONE CAPSULE BY MOUTH DAILY, # 30 caps, eRx: [facility] #[id number], TAKE ONE CAPSULE BY MOUTH DAILY Start [...] Office Visit Note Author: Wayne Regan Date: 04/17/15 Assessment/Plan Cervical spondylosis Cervical vertebral fusion Degeneration of cervical intervertebral disc (disorder) Spinal stenosis in cervical region (disorder) I discussed this patient's care with Dr. Albright. I did review with Dr. Albright her last cervical MRI from 12/06/2013. She's had postoperative changes with adjacent level disc bulges facet arthropathy and foraminal narrowing although she also spondylitic changes and a predominant component of her pain appears the mechanical in nature from her cervical facet joints on the left from C4 to 6. She has benefited from a previous left C4 to 6 radiofrequency ablation and ithasbeen over a year since she had this done. She would like to have it repeated. Dr. Albright recommends repeating her left C4 to 6 radiofrequency ablation. She understands the rationale for the procedure possible complications including that of neuralgia and she voiced understanding wishes to proceed. She would like to proceed with sedation. She understands is no guarantee on insurance coverage of sedation. We did discuss she may have some pain from her left shoulder joint and if her shoulder pain persisted may need to consider further treatment of this. Shedid not appear to describe a lot of radiculopathy at this time although it if she had radicular symptoms in the future may need to consider repeating epidurals at some point again if her symptoms worsen in that regard. She will continue home exercises and stretches. She'll follow-up here in a few months following her radiofrequency ablation sooner if needed. She voiced understanding and agrees to the above plans. The above was in discussion with Dr. Albright.
--- OUTSIDE RECORDS SUMMARY | 2016-11-22 20:10 | XMS REPORT | Referral Summary ---
Author Author [facility] Organization [facility] Address Unknown Phone Unavailable Care Team Providers Care Lpn Rn Hospice Name Role Phone Marlena Silva Primary Care Physician [phone] Encounter VC Date(s): 11/05/15 - 11/05/15 [facility] 1946 [facility] [place] [address] Discharge Diagnosis: Cervical vertebral fusion Discharge Diagnosis: Cervical spondylosis Discharge Disposition: 01-Home or Self Care Attending Physician: Felton Albright MD Admitting Physician: Felton Albright MD Referring Physician: Miguel Angel Silva MD Vital Signs Most recent to 1 oldest [Reference Range]: Peripheral Pulse 64 bpm Rate [60-100 bpm] (11/05/15 10:33 AM) Respiratory Rate 16 br/min [14-20 br/min] (11/05/15 10:33 AM) Blood Pressure 151/101 mmHg [90-140/60-90 mmHg] *HI* (11/05/15 10:33 AM) SpO2 95 % (11/05/15 10:33 AM) Problem List Condition Effective Dates Status [...] BY MOUTH DAILY, # 90 tabs, eRx: [facility] #[id number], TAKE ONE TABLET BY MOUTH DAILY Start Date: 09/22/15 Status: Ordered lisinopril 20 mg oral tablet 20 mg 1 tabs, Oral, Daily, # 30 tabs, 1 Refill(s), Pharmacy: [facility] # [id number] Start Date: 10/27/15 Status: Ordered Multivitamin Multivitamin, take 1 by oral route every day, 0 Refill(s) Start Date: 02/04/14 Status: Ordered [place] 5 mg-325 mg oral tablet 1 tabs, Oral, q6hr, as needed for pain, rx must last 30 days Needs appt. for next refill., # 90 tabs, 0 Refill(s) Start Date: 07/15/15 Status: Ordered omeprazole 20 mg oral delayed release capsule See Instructions, TAKE ONE CAPSULE BY MOUTH DAILY, # 30 caps, eRx: [facility] #[id number], TAKE ONE CAPSULE BY MOUTH DAILY Start [...] Diagnosis Body Site Destruction by neurolytic agent, 11/05/15 paravertebral facet joint nerve(s), with imaging guidance (fluoroscopy or CT); cervical or thoracic, each additional facet joint (List separately in addition to code for primary procedure).. Destruction by neurolytic agent, 11/05/15 paravertebral facet joint nerve(s), with imaging guidance (fluoroscopy or CT); cervical or thoracic, single facet joint Left C4-6 Radiofrequency 11/05/15 Left C3-4/C4-5 Transforaminal [...]
--- OUTSIDE RECORDS SUMMARY | 2016-11-22 20:10 | XMS REPORT | Referral Summary ---
Author Author [facility] Organization [facility] Address Unknown Phone Unavailable Care Team Providers Care Stoneworker Name Role Phone Marlena Silva Primary Care Physician [phone] Encounter VC Date(s): 02/04/16 - 02/04/16 [facility] [address] [place] [address] [place] [address]- Discharge Diagnosis: Postoperative stitch abscess Discharge Disposition: 01-Home or Self Care Attending Physician: Prieto Montoya MD Admitting Physician: Prieto Montoya MD Referring Physician: Miguel Angel Silva MD Vital Signs Most recent to 1 oldest [Reference Range]: Temperature Tympanic 36.9 degC [36.6-38.1 degC] (02/04/16 9:49 AM) Problem List Condition Effective Dates Status [...] 0 Refill(s) Start Date: 02/04/14 Status: Ordered Cipro 500 mg oral tablet 500 mg 1 tabs, Oral, q12hr, X 10 days, # 20 tabs, 0 Refill(s), Pharmacy: [facility] #[id number], 1 tabs Oral q12hr,x10 days Start Date: 01/26/16 Stop Date: 02/05/16 Status: Ordered levothyroxine 100 mcg (0.1 mg) oral tablet See Instructions, TAKE ONE TABLET BY MOUTH DAILY, # 90 tabs, eRx: [facility] #[id number], TAKE ONE TABLET BY MOUTH DAILY Start Date: 12/19/15 Status: Ordered Metoprolol Succinate ER 25 mg oral tablet, extended release See Instructions, TAKE ONE TABLET BY MOUTH DAILY, # 30 tabs, eRx: [facility] #[id number], TAKE ONE TABLET BY MOUTH DAILY Start Date: 01/12/16 Status: Ordered Multivitamin Multivitamin, take 1 by oral route every day, 0 Refill(s) Start Date: 02/04/14 Status: Ordered [place] 5 mg-325 mg oral tablet 1 tabs, Oral, q6hr, as needed for pain, rx must last 30 days Needs appt. for next refill., # 90 tabs, 0 Refill(s) Start Date: 07/15/15 Status: Ordered omeprazole 20 mg oral delayed release capsule See Instructions, TAKE ONE CAPSULE BY MOUTH DAILY, # 30 caps, eRx: [facility] #[id number], TAKE ONE CAPSULE BY MOUTH DAILY Start Date: 01/12/16 Status: Ordered Stool softener Stool softener, take [...] Extracted from: Title: Ambulatory Patient Education Author: Jadyn Bunch QUALITY CONTROL ASSISTANT Date : 02/04/16 Surgery Surgical Site Infections FAQs What is a Surgical Site Infection (SSI)? A surgical site infection is an infection that occurs after surgery in the part of the body where the surgery took place. Most patients who have surgery do not develop an infection. However, infections develop in about 1 to 3 out of every 100 patients who have surgery. Some of the common symptoms of a surgical site infection are: Redness and pain around the area where you had surgery Drainage of cloudy fluid from your surgical wound Fever Can SSIs be treated? Yes. Most surgical site infections can be treated with antibiotics. The antibiotic given to you depends on the bacteria (germs) causing the infection. Sometimes patients with SSIs also need another surgery to treat the infection. What are some of the things that hospitals are doing to prevent SSIs? To prevent SSIs, doctors, nurses, and other healthcare providers: Clean their hands and arms up to their elbows with an antiseptic agent just before the surgery. Clean their hands with soap and water or an alcohol-based hand rub before and after caring for each patient. May remove some of your hair immediately before your surgery using electric clippers if the hair is in the same area where the procedure will occur. They should not shave you with a razor. Wear special hair covers, masks, gowns, and gloves during surgery to keep the surgery area clean. Give you antibiotics before your surgery starts. In most cases, you should get antibiotics within 60 minutes before the surgery starts and the antibiotics should be stopped within 24 hours after surgery. Clean the skin at the site of your surgery with a special soap that kills germs. What can I do to help prevent SSIs? Before your surgery: Tell your doctor about other medical problems you may have. Health problems such as allergies, diabetes, and obesity could affect your surgery and your treatment. Quit smoking. Patients who smoke get more infections. Talk to your doctor about how you can quit before your surgery. Do not shave near where you will have surgery. Shaving with a razor can irritate your skin and make it easier to develop an infection. At the time of your surgery: Speak up if someone tries to shave you with a razor before surgery. Ask why you need to be shaved and talk with your surgeon if you have any concerns. Ask if you will get antibiotics before surgery. After your surgery: Make sure that your healthcare providers clean their hands before examining you, either with soap and water or an alcohol-based hand rub. If you do not see your providers clean their hands, please ask them to do so. Family and friends who visit you should not touch the surgical wound or dressings. Family and friends should clean their hands with soap and water or an alcohol-based hand rub before and after visiting you. If you do not see them clean their hands, ask them to clean their hands. What do I need to do when I go home from the hospital? Before you go home, your doctor or nurse should explain everything you need to know about taking care of your wound. Make sure you understand how to care for your wound before you leave the hospital. Always clean your hands before and after caring for your wound. Before you go home, make sure you know who to contact if you have questions or problems after you get home. If you have any symptoms of an infection, such as redness and pain at the surgery site, drainage, or fever, call your doctor immediately. If you have additional questions, please ask your doctor or nurse. Developed and co-sponsored by The Society for Healthcare Epidemiology of [place] (AGUIAR); Infectious Diseases Society of [place] (IDSA); [employer]; Association for Professionals in Infection Control and Epidemiology (APIC); Centers for Disease Control and Prevention (CDC); and The Joint Commission. This information is not intended to replace advice given to you by your health care provider. Make sure you discuss any questions you have with your health care provider. Document Released: 08/27/2014 Document Revised: 06/10/2015 Document Reviewed: [employer] Patient Information 2015 [employer] No follow up information was provided. Extracted from: Title: Office Visit Note Author: Jadyn Bunch APRN Date: 02/04/16
--- OUTSIDE RECORDS SUMMARY | 2016-11-22 20:11 | XMS REPORT | Referral Summary ---
Author Author [facility] Organization [facility] Address Unknown Phone Unavailable Care Team Providers Care Forensic Psychologist Name Role Phone Marlena Silva Primary Care Physician [phone] Encounter VC Date(s): 04/30/15 - 04/30/15 [facility] 1946 [facility] [place] [id number] Discharge Diagnosis: Cervical pain Discharge Diagnosis: Cervical spondylosis Discharge Diagnosis: Cervical vertebral fusion Discharge Disposition: 01-Home or Self Care Attending Physician: Felton Albright MD Admitting Physician: Felton Albright MD Referring Physician: Miguel Angel Silva MD Vital Signs Most recent to 1 oldest [Reference Range]: Peripheral Pulse 67 bpm Rate [60-100 bpm] (04/30/15 1:38 PM) Respiratory Rate 14 br/min [14-20 br/min] (04/30/15 1:38 PM) Blood Pressure 141/93 mmHg [90-140/60-90 mmHg] *HI* (04/30/15 1:38 PM) SpO2 97 % (04/30/15 1:38 PM) Problem List Condition Effective Dates Status [...] MOUTH DAILY, # 90 tabs, eRx: [facility] #[id number], TAKE ONE TABLET BY MOUTH DAILY Start Date: 09/22/15 Status: Ordered lisinopril 20 mg oral tablet 20 mg 1 tabs, Oral, Daily, # 30 tabs, 1 Refill(s), Pharmacy: [facility] # [id number] Start Date: 10/27/15 Status: Ordered Multivitamin Multivitamin, take 1 by oral route every day, 0 Refill(s) Start Date: 02/04/14 Status: Ordered [place] 5 mg-325 mg oral tablet 1 tabs, Oral, q6hr, as needed for pain, rx must last 30 days Needs appt. for next refill., # 90 tabs, 0 Refill(s) Start Date: 07/15/15 Status: Ordered omeprazole 20 mg oral delayed release capsule See Instructions, TAKE ONE CAPSULE BY MOUTH DAILY, # 30 caps, eRx: [facility] #[id number], TAKE ONE CAPSULE BY MOUTH DAILY Start [...] C3-4/C4-5 Transforaminal 08/19/15 Left C2-3 Radiofrequency 06/18/15 Destruction by neurolytic agent, 04/30/15 paravertebral facet joint nerve(s), with imaging guidance (fluoroscopy or CT); cervical or thoracic, each additional facet joint (List separately in addition to code for primary procedure).. Destruction by neurolytic agent, 04/30/15 paravertebral facet joint nerve(s), with imaging guidance (fluoroscopy or CT); cervical or thoracic, single facet joint Left C4-6 Radiofrequency 04/30/15 Left C2-3 Radiofrequency [...]
--- OUTSIDE RECORDS SUMMARY | 2016-11-22 20:11 | XMS REPORT | Referral Summary ---
Author Author [facility] [place], [facility] Organization [facility] Address Unknown Phone Unavailable Care Team Providers Care Smart Grid Engineer Name Role Phone Marlena Silva Primary Care Physician [phone] Encounter VC Date(s): 07/02/16 - 07/02/16 [facility] [place], [address] [place] [address] Discharge Diagnosis: Acute URI Discharge Disposition: 01-Home or Self Care Attending Physician: Miguel Angel Silva MD Admitting Physician: Miguel Agnel Silva MD Vital Signs Most recent to 1 oldest [Reference Range]: Peripheral Pulse 62 bpm Rate [60-100 bpm] (07/02/16 11:25 AM) Blood Pressure 128/82 mmHg [90-140/60-90 mmHg] (07/02/16 11:25 AM) SpO2 93 % (07/02/16 11:25 AM) Problem List Condition Effective Dates Status [...] 0 Refill(s) Start Date: 02/04/14 Status: Ordered cefdinir 300 mg oral capsule 300 mg 1 caps, Oral, q12hr, X 10 days, # 20 caps, 0 Refill(s), Pharmacy: [facility] #[id number], 1 caps Oral q12hr,x10 days Start Date: 07/02/16 Stop Date: 07/12/16 Status: Ordered levothyroxine 100 mcg (0.1 mg) oral tablet See Instructions, TAKE ONE TABLET BY MOUTH DAILY, # 90 tabs, 2 Refill(s), eRx: [facility] #[id number], TAKE ONE TABLET BY MOUTH DAILY Start Date: 03/09/16 Status: Ordered Metoprolol Succinate ER 25 mg oral tablet, extended release See Instructions, TAKE ONE TABLET BY MOUTH DAILY, # 30 tabs, 4 Refill(s), eRx: [facility] #[id number], TAKE ONE TABLET BY MOUTH DAILY Start Date: 02/09/16 Status: Ordered Multivitamin Multivitamin, take 1 by oral route every day, 0 Refill(s) Start Date: 02/04/14 Status: Ordered omeprazole 20 mg oral delayed release capsule See Instructions, TAKE ONE CAPSULE BY MOUTH DAILY, # 30 caps, eRx: [facility] #[id number], TAKE ONE CAPSULE BY MOUTH DAILY Start Date: 06/28/16 Status: Ordered Results No data available for this section Immunizations Vaccine Date Refusal Reason tetanus/diphth/pertuss (Tdap) adult/adol 12/30/15 hepatitis A adult vaccine 06/23/05 hepatitis A adult vaccine 12/29/04 influenza virus vaccine, inactivated1 06/04/16 influenza virus vaccine, live 1/10/14 influenza virus vaccine, live 09/15/12 pneumococcal 23-polyvalent vaccine 07/01/06 pneumococcal 23-polyvalent vaccine 05/26/01 tetanus-diphth toxoids (Td) adult/adol 06/11/03 1Location History: [place] Procedures Procedure Date Related Diagnosis Body Site [...] bilateral L4-5 Transforaminal 09/29/10 Neck Surgery 2004 Hysterectomy2 1976 Breast Biospy Cataract extraction left Cataract extraction Right Knee Replacement 1Left pretibial surface, margins free of neoplasm. 2ovary sparing Social History Social History Type Response Smoking Status Never smoker Assessment and Plan Extracted from: Title: Ambulatory Patient Education Author: Miguel Angel Silva MD Date: ENT Pharyngitis Pharyngitis is redness, pain, and swelling (inflammation) of your pharynx. CAUSES Pharyngitis is usually caused by infection. Most of the time, these infections are from viruses (viral) and are part of a cold. However, sometimes pharyngitis is caused by bacteria (bacterial). Pharyngitis can also be caused by allergies. Viral pharyngitis may be spread from person to person by coughing, sneezing, and personal items or utensils (cups, forks, spoons, toothbrushes). Bacterial pharyngitis may be spread from person to person by more intimate contact, such as kissing. SIGNS AND SYMPTOMS Symptoms of pharyngitis include: Sore throat. Tiredness (fatigue). Low-grade fever. Headache. Joint pain and muscle aches. Skin rashes. Swollen lymph nodes. Plaque-like film on throat or tonsils (often seen with bacterial pharyngitis). DIAGNOSIS Your health care provider will ask you questions about your illness and your symptoms. Your medical history, along with a physical exam, is often all that is needed to diagnose pharyngitis. Sometimes, a rapid strep test is done. Other lab tests may also be done, depending on the suspected cause. TREATMENT Viral pharyngitis will usually get better in 34 days without the use of medicine. Bacterial pharyngitis is treated with medicines that kill germs ( antibiotics). HOME CARE INSTRUCTIONS Drink enough water and fluids to keep your urine clear or pale yellow. Only take nurv-cqd-rbradhz or prescription medicines as directed by your health care provider: If you are prescribed antibiotics, make sure you finish them even if you start to feel better. Do not take aspirin. Get lots of rest. Gargle with 8 oz of salt water ( tsp of salt per 1 qt of water) as often as every 12 hours to soothe your throat. Throat lozenges (if you are not at risk for choking) or sprays may be used to soothe your throat. SEEK MEDICAL CARE IF: You have large, tender lumps in your neck. You have a rash. You cough up green, yellow-brown, or bloody spit. SEEK IMMEDIATE MEDICAL CARE IF: Your neck becomes stiff. You drool or are unable to swallow liquids. You vomit or are unable to keep medicines or liquids down. You have severe pain that does not go away with the use of recommended medicines. You have trouble breathing (not caused by a stuffy nose). MAKE SURE YOU: Understand these instructions. Will watch your condition. Will get help right away if you are not doing well or get worse. This information is not intended to replace advice given to you by your health care provider. Make sure you discuss any questions you have with your health care provider. Document Released: 08/22/2006 Document Revised: 06/12/2014 Document Reviewed: [employer] Patient Education 2016 [employer] Emergency Medicine Upper Respiratory Infection, Adult Most upper respiratory infections (URIs) are a viral infection of the air passages leading to the lungs. A URI affects the nose, throat, and upper air passages. The most common type of URI is nasopharyngitis and is typically referred to as "the common cold." URIs run their course and usually go away on their own. Most of the time, a URI does not require medical attention, but sometimes a bacterial infection in the upper airways can follow a viral infection. This is called a secondary infection. Sinus and middle ear infections are common types of secondary upper respiratory infections. Bacterial pneumonia can also complicate a URI. A URI can worsen asthma and chronic obstructive pulmonary disease (COPD). Sometimes, these complications can require emergency medical care and may be life threatening. CAUSES Almost all URIs are caused by viruses. A virus is a type of germ and can spread from one person to another. RISKS FACTORS You may be at risk for a URI if: You smoke. You have chronic heart or lung disease. You have a weakened defense (immune) system. You are very young or very old. You have nasal allergies or asthma. You work in crowded or poorly ventilated areas. You work in health care facilities or schools. SIGNS AND SYMPTOMS Symptoms typically develop 23 days after you come in contact with a cold virus. Most viral URIs last 710 days. However, viral URIs from the influenza virus (flu virus) can last 1418 days and are typically more severe. Symptoms may include: Runny or stuffy (congested) nose. Sneezing. Cough. Sore throat. Headache. Fatigue. Fever. Loss of appetite. Pain in your forehead, behind your eyes, and over your cheekbones (sinus pain). Muscle aches. DIAGNOSIS Your health care provider may diagnose a URI by: Physical exam. Tests to check that your symptoms are not due to another condition such as: Strep throat. Sinusitis. Pneumonia. Asthma. TREATMENT A URI goes away on its own with time. It cannot be cured with medicines, but medicines may be prescribed or recommended to relieve symptoms. Medicines may help: Reduce your fever. Reduce your cough. Relieve nasal congestion. HOME CARE INSTRUCTIONS Take medicines only as directed by your health care provider. Gargle warm saltwater or take cough drops to comfort your throat as directed by your health care provider. Use a warm mist humidifier or inhale steam from a shower to increase air moisture. This may make it easier to breathe. Drink enough fluid to keep your urine clear or pale yellow. Eat soups and other clear broths and maintain good nutrition. Rest as needed. Return to work when your temperature has returned to normal or as your health care provider advises. You may need to stay home longer to avoid infecting others. You can also use a face mask and careful hand washing to prevent spread of the virus. Increase the usage of your inhaler if you have asthma. Do not use any tobacco products, including cigarettes, chewing tobacco, or electronic cigarettes. If you need help quitting, ask your health care provider. PREVENTION The best way to protect yourself from getting a cold is to practice good hygiene. Avoid oral or hand contact with people with cold symptoms. Wash your hands often if contact occurs. There is no clear evidence that vitamin C, vitamin E, echinacea, or exercise reduces the chance of developing a cold. However, it is always recommended to get plenty of rest, exercise, and practice good nutrition. SEEK MEDICAL CARE IF: You are getting worse rather than better. Your symptoms are not controlled by medicine. You have chills. You have worsening shortness of breath. You have brown or red mucus. You have yellow or brown nasal discharge. You have pain in your face, especially when you bend forward. You have a fever. You have swollen neck glands. You have pain while swallowing. You have white areas in the back of your throat. SEEK IMMEDIATE MEDICAL CARE IF: You have severe or persistent: Headache. Ear pain. Sinus pain. Chest pain. You have chronic lung disease and any of the following: Wheezing. Prolonged cough. Coughing up blood. A change in your usual mucus. You have a stiff neck. You have changes in your: Vision. Hearing. Thinking. Mood. MAKE SURE YOU: Understand these instructions. Will watch your condition. Will get help right away if you are not doing well or get worse. This information is not intended to replace advice given to you by your health care provider. Make sure you discuss any questions you have with your health care provider. Document Released: 02/15/2002 Document Revised: 01/06/2016 Document Reviewed: [employer] Patient Education 2016 [employer] No follow up information was provided. Extracted from: Title: Office Visit Note Author: Miguel Angel Silva MD Date: 07/02/16 Assessment/Plan 1.Acute URI Rx for Omnicef 300mg bid. Continue with OTC meds for cough Ordered: Office Visit Level 3 Est 17298
--- OUTSIDE RECORDS SUMMARY | 2016-11-22 20:11 | XMS REPORT | Referral Summary ---
Author Organization Unknown Address Unknown Phone Unavailable Care Team Providers Care Deputy Clerk Of Superior Court Name Role Phone Marlena Silva Primary Care Physician [phone] Encounter VC Date(s): 11/11/14 - 11/11/14 [facility], [facility] [address] [place], [place] [address] Discharge Diagnosis: Cervical spondylosis Discharge Diagnosis: Neck pain (finding) Discharge Diagnosis: Spondylolisthesis l4-5, l5-S1 Discharge Diagnosis: Thoracic or lumbosacral neuritis or radiculitis, unspecified Discharge Diagnosis: Cervical vertebral fusion Discharge Diagnosis: Degeneration of cervical intervertebral disc (disorder) Discharge Diagnosis: HEADACHE Discharge Disposition: Home or Self Care Attending Physician: Cindy Simmons APRN Admitting Physician: Cindy Simmons APRN Referring Physician: Miguel Angel Silva MD Vital Signs Most recent to 1 oldest [Reference Range]: Blood Pressure 134/84 mmHg [90-140/60-90 mmHg] (11/11/14 12:52 PM) Problem List Condition Effective Dates Status [...] DAY, # 60 tabs, 1 Refill(s), eRx: [facility] #[id number], TAKE ONE TABLET BY MOUTH TWICE A DAY Special Instructions: TAKE ONE TABLET BY MOUTH TWICE A DAY Start Date: 07/23/14 Status: Ordered Multivitamin Multivitamin, take 1 by oral route every day, 0 Refill(s) Special Instructions: take 1 by oral route every day Start Date: 02/04/14 Status: Ordered [place] 5 mg-325 mg oral tablet 1 tabs, Oral, q6hr, as needed for pain, rx must last 30 days, # 60 tabs, 0 Refill(s) Special Instructions: rx must last 30 days Start Date: 10/14/14 Status: Ordered omeprazole 20 mg oral delayed release tablet 1 tabs, Oral, Daily, # 30 tabs, 4 Refill(s), Pharmacy: [facility] #[id number] , 1 tabs Oral Daily Start Date: 06/05/14 Status: Ordered Premarin 0.3 mg oral tablet See Instructions, TAKE ONE TABLET BY MOUTH EVERY OTHER DAY, # 30 tabs, 1 Refill( s), eRx: [facility] #[id number], TAKE ONE TABLET BY MOUTH EVERY OTHER [...] BY MOUTH EVERY DAY, # 30 tabs, 1 Refill(s), eRx: [facility] #[id number], TAKE ONE TABLET BY MOUTH EVERY DAY Special Instructions: TAKE ONE TABLET BY MOUTH EVERY DAY Start Date: 10/28/14 Status: Ordered Results No data available for this section Immunizations Vaccine Date Refusal Reason hepatitis A adult vaccine 06/23/05 hepatitis A adult vaccine 12/29/04 influenza virus vaccine, live 09/14/13 influenza virus vaccine, live 09/15/12 pneumococcal 23-polyvalent vaccine 07/01/06 pneumococcal 23-polyvalent vaccine 05/26/01 tetanus-diphth toxoids (Td) adult/adol 06/11/03 Procedures Procedure Date Related Diagnosis Body Site Left C2-3 Radiofrequency 10/23/14 Left C2-3 Medial [...] Extracted from: Title: Office Visit Note Author: Cindy Simmons LIFT TRUCK MECHANIC Date: 11/11/14 Assessment/Plan Cervical spondylosis Cervical vertebral fusion Degeneration of cervical intervertebral disc (disorder) HEADACHE Neck pain (finding) Spondylolisthesis l4-5, l5-S1 Thoracic or lumbosacral neuritis or radiculitis, unspecified and I discussed with the patient that her increased pain is due to irritation of the nerves at the site of the radiofrequency ablation. She will take a Medrol Dosepak to treat her Neuritis. She was informed that she should have relief within 5 days. She may follow-upasneeded for reevaluation. She will call backafter 5 daysif her symptoms do not improve. HPI,physical exam, and plan of care are in agreement with Dr. Albright's findings.
--- OUTSIDE RECORDS SUMMARY | 2016-11-22 20:11 | XMS REPORT | Referral Summary ---
Author Author [facility] [place], [facility] Organization [facility] Address Unknown Phone Unavailable Care Team Providers Care Section Crews Activities Clerk Name Role Phone Marlena Silva Primary Care Physician [phone] Encounter VC Date(s): 12/17/15 - 12/17/15 [facility] [place] [address] [place] [address] Discharge Diagnosis: Nonhealing nonsurgical wound Discharge Diagnosis: Benign essential hypertension Discharge Disposition: 01-Home or Self Care Attending Physician: Tahira Reyes PA-C Admitting Physician: Tahira Reyes PA-C Vital Signs Most recent to 1 oldest [Reference Range]: Peripheral Pulse 72 bpm Rate [60-100 bpm] (12/17/15 10:17 AM) Respiratory Rate 16 br/min [14-20 br/min] (12/17/15 10:17 AM) Blood Pressure 172/94 mmHg [90-140/60-90 mmHg] *HI* (12/17/15 10:17 AM) Problem List Condition Effective Dates Status [...] BY MOUTH DAILY, # 90 tabs, eRx: [facility] #[id number], TAKE ONE TABLET BY MOUTH DAILY Start Date: 09/22/15 Status: Ordered lisinopril 20 mg oral tablet 20 mg 1 tabs, Oral, Daily, # 30 tabs, 1 Refill(s), Pharmacy: [facility] # [id number] Start Date: 10/27/15 Status: Ordered metoprolol succinate 25 mg oral tablet, extended release 25 mg 1 tabs, Oral, Daily, # 30 tabs, 0 Refill(s), Pharmacy: [facility] # [id number] Start Date: 12/17/15 Status: Ordered Multivitamin Multivitamin, take 1 by oral route every day, 0 Refill(s) Start Date: 02/04/14 Status: Ordered [place] 5 mg-325 mg oral tablet 1 tabs, Oral, q6hr, as needed for pain, rx must last 30 days Needs appt. for next refill., # 90 tabs, 0 Refill(s) Start Date: 07/15/15 Status: Ordered omeprazole 20 mg oral delayed release capsule See Instructions, TAKE ONE CAPSULE BY MOUTH DAILY, # 30 caps, eRx: [facility] #[id number], TAKE ONE CAPSULE BY MOUTH DAILY Start [...] Education Author: Tahira Reyes PA-C Date : 12/17/15 Family Medicine Hypertension Hypertension, commonly called high [...] Released: 08/22/2006 Document Revised: 06/10/2015 Document Reviewed: [employer] Patient Information 2015 [employer] Labs Skin Biopsy WHY AM I HAVING THIS TEST? This test examines skin tissue under a microscope. Your health care provider may perform this test to identify the source of a skin rash or lesion if an allergy is suspected. In this test, a tissue sample (biopsy) is taken to look at your skin's anatomy and to see if certain proteins and antibodies are present. WHAT KIND OF SAMPLE IS TAKEN? A small sample of skin is required for this test. It is usually collected by numbing an area of skin and removing a small walker river of skin. HOW DO I PREPARE FOR THE TEST? There is no preparation required for this test. HOW ARE THE TEST RESULTS REPORTED? Your results may be reported in different ways and are dependent upon the kind of test that is performed. It is your responsibility to obtain your test results. Ask the lab or department performing the test when and how you will get your results. It is most common for your results to be reported as: Normal skin anatomy (histology). No evidence of IgG, IgA, or IgM antibody, complement C3, or fibrinogen. WHAT DO THE RESULTS MEAN? Abnormal findings may indicate certain autoimmune diseases. This test can produce many different results. It is important to talk with your health care provider to discuss your results, treatment options, and if necessary, the need for more tests. Talk with your health care provider if you have any questions about your results. This information is not intended to replace advice given to you by your health care provider. Make sure you discuss any questions you have with your health care provider. Document Released: 09/23/2005 Document Revised: 06/10/2015 Document Reviewed: [employer] Patient Information 2015 [employer]. No follow up information was provided. Extracted from: Title: Office Visit Note- Skin Author: Tahira Reyes PA-C Date: lesion, HTN Assessment/Plan Benign essential hypertension At this time, I recommended addition of another agent. Will start her on Metoprolol succinate 25 mg daily. I would like her to recheck in 1-2 weeks to see how she is feeling. D/w pt that it can lower the pulse, and she can feel a little fatigued or lightheaded. Monitor for these sx. If this medication is not tolerated, could try Norvasc. Ordered: Office Visit Level 4 Est 06755 Nonhealing nonsurgical wound, Nonhealing nonsurgical wound D/w p that this does not look infected at this time, but will see if the culture shows any bacteria. I think thisneeds to be excised.Given the location, will probably refer to Dr. Khan to remove. My concern is that this iscancerous.Will waitfor culture results. Pt was not started on any abx today. Ordered: Office Visit Level 4 Est 22261 Wound Culture Orders: metoprolol, 25 mg 1 tabs, Oral, Daily, # 30 tabs, 0 Refill(s), Pharmacy: [facility] #[id number]
--- OUTSIDE RECORDS SUMMARY | 2016-11-22 20:11 | XMS REPORT | Referral Summary ---
Author Author [facility] [place], [facility] Organization [facility] Address Unknown Phone Unavailable Care Team Providers Care Industrial Engineering Professor Name Role Phone Marlena Silva Primary Care Physician [phone] Encounter VC Date(s): 11/07/15 - 11/07/15 [facility] [place] [address] [place] [address] Discharge Disposition: 01-Home or Self Care Attending Physician: Miguel Angel Silva MD Admitting Physician: Miguel Angel Silva MD Vital Signs Most recent to 1 oldest [Reference Range]: Blood Pressure 124/80 mmHg [90-140/60-90 mmHg] (11/07/15 1:35 PM) Problem List Condition Effective Dates Status [...] BY MOUTH DAILY, # 90 tabs, eRx: [facility] #[id number], TAKE ONE TABLET BY MOUTH DAILY Start Date: 09/22/15 Status: Ordered lisinopril 20 mg oral tablet 20 mg 1 tabs, Oral, Daily, # 30 tabs, 1 Refill(s), Pharmacy: [facility] # [id number] Start Date: 10/27/15 Status: Ordered Multivitamin Multivitamin, take 1 by oral route every day, 0 Refill(s) Start Date: 02/04/14 Status: Ordered [place] 5 mg-325 mg oral tablet 1 tabs, Oral, q6hr, as needed for pain, rx must last 30 days Needs appt. for next refill., # 90 tabs, 0 Refill(s) Start Date: 07/15/15 Status: Ordered omeprazole 20 mg oral delayed release capsule See Instructions, TAKE ONE CAPSULE BY MOUTH DAILY, # 30 caps, eRx: [facility] #[id number], TAKE ONE CAPSULE BY MOUTH DAILY Start [...]
--- OUTSIDE RECORDS SUMMARY | 2016-11-22 20:11 | XMS REPORT | Referral Summary ---
Author Author [facility] Organization [facility] Address Unknown Phone Unavailable Care Team Providers Care Allocations Clerk Name Role Phone Marlena Silva Primary Care Physician [phone] Encounter VC Date(s): 12/18/15 - 12/18/15 [facility] [address] [facility] [place] [address] Discharge Diagnosis: Lumbago Discharge Diagnosis: Cervical spondylosis Discharge Diagnosis: Cervical vertebral fusion Discharge Diagnosis: Trochanteric bursitis, left hip Discharge Diagnosis: Cervicalgia Discharge Diagnosis: Spinal stenosis, lumbar Discharge Diagnosis: Degeneration of lumbar disc Discharge Disposition: 01-Home or Self Care Attending Physician: Wayne Regan Admitting Physician: Wayne Regan Referring Physician: Miguel Angel Silva MD Vital Signs Most recent to 1 oldest [Reference Range]: Temperature Oral 36.4 degC [35.8-37.3 degC] (12/18/15 1:07 PM) Blood Pressure 124/74 mmHg [90-140/60-90 mmHg] (12/18/15 1:07 PM) Problem List Condition Effective Dates Status [...] BY MOUTH DAILY, # 90 tabs, eRx: [facility] #[id number], TAKE ONE TABLET BY MOUTH DAILY Start Date: 09/22/15 Status: Ordered lisinopril 20 mg oral tablet 20 mg 1 tabs, Oral, Daily, # 30 tabs, 1 Refill(s), Pharmacy: [facility] # [id number] Start Date: 10/27/15 Status: Ordered metoprolol succinate 25 mg oral tablet, extended release 25 mg 1 tabs, Oral, Daily, # 30 tabs, 0 Refill(s), Pharmacy: [facility] # [id number] Start Date: 12/17/15 Status: Ordered Multivitamin Multivitamin, take 1 by oral route every day, 0 Refill(s) Start Date: 02/04/14 Status: Ordered [place] 5 mg-325 mg oral tablet 1 tabs, Oral, q6hr, as needed for pain, rx must last 30 days Needs appt. for next refill., # 90 tabs, 0 Refill(s) Start Date: 07/15/15 Status: Ordered omeprazole 20 mg oral delayed release capsule See Instructions, TAKE ONE CAPSULE BY MOUTH DAILY, # 30 caps, eRx: [facility] #[id number], TAKE ONE CAPSULE BY MOUTH DAILY Start [...]
--- OUTSIDE RECORDS SUMMARY | 2016-11-22 20:11 | XMS REPORT | Continuity of Care Document ---
Author Author Miguel Angel Silva MD [facility] Ambulatory Address [address] [facility] [place] [address] Phone Care Team Providers Care Pickle Pumper Name Role Phone Miguel Angel Silva PP Unavailable Payers Payer name Insurance type Covered constitution party ID Authorization(s) Unknown Problems Condition Effective Dates (start - stop) Clinical Status Swelling, mass, or lump in head and neck - *Chronic Hypothyroidism - *Controlled Other seborrheic keratosis - *Chronic Benign paroxysmal positional vertigo - *Chronic Hyperlipidemia - *Chronic Positional vertigo - *Acute URI (upper respiratory infection) - *Acute Epistaxis - *Acute 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 Abdominal pain - *Chronic Anxiety and depression - *Acute Benign neoplasm of parotid gland - *Symptomatic Sinusitis, maxillary, chronic - Mild Adult hypothyroidism - *Controlled 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 Influenza Vaccine - Generalized headaches - *Chronic Sinusitis - *Chronic Urinary frequency - *Acute Skin lesion of face - *Acute Hypothyroidism - *Chronic Vaginitis - *Acute Acute maxillary sinusitis - *Acute Acute bronchitis - *Acute Ear discomfort - *Fair Control Sensorineural hearing loss - *Chronic Sinusitis - *Fair Control Parotid mass - *Stable Seborrheic keratosis - *Chronic Solar keratosis - *Chronic ACQ SPONDYLOLISTHESIS - LUMBOSACRAL NEURITIS NOS - LUMBAGO - SPIN STEN,LUMBR WO LATRICIA - LUMB/LUMBOSAC DISC DEGEN - LUMBOSACRAL SPONDYLOSIS - Otitis media of right ear - *Acute Family History Family Member Diagnosis Age At Onset Status Unknown Social History Social History Element Description Quantity Unknown Allergies, Adverse Reactions, Alerts Substance Reaction Severity Status ERYTHROMYCIN BASE Dizziness Unknown PENICILLINS Hives/Skin Rash Unknown SULFA (SULFONAMIDE ANTIBIOTICS) RASH Unknown Medications Medication Instructions Dosage Effective Dates (start - stop) Status Mobic 7.5 mg tablet one daily 7.5 MG - Active MULTIVITAMINS (unknown strength) take [...] Height Weight Pulse Rate Blood Pressure Temperature /13:39:00 62.00 in 144.00 lbs 130/80 mm[Hg] 97.3 F Procedures Procedure Date Unknown Encounters Encounter Location Date Patient Visit [facility] Patient Visit [facility] Patient Visit [facility] Patient Visit [facility] Patient Visit Patient Visit [facility] Patient Visit [facility] E[facility] Patient Visit [facility] Patient Visit [facility] Patient Visit [facility] Patient Visit [facility] ENT Patient Visit [facility] Patient Visit [facility] Patient Visit [facility] Patient Visit [facility] Advance Directives Directive Effective Date Unknown
--- OUTSIDE RECORDS SUMMARY | 2016-11-22 20:11 | XMS REPORT | Referral Summary ---
Author Author [facility], [facility] Organization [facility] Address Unknown Phone Unavailable Care Team Providers Care Swim Coach Name Role Phone Marlena Silva Primary Care Physician [phone] Encounter VC Date(s): 01/26/16 - 01/26/16 [facility] [address] [place] [address] Discharge Disposition: 01-Home or Self Care Attending Physician: Miguel Angel Silva MD Admitting Physician: Miguel Angel Silva MD Vital Signs Most recent to 1 oldest [Reference Range]: Blood Pressure 130/76 mmHg [90-140/60-90 mmHg] (01/26/16 8:52 AM) Problem List Condition Effective Dates Status [...] days, # 20 tabs, 0 Refill(s), Pharmacy: [facility] #[id number], 1 tabs Oral q12hr,x10 days Start Date: 01/26/16 Stop Date: 02/05/16 Status: Ordered levothyroxine 100 mcg (0.1 mg) oral tablet See Instructions, TAKE ONE TABLET BY MOUTH DAILY, # 90 tabs, eRx: [facility] #[id number], TAKE ONE TABLET BY MOUTH DAILY Start Date: 12/19/15 Status: Ordered Metoprolol Succinate ER 25 mg oral tablet, extended release See Instructions, TAKE ONE TABLET BY MOUTH DAILY, # 30 tabs, eRx: [facility] #[id number], TAKE ONE TABLET BY MOUTH DAILY Start Date: 01/12/16 Status: Ordered Multivitamin Multivitamin, take 1 by oral route every day, 0 Refill(s) Start Date: 02/04/14 Status: Ordered [place] 5 mg-325 mg oral tablet 1 tabs, Oral, q6hr, as needed for pain, rx must last 30 days Needs appt. for next refill., # 90 tabs, 0 Refill(s) Start Date: 07/15/15 Status: Ordered omeprazole 20 mg oral delayed release capsule See Instructions, TAKE ONE CAPSULE BY MOUTH DAILY, # 30 caps, eRx: [facility] #[id number], TAKE ONE CAPSULE BY MOUTH DAILY Start Date: 01/12/16 Status: Ordered Stool softener Stool softener, take 1 capsule by oral route every day at bedtime as needed, 0 Refill(s) Start Date: 02/04/14 Status: Ordered Results Urinalysis Most recent to 1 oldest [Reference Range]: UA Color Yellow (01/26/16 1:30 PM) UA Appear Cloudy *ABN* (01/26/16 1:30 PM) UA pH [5.0-8.0] 6.5 (01/26/16 1:30 PM) UA Leuk Est Pos 3+ [Negative] *ABN* (01/26/16 1:30 PM) UA Nitrite Negative [Negative] (01/26/16 1:30 PM) UA Protein Trace [Negative] *ABN* (01/26/16 1:30 PM) UA Glucose Negative [Negative] (01/26/16 1:30 PM) UA Ketones Negative [Negative] (01/26/16 1:30 PM) UA Urobilinogen 0.2 mg/dL [<=1.0 mg/dL] (01/26/16 1:30 PM) UA Bili [Negative] Negative (01/26/16 1:30 PM) UA Blood [Negative] Pos 1+ *ABN* (01/26/16 1:30 PM) UA Spec Grav 1.020 [1.003-1.030] (01/26/16 1:30 PM) Type Clean Catch (01/26/16 1:30 PM) UA WBC [0-4 /HPF] >50 /HPF *ABN* (01/26/16 1:30 PM) UA RBC [0-2] 2-5 (01/26/16 1:30 PM) Epithelial Cells >50 /HPF *ABN* (01/26/16 1:30 PM) UA Bacteria Numerous *ABN* (01/26/16 1:30 PM) Immunizations Vaccine Date Refusal Reason tetanus/diphth/pertuss (Tdap) [...] Miguel Angel Silva MD Date: Family Medicine Dysuria Dysuria is the medical term for pain with urination. There are many causes for dysuria, but urinary tract infection is the most common. If a urinalysis was performed it can show that there is a urinary tract infection. A urine culture confirms that you or your child is sick. You will need to follow up with a healthcare provider because: If a urine culture was done you will need to know the culture results and treatment recommendations. If the urine culture was positive, you or your child will need to be put on antibiotics or know if the antibiotics prescribed are the right antibiotics for your urinary tract infection. If the urine culture is negative (no urinary tract infection), then other causes may need to be explored or antibiotics need to be stopped. Today laboratory work may have been done and there does not seem to be an infection. If cultures were done they will take at least 24 to 48 hours to be completed. Today x-rays may have been taken and they read as normal. No cause can be found for the problems. The x-rays may be re-read by a radiologist and you will be contacted if additional findings are made. You or your child may have been put on medications to help with this problem until you can see your primary caregiver. If the problems get better, see your primary caregiver if the problems return. If you were given antibiotics ( medications which kill germs), take all of the mediations as directed for the full course of treatment. If laboratory work was done, you need to find the results. Leave a telephone number where you can be reached. If this is not possible, make sure you find out how you are to get test results. HOME CARE INSTRUCTIONS Drink lots of fluids. For adults, drink eight, 8 ounce glasses of clear juice or water a day. For children, replace fluids as suggested by your caregiver. Empty the bladder often. Avoid holding urine for long periods of time. After a bowel movement, women should cleanse front to back, using each tissue only once. Empty your bladder before and after sexual intercourse. Take all the medicine given to you until it is gone. You may feel better in a few days, but TAKE ALL MEDICINE. Avoid caffeine, tea, alcohol and carbonated beverages, because they tend to irritate the bladder. In men, alcohol may irritate the prostate. Only take [id number] or prescription medicines for pain, discomfort , or fever as directed by your caregiver. If your caregiver has given you a follow-up appointment, it is very important to keep that appointment. Not keeping the appointment could result in a chronic or permanent injury, pain, and disability. If there is any problem keeping the appointment, you must call back to this facility for assistance. SEEK IMMEDIATE MEDICAL CARE IF: Back pain develops. A fever develops. There is nausea (feeling sick to your stomach) or vomiting (throwing up). Problems are no better with medications or are getting worse. MAKE SURE YOU: Understand these instructions. Will watch your condition. Will get help right away if you are not doing well or get worse. This information is not intended to replace advice given to you by your health care provider. Make sure you discuss any questions you have with your health care provider. Document Released: 05/20/2005 Document Revised: 11/13/2012 Document Reviewed: [facility] Patient Information 2015 [facility]. Home Health Care Cellulitis Cellulitis is an infection of the skin and the tissue under the skin. The infected area is usually red and tender. This happens most often in the arms and lower legs. HOME CARE Take your antibiotic medicine as told. Finish the medicine even if you start to feel better. Keep the infected arm or leg raised (elevated). Put a warm cloth on the area up to 4 times per day. Only take medicines as told by your doctor. Keep all doctor visits as told. GET HELP IF: You see red streaks on the skin coming from the infected area. Your red area gets bigger or turns a dark color. Your bone or joint under the infected area is painful after the skin heals. Your infection comes back in the same area or different area. You have a puffy (swollen) bump in the infected area. You have new symptoms. You have a fever. GET HELP RIGHT AWAY IF: You feel very sleepy. You throw up (vomit) or have watery poop (diarrhea). You feel sick and have muscle aches and pains. MAKE SURE YOU: Understand these instructions. Will watch your condition. Will get help right away if you are not doing well or get worse. This information is not intended to replace advice given to you by your health care provider. Make sure you discuss any questions you have with your health care provider. Document Released: 02/07/2009 Document Revised: 01/06/2015 Document Reviewed: [employer] Patient Information 2015 [employer]. No follow up information was provided. Extracted from: Title: Office Visit Note Author: Miguel Angel Silva MD Date: 01/26/16 Assessment/Plan Cellulitis of left anterior lower leg Rx for Cipro and also cultured the site. Ordered: Office Visit Level 3 Est 93757 Dysuria, Dysuria Will collect a UA. Ordered: Office Visit Level 3 Est 82892 Urinalysis with Culture if Indicated Orders: ciprofloxacin, 500 mg 1 tabs, Oral, q12hr, X 10 days, # 20 tabs, 0 Refill(s), Pharmacy: [facility] #[id number], 1 tabs Oral q12hr,x10 days Wound Culture
--- OUTSIDE RECORDS SUMMARY | 2016-11-22 20:11 | XMS REPORT | Referral Summary ---
Author Author [facility], [facility] Care Organization [facility] Address Unknown Phone Unavailable Care Team Providers Care Varnish Inspector Name Role Phone Marlena Silva Primary Care Physician [phone] Encounter Date(s): 07/17/16 - 07/17/16 [facility] [place], [address] [place] [address] Discharge Diagnosis: Lumbago Discharge Diagnosis: Abnormal blood sugar Discharge Diagnosis: Dysuria Discharge Diagnosis: Benign essential hypertension Discharge Diagnosis: Osteoarthritis Discharge Disposition: 01-Home or Self Care Attending Physician: Diogenes Stein MD Admitting Physician: Diogenes Stein MD Vital Signs Most recent to 1 oldest [Reference Range]: Temperature Tympanic 36.6 degC [36.6-38.1 degC] (07/17/16 10:24 AM) Blood Pressure 152/84 mmHg [90-140/60-90 mmHg] *HI* (07/17/16 10:24 AM) Problem List Condition Effective Dates Status [...] oral tablet 500 mg 1 tabs, Oral, BID, # 20 tabs, 0 Refill(s), Pharmacy: [facility] # [id number], 1 tabs Oral BID Start Date: 07/17/16 Status: Ordered levothyroxine 100 mcg (0.1 mg) oral tablet See Instructions, TAKE ONE TABLET BY MOUTH DAILY, # 90 tabs, 2 Refill(s), eRx: [facility] #[id number], TAKE ONE TABLET BY MOUTH DAILY Start Date: 03/09/16 Status: Ordered Metoprolol Succinate ER 25 mg oral tablet, extended release See Instructions, TAKE ONE TABLET BY MOUTH DAILY, # 30 tabs, 1 Refill(s), eRx: [facility] #[id number], TAKE ONE TABLET BY MOUTH DAILY Start Date: 07/12/16 Status: Ordered Multivitamin Multivitamin, take 1 by oral route every day, 0 Refill(s) Start Date: 02/04/14 Status: Ordered omeprazole 20 mg oral delayed release capsule See Instructions, TAKE ONE CAPSULE BY MOUTH DAILY, # 30 caps, eRx: [facility] #[id number], TAKE ONE CAPSULE BY MOUTH DAILY Start Date: 06/28/16 Status: Ordered phenazopyridine 200 mg oral tablet 200 mg 1 tabs, Oral, TID, # 10 tabs, 0 Refill(s), Pharmacy: [facility] # [id number], 1 tabs Oral TID Start Date: 07/17/16 Status: Ordered Results No data available for this section Immunizations Vaccine Date Refusal Reason tetanus/diphth/pertuss (Tdap) adult/adol 12/30/15 hepatitis A adult vaccine 06/23/05 hepatitis A adult vaccine 12/29/04 influenza virus vaccine, inactivated1 06/04/16 influenza virus vaccine, inactivated 06/04/16 influenza virus vaccine, live 09/14/13 influenza virus vaccine, live 09/15/12 pneumococcal 23-polyvalent vaccine 07/01/06 pneumococcal 23-polyvalent vaccine 05/26/01 tetanus-diphth toxoids (Td) adult/adol 06/11/03 1Location History: [place] Procedures Procedure Date Related Diagnosis Body Site [...] Extracted from: Title: Ambulatory Patient Education Author: Diogenes Stein MD Date: Family Medicine Back Injury Prevention Back injuries can be very painful. They can also be difficult to heal. After having one back injury, you are more likely to injure your back again. It is important to learn how to avoid injuring or re-injuring your back. The following tips can help you to prevent a back injury. WHAT SHOULD I KNOW ABOUT PHYSICAL FITNESS? Exercise for 30 minutes per day on most days of the week or as directed by your health care provider. Make sure to: Do aerobic exercises, such as walking, jogging, biking, or swimming. Do exercises that increase balance and strength, such as arya chi and yoga. These can decrease your risk of falling and injuring your back. Do stretching exercises to help with flexibility. Try to develop strong abdominal muscles. Your abdominal muscles provide a lot of the support that is needed by your back. Maintain a healthy weight. This helps to decrease your risk of a back injury. WHAT SHOULD I KNOW ABOUT MY DIET? Talk with your health care provider about your overall diet. Take supplements and vitamins only as directed by your health care provider. Talk with your health care provider about how much calcium and vitamin D you need each day. These nutrients help to prevent weakening of the bones ( osteoporosis). Osteoporosis can cause broken (fractured) bones, which lead to back pain. Include good sources of calcium in your diet, such as dairy products, green leafy vegetables, and products that have had calcium added to them ( fortified). Include good sources of vitamin D in your diet, such as milk and foods that are fortified with vitamin D. WHAT SHOULD I KNOW ABOUT MY POSTURE? Sit up straight and stand up straight. Avoid leaning forward when you sit or hunching over when you stand. Choose chairs that have good low-back (lumbar) support. If you work at a desk, sit close to it so you do not need to lean over. Keep your chin tucked in. Keep your neck drawn back, and keep your elbows bent at a right angle. Your arms should look like the letter "L." Sit high and close to the steering wheel when you drive. Add a lumbar support to your car seat, if needed. Avoid sitting or standing in one position for very long. Take breaks to get up, stretch, and walk around at least one time every hour. Take breaks every hour if you are driving for long periods of time. Sleep on your side with your knees slightly bent, or sleep on your back with a pillow under your knees. Do not lie on the front of your body to sleep. WHAT SHOULD I KNOW ABOUT LIFTING, TWISTING, AND REACHING? Lifting and Heavy Lifting Avoid heavy lifting, especially repetitive heavy lifting. If you must do heavy lifting: Stretch before lifting. Work slowly. Rest between lifts. Use a tool such as a cart or a bowen to move objects if one is available. Make several small trips instead of carrying one heavy load. Ask for help when you need it, especially when moving big objects. Follow these steps when lifting: Stand with your feet shoulder-width apart. Get as close to the object as you can. Do not try to cloth picker a heavy object that is far from your body. Use handles or lifting straps if they are available. Bend at your knees. Squat down, but keep your heels off the floor. Keep your shoulders pulled back, your chin tucked in, and your back straight. Lift the object slowly while you tighten the muscles in your legs, abdomen, and buttocks. Keep the object as close to the center of your body as possible. Follow these steps when putting down a heavy load: Stand with your feet shoulder-width apart. Lower the object slowly while you tighten the muscles in your legs, abdomen, and buttocks. Keep the object as close to the center of your body as possible. Keep your shoulders pulled back, your chin tucked in, and your back straight. Bend at your knees. Squat down, but keep your heels off the floor. Use handles or lifting straps if they are available. Twisting and Reaching Avoid lifting heavy objects above your waist. Do not twist at your waist while you are lifting or carrying a load. If you need to turn, move your feet. Do not bend over without bending at your knees. Avoid reaching over your head, across a table, or for an object on a high surface. WHAT ARE SOME OTHER TIPS? Avoid wet floors and icy ground. Keep sidewalks clear of ice to prevent falls. Do not sleep on a mattress that is too soft or too hard. Keep items that are used frequently within easy reach. Put heavier objects on shelves at waist level, and put budget accountant objects on lower or higher shelves. Find ways to decrease your stress, such as exercise, massage, or relaxation techniques. Stress can build up in your muscles. Tense muscles are more vulnerable to injury. Talk with your health care provider if you feel anxious or depressed. These conditions can make back pain worse. Wear flat heel shoes with cushioned soles. Avoid sudden movements. Use both shoulder straps when carrying a backpack. Do not use any tobacco products, including cigarettes, chewing tobacco, or electronic cigarettes. If you need help quitting, ask your health care provider. This information is not intended to replace advice given to you by your health care provider. Make sure you discuss any questions you have with your health care provider. Document Released: 09/29/2005 Document Revised: 01/06/2016 Document Reviewed: [employer] Patient Education 2016 [employer] No follow up information was provided. Extracted from: Title: Office Visit Note Author: Diogenes Stein MD Date: 07/17/16 Assessment/Plan Abnormal blood sugar This issue was reviewed, appears stable, and current therapy continued except as mentioned. Appropriate lab was reviewed from the most recent appropriate entry and lab was ordered if needed in the cpoe/nursing orders, and follow up recommended generally in 90 days and no later then six months. Lab stable. Benign essential hypertension This issue was reviewed, appears stable, and current therapy continued except as mentioned. Appropriate lab was reviewed from the most recent appropriate entry and lab was ordered if needed in the cpoe /nursing orders, and follow up recommended generally in 90 days and no later then six months. The patient had an elevated blood pressure reading and is to monitor their bp and call with a report if consistently > 140/90. The patient reports their blood pressure has been stable at home and is not having any significant or related problems. There has been no chest pain, chest pressure, soa/pichardo. Dysuria UA when willing. Cipro 500mg po bid for ten days. F/U with PCP if not improving. Lumbago This issue was reviewed, appears stable, and current therapy continued except as mentioned. Appropriate lab was reviewed from the most recent appropriate entry and lab was ordered if needed in the cpoe/nursing orders, and follow up recommended generally in 90 days and no later then six months. IMPRESSION: Moderate central spinal stenosis and bilateral neural foraminal encroachment at L4-L5 secondary to annular bulging, facet disease and thickening of ligamentum flavum. There is also grade 1 spondylolisthesis of L4 on L5 at this level. Mild chronic compression fracture involves the inferior endplate of T12. No other focal disc extrusion or high-grade spinal stenosis. [1] Osteoarthritis This issue was reviewed, appears stable, and current therapy continued except as mentioned. Appropriate lab was reviewed from the most recent appropriate entry and lab was ordered if needed in the cpoe/nursing orders, and follow up recommended generally in 90 days and no later then six months. Impression: No acute abnormality is seen. [2]
--- OUTSIDE RECORDS SUMMARY | 2016-11-22 20:12 | XMS REPORT | Referral Summary ---
Author Author [facility] Organization [facility] Address Unknown Phone Unavailable Care Team Providers Care Mold Hoister Name Role Phone Marlena Silva Primary Care Physician [phone] Encounter VC Date(s): 01/20/16 - 01/20/16 [facility] [address] [place] [address] [place] [address]- Discharge Diagnosis: Visit for suture removal Discharge Disposition: 01-Home or Self Care Attending Physician: Jadyn Bunch APRN Admitting Physician: Jadyn Bunch APRN Vital Signs Most recent to 1 oldest [Reference Range]: Temperature Tympanic 36.2 degC [36.6-38.1 degC] *LOW* (01/20/16 10:21 AM) Problem List Condition Effective Dates Status [...] MOUTH DAILY, # 90 tabs, eRx: [facility] #[id number], TAKE ONE TABLET BY MOUTH DAILY Start Date: 12/19/15 Status: Ordered Metoprolol Succinate ER 25 mg oral tablet, extended release See Instructions, TAKE ONE TABLET BY MOUTH DAILY, # 30 tabs, eRx: [facility] #[id number], TAKE ONE TABLET BY MOUTH DAILY Start Date: 01/12/16 Status: Ordered Multivitamin Multivitamin, take 1 by oral route every day, 0 Refill(s) Start Date: 02/04/14 Status: Ordered Edison 5 mg-325 mg oral tablet 1 tabs, Oral, q6hr, as needed for pain, rx must last 30 days Needs appt. for next refill., # 90 tabs, 0 Refill(s) Start Date: 07/15/15 Status: Ordered omeprazole 20 mg oral delayed release capsule See Instructions, TAKE ONE CAPSULE BY MOUTH DAILY, # 30 caps, eRx: [facility] #[id number], TAKE ONE CAPSULE BY MOUTH DAILY Start [...] Title: Ambulatory Patient Education Author: Jadyn Bunch PRESS READER Date : 01/20/16 Family Medicine Suture Removal, Care After Refer [...] Released: 05/17/2002 Document Revised: 06/12/2014 Document Reviewed: [facility] Patient Information 2015 [employer]. No follow up information was provided. Extracted from: Title: Office Visit Note Author: Jadyn Bunch APRN Date: 01/20/16 Assessment/Plan 1.Visit for suture removal Left pretibial surface looks good and the margins appear to benicelysecured. Sutures removed without difficulty and Steri-Strips applied. Do not hesitate to return to our office if you have any surgical concerns. Return to your primary care physicianfor your general medical care. Ordered: Postoperative Est [id number]
--- OUTSIDE RECORDS SUMMARY | 2016-11-22 20:12 | XMS REPORT | Referral Summary ---
Author Author [facility] Organization [facility] Address Unknown Phone Unavailable Care Team Providers Care Health Education Specialist Name Role Phone Marlena Silva Primary Care Physician [phone] Encounter VC Date(s): 12/31/15 - 12/31/15 [facility] [address] [place] [address] [place] [address]- Discharge Diagnosis: Changing skin lesion Discharge Disposition: 01-Home or Self Care Attending Physician: Prieto Montoya MD Admitting Physician: Prieto Montoya MD Referring Physician: Miguel Angel Silva MD Vital Signs Most recent to 1 oldest [Reference Range]: Temperature Tympanic 36.6 degC [36.6-38.1 degC] (12/31/15 9:42 AM) Blood Pressure 128/84 mmHg [90-140/60-90 mmHg] (12/31/15 9:42 AM) Problem List Condition Effective Dates Status [...] MOUTH DAILY, # 90 tabs, eRx: [facility] #[id number], TAKE ONE TABLET BY MOUTH DAILY Start Date: 12/19/15 Status: Ordered metoprolol succinate 25 mg oral tablet, extended release 25 mg 1 tabs, Oral, Daily, # 30 tabs, 0 Refill(s), Pharmacy: [facility] # [id number] Start Date: 12/17/15 Status: Ordered Multivitamin Multivitamin, take 1 by oral route every day, 0 Refill(s) Start Date: 02/04/14 Status: Ordered Aurora 5 mg-325 mg oral tablet 1 tabs, Oral, q6hr, as needed for pain, rx must last 30 days Needs appt. for next refill., # 90 tabs, 0 Refill(s) Start Date: 07/15/15 Status: Ordered omeprazole 20 mg oral delayed release capsule See Instructions, TAKE ONE CAPSULE BY MOUTH DAILY, # 30 caps, eRx: [facility] #[id number], TAKE ONE CAPSULE BY MOUTH DAILY Start [...] Extracted from: Title: Ambulatory Patient Education Author: Prieto Montoya MD Date: Family Medicine Basal Cell Carcinoma Basal cell carcinoma is the most common form of skin cancer. It begins in the basal cells, which are at the bottom of the outer skin layer (epidermis). CAUSES Sun exposure is the most common cause of basal cell carcinoma. Basal cell carcinoma occurs most often on parts of the body that are frequently exposed to the sun, including the: Scalp. Ears. Neck. Face. Arms. Backs of the hands. Legs. However, basal cell carcinoma can occur anywhere on the body. Rarely, tumors develop on areas not exposed to the sun. Other causes of basal cell carcinoma can include: Exposure to arsenic. Exposure to radiation. Certain genetic syndromes, such as xeroderma pigmentosum. RISK FACTORS People at highest risk for basal cell carcinoma include those with: Fair skin. Blonde or red hair. Blue, green, or brown eyes. Childhood freckling. Factors that increase your risk for basal cell carcinoma include: Sun exposure over long periods of time. Childhood sun exposure appears to be a more significant factor than sun exposure as an adult. Repeated sunburns. Use of tanning beds. Having a weakened immune system. SYMPTOMS Five signs of basal cell carcinoma are: An open sore that bleeds, oozes, or crusts. The sore may remain open for 3 or more weeks. This can be an early sign of basal cell carcinoma. Basal cell carcinoma can mimic a pimple that will not heal. A reddish or irritated area which may crust, itch, or cause discomfort. This may occur on areas expose d to the sun. These patches might be easier felt than seen. A shiny, pearly, or translucent bump that is pink, red, or white. The bump may also be figueroa, black, or brown, especially in dark haired people. These bumps can be confused with moles. A pink growth with a slightly elevated, rolled border, and a crusted indentation in the center. As the growth slowly enlarges, tiny blood vessels may develop on the surface. A scar-like white, yellow, or waxy area that looks like shiny, stretched skin. It often has irregular borders. This may be a sign of more aggressive basal cell carcinoma. DIAGNOSIS Your caregiver may be able to tell what is wrong by doing a physical exam. Often , a tissue sample (biopsy) is also taken. The tissue is examined under a microscope. TREATMENT The treatment for basal cell carcinoma depends on the type, size, location, and number of tumors. Possible treatments include: Mohs surgery. This is a procedure done by a skin doctor (pie filling mixer or Mohs surgeon) in his or her office. The cancerous cells are removed layer by layer. This treatment has a high cure rate. Surgical removal of the tumor. Freezing the tumor with liquid nitrogen (cryosurgery). Plastic surgery to remove the tumor, in the case of large tumors. Radiation. This may be used for tumors on the face. Photodynamic therapy. A chemical cream is applied to the skin and light exposure is used to activate the chemical. Chemical treatments, such as imiquimod cream and interferon injections. This may be used to remove superficial tumors with minimal scarring. Electrodesiccation and curettage. This involves alternately scraping and burning the tumor, using an electric current to control bleeding. Basal cell carcinoma can almost always be cured. It rarely spreads to other areas of the body (metastasizes). Basal cell carcinoma may come back at the same location (recur), but it can be treated again if this occurs. PREVENTION Avoid the sun between 10:00 a.m. and 4:00 pm when it is the strongest. Use a sunscreen or sunblock with a sun protection factor of 30 or greater. Apply sunscreen at least 30 minutes before exposure to the sun. Reapply sunscreen every 2 to 4 hours while you are outside, after swimming, and after excessive sweating. Always wear protective hats, clothing, and sunglasses with ultraviolet protection. Avoid tanning beds. HOME CARE INSTRUCTIONS Avoid unprotected sun exposure. Follow your caregiver's instructions for self-exams. Look for new spots or changes in your skin. Keep all follow-up appointments as directed by your caregiver. SEEK MEDICAL CARE IF: You notice any new spots or changes in your skin. You have had a basal cell carcinoma tumor removed and you notice a new growth in the same location. This information is not intended to replace advice given to you by your health care provider. Make sure you discuss any questions you have with your health care provider. Document Released: 02/26/2004 Document Revised: 02/20/2013 Document Reviewed: [facility] Patient Information [address] [employer] [facility]. No follow up information was provided.
--- OUTSIDE RECORDS SUMMARY | 2016-11-22 20:12 | XMS REPORT | Referral Summary ---
Author Organization Unknown Address Unknown Phone Unavailable Care Team Providers Care Cargo Surveyor Name Role Phone Marlena Silva Primary Care Physician [phone] Encounter VC Date(s): 09/12/14 - 09/12/14 [facility] [address] [place], [place] [address] Discharge Diagnosis: Cervical spondylosis Discharge Diagnosis: Cervical vertebral fusion Discharge Diagnosis: Cervical pain Discharge Disposition: Home or Self Care Attending Physician: Felton Albright MD Admitting Physician: Felton Albright MD Vital Signs Most recent to 1 oldest [Reference Range]: Peripheral Pulse 64 bpm Rate [60-100 bpm] (09/12/14 7:40 AM) Respiratory Rate 18 br/min [14-20 br/min] (09/12/14 7:40 AM) Blood Pressure 148/91 mmHg [90-140/60-90 mmHg] *HI* (09/12/14 7:40 AM) Most recent to 1 oldest [Reference Range]: SpO2 98 % (09/12/14 7:40 AM) Problem List Condition Effective Dates Status Health Status Informant Allergic Active rhinitis(Confirmed) Hay fever(Confirmed) Active Bronchitis(Confirmed Active ) Cervical fusion in Resolved neck(Confirmed) Cervical vertebral Active fusion(Confirmed) Cervical vertebral Active fusion(Confirmed) Cervical Active spondylosis(Confirme d) 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 ) Degeneration of Active lumbar disc(Confirmed) Herpes 2011 Active zoster(Confirmed) IBS (irritable bowel [...] DAY, # 60 tabs, 1 Refill(s), eRx: [facility] #[id number], TAKE ONE TABLET BY MOUTH TWICE A DAY Special Instructions: TAKE ONE TABLET BY MOUTH TWICE A DAY Start Date: 07/23/14 Status: Ordered Multivitamin Multivitamin, take 1 by oral route every day, 0 Refill(s) Special Instructions: take 1 by oral route every day Start Date: 02/04/14 Status: Ordered [place]o 5 mg-325 mg oral tablet 1 tabs, Oral, q6hr, as needed for pain, # 60 tabs, 0 Refill(s) Start Date: 07/30/14 Status: Ordered omeprazole 20 mg oral delayed release tablet 1 tabs, Oral, Daily, # 30 tabs, 4 Refill(s), Pharmacy: [facility] #[id number] , 1 tabs Oral Daily Start Date: 06/05/14 Status: Ordered Premarin 0.3 mg oral tablet 1 tabs, Oral, takes once every three days, 0 Refill(s) Special Instructions: takes once every three days Start Date: 02/04/14 Status: Ordered Stool softener Stool softener, take 1 capsule by oral route every day at bedtime as needed, 0 Refill(s) Special Instructions: take 1 capsule by oral route every day at bedtime as needed Start Date: 02/04/14 Status: Ordered Synthroid 100 mcg (0.1 mg) oral tablet See Instructions, TAKE ONE TABLET BY MOUTH EVERY DAY, # 30 tabs, 2 Refill(s), eRx: [facility] #[id number], TAKE ONE TABLET BY MOUTH EVERY DAY Special Instructions: TAKE ONE TABLET BY MOUTH EVERY DAY Start Date: 07/23/14 Status: Ordered Tylenol Extra Strength 650 mg, Oral, q6hr, 0 Refill(s) Start Date: 02/19/14 Status: Ordered Results No data available for this section Immunizations Vaccine Date Refusal Reason hepatitis A adult vaccine 06/23/05 hepatitis A adult vaccine 12/29/04 influenza virus vaccine, live 09/14/13 influenza virus vaccine, live 09/15/12 pneumococcal 23-polyvalent vaccine 07/01/06 pneumococcal 23-polyvalent vaccine 05/26/01 tetanus-diphth toxoids (Td) adult/adol 06/11/03 Procedures Procedure Date Related Diagnosis Body Site Injection(s), diagnostic or therapeutic 09/12/14 agent, paravertebral facet (zygapophyseal) joint (or nerves innervating that joint) with image guidance (fluoroscopy or CT), cervical or thoracic; single level Left C2-3 Medial Branch Block 09/12/14 Left [...]
--- OUTSIDE RECORDS SUMMARY | 2016-11-22 20:12 | XMS REPORT | Referral Summary ---
Author Organization Unknown Address Unknown Phone Unavailable Care Team Providers Care Internet And E Business Project Manager Name Role Phone Marlena Silva Primary Care Physician [phone] Encounter VC Date(s): 09/25/14 - 09/25/14 [facility], [address] [place] [address]- Discharge Diagnosis: Cervical spondylosis Discharge Diagnosis: Degeneration of lumbar disc Discharge Diagnosis: Lumbago Discharge Diagnosis: Visit for screening mammogram Discharge Disposition: Home or Self Care Attending Physician: Miguel Angel Silva MD Admitting Physician: Miguel Angel Silva MD Vital Signs Most recent to 1 oldest [Reference Range]: Blood Pressure 140/80 mmHg [90-140/60-90 mmHg] (09/25/14 9:10 AM) Problem List Condition Effective Dates Status [...] DAY, # 60 tabs, 1 Refill(s), eRx: [facility] #[id number], TAKE ONE TABLET BY MOUTH TWICE A DAY Special Instructions: TAKE ONE TABLET BY MOUTH TWICE A DAY Start Date: 07/23/14 Status: Ordered Multivitamin Multivitamin, take 1 by oral route every day, 0 Refill(s) Special Instructions: take 1 by oral route every day Start Date: 02/04/14 Status: Ordered [place] 5 mg-325 mg oral tablet 1 tabs, Oral, q6hr, as needed for pain, # 60 tabs, 0 Refill(s) Start Date: 09/16/14 Status: Ordered omeprazole 20 mg oral delayed release tablet 1 tabs, Oral, Daily, # 30 tabs, 4 Refill(s), Pharmacy: [facility] #[id number] , 1 tabs Oral Daily Start Date: 06/05/14 Status: Ordered Premarin 0.3 mg oral tablet See Instructions, TAKE ONE TABLET BY MOUTH EVERY OTHER DAY, # 30 tabs, 1 Refill( s), eRx: [facility] #[id number], TAKE ONE TABLET BY MOUTH EVERY OTHER [...] DAY, # 30 tabs, 2 Refill(s), eRx: [facility] #[id number], TAKE ONE TABLET BY MOUTH EVERY DAY [...] Body Site Left C2-3 Medial Branch Block 09/12/14 Left [...] Angel Silva MD Date: Family Medicine Back Exercises Back exercises help treat and prevent back injuries. The goal of back exercises is to increase the strength of your abdominal and back muscles and the flexibility of your back. These exercises should be started when you no longer have back pain. Back exercises include: Pelvic Tilt. Lie on your back with your knees bent. Tilt your pelvis until the lower part of your back is against the floor. Hold this position 5 to 10 sec and repeat 5 to 10 times. Knee to Chest. Pull first 1 knee up against your chest and hold for 20 to 30 seconds, repeat this with the other knee, and then both knees. This may be done with the other leg straight or bent, whichever feels better. Sit-Ups or Curl-Ups. Bend your knees 90 degrees. Start with tilting your pelvis, and do a partial, slow sit-up, lifting your trunk only 30 to 45 degrees off the floor. Take at least 2 to 3 seconds for each sit-up. Do not do sit-ups with your knees out straight. If partial sit-ups are difficult, simply do the above but with only tightening your abdominal muscles and holding it as directed. Hip-Lift. Lie on your back with your knees flexed 90 degrees. Push down with your feet and shoulders as you raise your hips a couple inches off the floor; hold for 10 seconds, repeat 5 to 10 times. Back arches. Lie on your stomach, propping yourself up on bent elbows. Slowly press on your hands, causing an arch in your low back. Repeat 3 to 5 times. Any initial stiffness and discomfort should lessen with repetition over time. Shoulder-Lifts. Lie face down with arms beside your body. Keep hips and torso pressed to floor as you slowly lift your head and shoulders off the floor. Do not overdo your exercises, especially in the beginning. Exercises may cause you some mild back discomfort which lasts for a few minutes; however, if the pain is more severe, or lasts for more than 15 minutes, do not continue exercises until you see your caregiver. Improvement with exercise therapy for back problems is slow. See your caregivers for assistance with developing a proper back exercise program. Document Released: 09/29/2005 Document Revised: 11/13/2012 Document Reviewed: [facility] Patient Information 2014 [facility]. Sacroiliac Joint Dysfunction The sacroiliac joint connects the lower part of the spine (the sacrum ) with the bones of the pelvis. CAUSES Sometimes, there is no obvious reason for sacroiliac joint dysfunction. Other times, it may occur During . After injury, such as: Car accidents. Sport-related injuries. Work-related injuries. Due to one leg being shorter than the other. Due to other conditions that affect the joints, such as: Rheumatoid arthritis. Gout. Psoriasis. Joint infection (septic arthritis ). SYMPTOMS Symptoms may include: Pain in the: Lower back. Buttocks. Groin. Thighs and legs. Difficult sitting, standing, walking, lying, bending or lifting. DIAGNOSIS A number of tests may be used to help diagnose the cause of sacroiliac joint dysfunction, including: Imaging tests to look for other causes of pain, including: MRI. CT scan. Bone scan. Diagnostic injection: During a special x-ray (called fluoroscopy), a needle is put into the sacroiliac joint. A numbing medicine is injected into the joint. If the pain is improved or stopped, the diagnosis of sacroiliac joint dysfunction is more likely. TREATMENT There are a number of types of treatment used for sacroiliac joint dysfunction, including: Only take [id number] or prescription medicines for pain, discomfort, or fever as directed by your caregiver. Medications to relax muscles. Rest. Decreasing activity can help cut down on painful muscle spasms and allow the back to heal. Application of heat or ice to the lower back may improve muscle spasms and soothe pain. Brace. A special back brace, called a sacroiliac belt, can help support the joint while your back is healing. Physical therapy can help teach comfortable positions and exercises to strengthen muscles that support the sacroiliac joint. Cortisone injections. Injections of steroid medicine into the joint can help decrease swelling and improve pain. Hyaluronic acid injections. This chemical improves lubrication within the sacroiliac joint, thereby decreasing pain. Radiofrequency ablation. A special needle is placed into the joint, where it delgado away nerves that are carrying pain messages from the joint. Surgery. Because pain occurs during movement of the joint, screws and plates may be installed in order to limit or prevent joint motion. HOME CARE INSTRUCTIONS Take all medications exactly as directed. Follow instructions regarding both rest and physical activity, to avoid worsening the pain. Do physical therapy exercises exactly as prescribed. SEEK IMMEDIATE MEDICAL CARE IF: You experience increasingly severe pain. You develop new symptoms, such as numbness or tingling in your legs or feet. You lose bladder or bowel control. Document Released: 11/18/2009 Document Revised: 11/13/2012 Document Reviewed: [facility] Patient Information 2014 [facility]. No follow up information was provided. Extracted from: Title: Office Visit Note Author: Miguel Angel Silva MD Date: 09/25/14 Assessment/Plan Cervical spondylosis Continue with the current medications. Will set her up for lab. Ordered: Office Visit Level 5 Est 45387 Degeneration of lumbar disc Ordered: Office Visit Level 5 Est 35365 Lumbago Ordered: Office Visit Level 5 Est 56998 Visit for screening mammogram Ordered: Office Visit Level 5 Est 62618 Orders: MG Mammogram Routine Screening Bilat
--- OUTSIDE RECORDS SUMMARY | 2016-11-22 20:12 | XMS REPORT | Referral Summary ---
Author Author [facility] Organization [facility] Address Unknown Phone Unavailable Care Team Providers Care Certified Alcohol And Drug Counselor Name Role Phone Marlena Silva Primary Care Physician [phone] Encounter VC Date(s): 01/14/16 - 01/14/16 [facility], Surgery [address] [place] [address] [place] [address]- Discharge Diagnosis: Visit for suture removal Discharge Disposition: 01-Home or Self Care Attending Physician: Jadyn Bunch APRN Admitting Physician: Jadyn Bunch APRN Vital Signs Most recent to 1 oldest [Reference Range]: Temperature Tympanic 36.7 degC [36.6-38.1 degC] (01/14/16 10:12 AM) Problem List Condition Effective Dates Status [...] MOUTH DAILY, # 90 tabs, eRx: [facility] #[id number], TAKE ONE TABLET BY MOUTH DAILY Start Date: 12/19/15 Status: Ordered Metoprolol Succinate ER 25 mg oral tablet, extended release See Instructions, TAKE ONE TABLET BY MOUTH DAILY, # 30 tabs, eRx: [facility] #[id number], TAKE ONE TABLET BY MOUTH DAILY Start Date: 01/12/16 Status: Ordered Multivitamin Multivitamin, take 1 by oral route every day, 0 Refill(s) Start Date: 02/04/14 Status: Ordered [place] 5 mg-325 mg oral tablet 1 tabs, Oral, q6hr, as needed for pain, rx must last 30 days Needs appt. for next refill., # 90 tabs, 0 Refill(s) Start Date: 07/15/15 Status: Ordered omeprazole 20 mg oral delayed release capsule See Instructions, TAKE ONE CAPSULE BY MOUTH DAILY, # 30 caps, eRx: [facility] #[id number], TAKE ONE CAPSULE BY MOUTH DAILY Start [...] Title: Ambulatory Patient Education Author: Jadyn Bunch CONSTRUCTION PROJECT MANAGER Date : 01/14/16 Family Medicine Suture Removal, Care After Refer [...] Released: 05/17/2002 Document Revised: 06/12/2014 Document Reviewed: [facility] Patient Information 2015 [employer]. No follow up information was provided. Extracted from: Title: Office Visit Note Author: Jadyn Bunch CONSTRUCTION PROJECT MANAGER Date: 01/14/16 Assessment/Plan 1.Visit for suture removal Pathology indicatesinvasive squamous cell carcinoma,margins free of involvement. I think it would be safer to have you return in one week for suture removal then to try and remove the sutures today and risks the center of theincision "coming apart." Patient agrees and we'll make an appointment for one week for suture removal. Ordered: Postoperative Est [id number]
--- OUTSIDE RECORDS SUMMARY | 2016-11-22 20:12 | XMS REPORT | Continuity of Care Document ---
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 Follow-up examination, following other surgery - *Routine Cervicalgia - Acute Exacerbation Cervicalgia - *Chronic [...] Dosage Effective Dates (start - stop) Status Flexeril 10 mg tablet take 1 tablet (10MG) by oral route 3 times every day 10 MG - No Longer Active MULTIVITAMINS (unknown strength) take 1 by Oral route every day 2011 - Active Calcium 600 600 mg (1,500 mg) tablet DAILY - Active Synthroid 100 mcg tablet take 1 tablet (100MCG) by oral route every day 100 MCG - Active NORCO (unknown strength) take 1 tablet by oral route every 4 - 6 hours as needed for pain - Active Flexeril 10 mg tablet take [...] mouth at bedtime as needed. - Active Leland 5 mg-325 mg tablet take 1 tablet [...] Height Weight Pulse Rate Blood Pressure Temperature /09:28:00 62.00 in 140.50 lbs 122/84 mm[Hg] 97.0 F Procedures Procedure Date Unknown Encounters Encounter Location Date Patient Visit [facility] Patient Visit [facility] Patient Visit [facility] Patient Visit Patient Visit [facility] ENT Patient Visit [facility] Patient Visit [facility] Pain Patient Visit [facility] New FM Patient Visit [facility] Pain Patient [facility] Patient [facility] Patient Visit [facility] Patient Visit [facility] Pain Patient Visit [facility] ENT Patient Visit [facility] Pain Patient Visit [facility] New FM Patient Visit [facility] Patient Visit Conversion Patient Visit [facility] Patient Visit [facility] Patient Visit [facility] FM Patient Visit [facility] FC Pain Patient Visit [facility] Patient Visit [facility] Advance Directives Directive Effective Date Unknown
--- OUTSIDE RECORDS SUMMARY | 2016-11-22 20:12 | XMS REPORT | Referral Summary ---
Author Author [facility] Organization [facility] Address Unknown Phone Unavailable Care Team Providers Care Prop Setter Name Role Phone Marlena Silva Primary Care Physician [phone] Encounter VC Date(s): 06/18/15 - 06/18/15 [facility] [address] [facility] [place] [id number] Discharge Diagnosis: Cervical spondylosis Discharge Diagnosis: [...] BY MOUTH DAILY, # 90 tabs, eRx: [facility] #[id number], TAKE ONE TABLET BY MOUTH DAILY Start Date: 12/19/15 Status: Ordered lisinopril 20 mg oral tablet 20 mg 1 tabs, Oral, Daily, # 30 tabs, 1 Refill(s), Pharmacy: [facility] # [id number] Start Date: 10/27/15 Status: Ordered metoprolol succinate 25 mg oral tablet, extended release 25 mg 1 tabs, Oral, Daily, # 30 tabs, 0 Refill(s), Pharmacy: [facility] # [id number] Start Date: 12/17/15 Status: Ordered Multivitamin Multivitamin, take 1 by oral route every day, 0 Refill(s) Start Date: 02/04/14 Status: Ordered Dougherty 5 mg-325 mg oral tablet 1 tabs, Oral, q6hr, as needed for pain, rx must last 30 days Needs appt. for next refill., # 90 tabs, 0 Refill(s) Start Date: 07/15/15 Status: Ordered omeprazole 20 mg oral delayed release capsule See Instructions, TAKE ONE CAPSULE BY MOUTH DAILY, # 30 caps, eRx: [facility] #[id number], TAKE ONE CAPSULE BY MOUTH DAILY Start [...] C4-6 Radiofrequency 11/05/15 Left C3-4/C4-5 Transforaminal 08/19/15 Destruction by neurolytic agent, 06/18/15 paravertebral facet joint nerve(s), with imaging guidance (fluoroscopy or CT); cervical or thoracic, single facet joint Destruction by neurolytic agent, 06/18/15 paravertebral facet joint nerve(s), with imaging guidance (fluoroscopy or CT); cervical or thoracic, single facet joint Destruction by neurolytic agent, 06/18/15 paravertebral facet [...]
--- OUTSIDE RECORDS SUMMARY | 2016-11-22 20:12 | XMS REPORT | Referral Summary ---
Author Author [facility] Organization [facility] Address Unknown Phone Unavailable Care Team Providers Care Gambling Floor Supervisor Name Role Phone Marlena Silva Primary Care Physician [phone] Encounter VC Date(s): 09/07/16 - 09/07/16 [facility] [address] [place] [id number] Discharge Disposition: 01-Home or Self Care Attending Physician: Miguel Angel Silva MD Admitting Physician: Miguel Angel Silva MD Vital Signs Most recent to 1 oldest [Reference Range]: Blood Pressure 138/90 mmHg [90-140/60-90 mmHg] (09/07/16 11:07 AM) Problem List Condition Effective Dates Status [...] DAILY, # 90 tabs, 2 Refill(s), eRx: [facility] #[id number], TAKE ONE TABLET BY MOUTH DAILY Start Date: 03/09/16 Status: Ordered Metoprolol Succinate ER 25 mg oral tablet, extended release See Instructions, TAKE ONE TABLET BY MOUTH DAILY, # 30 tabs, 1 Refill(s), eRx: [facility] #[id number], TAKE ONE TABLET BY MOUTH DAILY Start Date: 07/12/16 Status: Ordered Multivitamin Multivitamin, take 1 by oral route every day, 0 Refill(s) Start Date: 02/04/14 Status: Ordered omeprazole 20 mg oral delayed release capsule See Instructions, TAKE ONE CAPSULE BY MOUTH DAILY, # 30 caps, eRx: [facility] #[id number], TAKE ONE CAPSULE BY MOUTH DAILY Start [...] influenza virus vaccine, live 09/15/12 Given pneumococcal 23-polyvalent vaccine 07/01/06 Recorded pneumococcal 23-polyvalent vaccine 05/26/01 Recorded tetanus-diphth toxoids (Td) adult/adol 06/11/03 Recorded 1Location History: [place] Procedures Procedure Date Related Diagnosis Body Site [...] Education Author: Miguel Angel Silva MD Date: 09/07 Musculoskeletal Contusion A contusion is a deep bruise. Contusions happen when an injury causes bleeding under the skin. Signs of bruising include pain, puffiness (swelling), and discolored skin. The contusion may turn blue, purple, or yellow. HOME CARE Put ice on the injured area. Put ice in a plastic bag. Place a towel between your skin and the bag. Leave the ice on for 15-20 minutes, 03-04 times a day. Only take medicine as told by your doctor. Rest the injured area. If possible, raise (elevate) the injured area to lessen puffiness. GET HELP RIGHT AWAY IF: You have more bruising or puffiness. You have pain that is getting worse. Your puffiness or pain is not helped by medicine. MAKE SURE YOU: Understand these instructions. Will watch your condition. Will get help right away if you are not doing well or get worse. This information is not intended to replace advice given to you by your health care provider. Make sure you discuss any questions you have with your health care provider. Document Released: 02/07/2009 Document Revised: 11/13/2012 Document Reviewed: [employer] Patient Education 2016 [employer] No follow up information was provided. Extracted from: Title: Office Visit Note Author: Miguel Angel Silva MD Date: 09/07/16 Assessment/Plan Contusion of lower back and pelvis, initial encounter Findings are of a degenerative changes. Will suggest heat therapy and Advil or Tylenol. Ordered: Office Visit Level 4 Est 77131 XR Pelvis 1 or 2 Views Follow up as needed.
[2016-11-22] MEDS ORDERED: ACET-2723 PO (20:27)
[2016-11-22] MEDS ORDERED: METO25TA6 PO (20:27)
[2016-11-22] MEDS ORDERED: LEVO112T7 PO (20:27)
--- NOTE | 2016-11-22 20:28 | ERPDOC ---
Departure Disposition Decision Date: Nov 22, 2016 Disposition Decision Time: 21:37 Disposition: 01 DISCHARGED HOME, SELF-CARE Impression Impression Impression: Primary Impression: Facial contusion Encounter type: initial encounter Qualified Codes: S00.83XA - Contusion of other part of head, initial encounter Additional Impressions: Sprain of left shoulder Encounter type: initial encounter Shoulder sprain type: unspecified sprain Qualified Codes: S43.402A - Unspecified sprain of left shoulder joint, initial encounter Contusion of rib on left side Encounter type: initial encounter Qualified Codes: S20.212A - Contusion of left front wall of thorax, initial encounter Fall on same level Encounter type: initial encounter Qualified Codes: W18.30XA - Fall on same level, unspecified, initial encounter Severity: Moderate Condition: Stable Seen By: Physician only Referrals: RJ HOLDEN MD (Family) Follow-up if not improving in the next week Patient Instructions: Fall Prevention (ED) Problems/Meds/Labs Reviewed?: Yes Medications reviewed and manag: Yes Additional Instructions: Use Tylenol and [place] that you have at home Wear sling times one week Follow up care ordered?: Yes Mental Status: Alert, Oriented HPI - Fall/Injury General Chief Complaint: Fall Stated Complaint: FALL-UPPER LEFT SIDE PAIN Time Seen by Provider: 20:28 Source: patient Exam Limitations: no limitations HPI - Fall/Injury Initial Comments Patient is an 81-year-old female approximately 3 PM patient was walking in a park in [place] and fell landing on her left side. Patient was feeling pain in her shoulder and her left chest after the fall, did not get dizzy nauseous no pain before the fall or dysrhythmia. Patient's pain unrelieved by Tylenol so patient drove home to [place] to be evaluated in the emergency department. Occurred At: home Onset: Rapid Duration: 4-6 hrs Pain Scale: Now & Worst: 7/10 Injuries/Pain Location: upper extremity, chest 1 - Pain 2 - Pain 1 - Contusion with swelling and small superficial abrasion, tenderness to palpation inferiorly Context: tripped Loss of Consciousness: no loss of consciousness Allergies: Coded Allergies: sulfamethoxazole (Unverified Allergy, Mild, RASH, 11/22/16) trimethoprim (Unverified Allergy, Mild, RASH, 11/22/16) Penicillins (Verified Allergy, Unknown, 11/22/16) erythromycin base (Verified Allergy, Unknown, 11/22/16) sulindac (Verified Allergy, Unknown, 11/22/16) Past History Past Medical History Metabolic: hypothyroidism Female: UTI Musculoskeletal: neck pain, osteoarthritis Surgical History General: neck, other Reproductive/: hysterectomy Joint: knee, other Family History Family PMH: FOUND: PA, diabetes, hypertension Vaccines Hx Influenza Vaccination: Yes (aug 2011) Hx Pneumococcal Vaccination: No Social History Smoking Status: Never smoker Substance Use Type: does not use Alcohol Intake: none Review of Systems Constitutional Constitutional: DENIES: appetite decrease, chills, fever, weakness ENMT Sinuses: DENIES: congestion, rhinorrhea Cardiovascular Cardiac: DENIES: chest pain, dyspnea on exertion Pulmonary Respiratory: DENIES: cough, dyspnea, sputum, tachypnea GI Upper Abdomen: DENIES: nausea, pain, vomiting Lower Abdomen: DENIES: constipation, diarrhea, pain Musculoskeletal General: see HPI Integumentary Skin: see HPI Neurological General: DENIES: change in strength, headache, numbness, weakness Endocrine Endocrine: DENIES: heat/cold intolerance Hematologic/Lymphatic Hematologic/Lymphatic: DENIES: anemia Physical Exam General General Nourishment: well nourished, well developed General Body Habitus: well groomed Vitals and Pain First Documented Vital Signs Date Time Temp Pulse Resp B/P Pulse Ox O2 Delivery O2 Flow Rate FiO2 11/22/16 20:08 98.7 80 20 139/94 96 Room Air Weight: Kilograms: 67.800 Height (feet): 5 Height (inches): 2.00 Triage Pain Scale: RN VS reviewed by Provider: Yes Eyes (brief) Eyes Brief: found: EOMI, PERRL, trauma (patient has bruising left lateral superior and inferior eyes with tenderness palpation of the left zygomatic arch) ENMT (brief) ENMT Brief: FOUND: TM clear, TM good light reflex, ear canals clear, mucosa moist, normal dentition, NOT FOUND: nasal erythema, nasal exudate, nasal swelling Neck (brief) Neck: NOT FOUND: adenopathy, spasm, tenderness Respiratory (brief) Respiratory: FOUND: clear all tariq, equal bilaterally, NOT FOUND: rales, wheezes Cardiovascular (brief) Cardiac: FOUND: regular rate, regular rhythm Capillary Refill: <2 sec Abdomen (brief) Abdominal Brief: FOUND: bowel normo active x4, soft, NOT FOUND: distended, tender Lymphatic (brief) Lymphatic Brief: NOT FOUND: adenopathy Musculoskeletal (brief) Musculoskeletal Brief: NOT FOUND: spasm, tenderness Fastrak Shoulder Shoulder : Shoulder: Left Inspection: NOT FOUND asymmetry, NOT FOUND deformity, NOT FOUND ecchymosis Palpation: FOUND other (patient with pain on flexion extension of the triceps against resistance), FOUND tenderness, NOT FOUND crepitance, NOT FOUND deformity, NOT FOUND empty shoulder socket, NOT FOUND muscular spasm teres minor , NOT FOUND supraspinatus Motion: FOUND ROM limited extension, NOT FOUND ROM limited ext. rotation, NOT FOUND ROM limited flexion Integumentary (brief) Integumentary Brief: FOUND: dry, pink, warm, NOT FOUND: rash Neurologic (brief) Neurological Brief: FOUND: CN w/o gross def to obs, motor-no gross deficits, sensory-no gross deficits Psychiatric (brief) Psychiatric Brief: FOUND: alert, oriented Differential Diagnoses Considering: Contusion, Fracture, Sprain, Strain Progress Results/Orders Orders Procedure Category Date Status Time Ct Maxillofacial W/O CT 11/22/16 Resulted Contrast 20:34 Shoulder Left 2-3 RAD 11/22/16 Resulted Views 20:34 Ribs Left With Ap RAD 11/22/16 Resulted Chest 20:34 Sling EDM 11/22/16 Transmitted 21:39 Xray Xray #1: Xray: Shoulder L Interpretation: Normal, Interpreted by Me Xray #2: Xray: Ribs L Interpretation: Normal, Interpreted by [place] CT CT : CT: Other (maxillofacial) Interpretation: Normal, Faxed Report TALHA ARAUJO MD Nov 22, 2016 20:28
[2016-11-22] MEDS ORDERED: ACET-2930 PO (20:29)
--- OUTSIDE RECORDS SUMMARY | 2016-11-22 21:41 | XMS REPORT | Continuity of Care Document ---
Author Author [facility] Organization [facility] Address Unknown Phone Unavailable Allergies Active Description [...] Procedures Code [place] [id number] MUSCLE-SKIN GRAFT, HEAD/NECK Ivan Diaz MD 11/12/2013 [id number] EXCISE PAROTID GLAND/LESION Ivan Diaz MD 11/12/2013 Results Encounters ACCT No. Visit Date/Time Discharge Status Pt. Type Provider Facility Loc./Unit Complaint [id number] 11/12/2013 05:32:00 2013 12:30:00 DIS Outpatient Ivan Diaz MD [facility] on [facility] [id number] 11/08/2013 08:46:00 2013 23:59:59 CLS Outpatient Ivan Diaz MD [facility]
[2016-11-22 21:50] VITALS: BP 126/85; PULSE 76; RESP 16; TEMP 98.5; O2SAT 97
--- NOTE | 2016-11-23 08:04 | DI ---
Indication: ITS.REASON: fall left anterior rib pain PROCEDURE: RIBS LEFT WITH AP CHEST: Encounter: Initial Comparison: None FINDINGS: Chest: The lungs are clear. There is no abnormal airspace opacity, pleural effusion or pneumothorax identified. The heart size, pulmonary vasculature and mediastinum are within normal limits. Cervical spine hardware. AP and oblique views of the left ribs: No displaced rib fracture is seen. IMPRESSION: No acute cardiopulmonary abnormality. .
--- NOTE | 2016-11-23 08:04 | DI ---
Indication: ITS.REASON: left shoulder pain post fall PROCEDURE: SHOULDER LEFT 2-3 VIEWS: Encounter: Initial Comparison: None Findings: There is no acute fracture, dislocation or malalignment identified. Impression: No acute osseous abnormality. .
--- NOTE | 2016-11-23 08:06 | DI ---
Indication: ITS.REASON: fall left zygomatic arch pain and swelling PROCEDURE: CT MAXILLOFACIAL W/O CONTRAST: Encounter: Initial Comparison: None Technique: Axial noncontrast CT images through the mid face were performed with coronal and sagittal two-dimensional reformats. Automated Exposure Control and Iterative Reconstruction dose reducing techniques were utilized. Findings: No acute maxillofacial fracture seen. Right sphenoid sinus is also completely opacified. Chronic bilateral maxillary sinusitis with wall thickening and air-fluid levels. Mild ethmoid sinus mucosal disease. Degenerative and postoperative changes in the cervical spine. Globes are intact. Degenerative change in the left TMJ. Impression: No acute maxillofacial fracture. Chronic appearing sinusitis. There is a preliminary report by [facility]. .
== END 2016-11-22 21:50 | disposition home or self-care (01) ==
LOC: ED 20:02
DX: S00.83XA Contusion of other part of head, initial encounter (principal); S20.212A Contusion of left front wall of thorax, initial encounter; S43.402A Unspecified sprain of left shoulder joint, initial encounter; W18.30XA Fall on same level, unspecified, initial encounter; Y93.01 Activity, walking, marching and hiking; Y92.830 Public park as the place of occurrence of the external cause; Y99.8 Other external cause status

== ENCOUNTER → 2017-01-21 | Outpatient (CLI) | payer MEDICARE, OTHER ==
[~2017-01-21] MED LIST changes: +ACET-2723 PO; +ACET-2930 PO; -CALC-603 PO; -ESTR0.3T26 PO; +LEVO112T7 PO; -LEVO125T70 PO; -MELO-31 PO; +METO25TA6 PO
== END ==
LOC: WC.BC 11:09
DX: Z12.31 Encounter for screening mammogram for malignant neoplasm of breast (principal); Z80.3 Family history of malignant neoplasm of breast
CPT/HCPCS: 77063; G0202